=== PATIENT | female | born 1975 | race Caucasian/White ===

== ENCOUNTER 2016-12-02 21:01 | Emergency (ER) | payer OTHER ==
[~2016-12-02] VITALS: Ht 162.6 cm; Wt 110.7 kg
[~2016-12-02 21:01] MED LIST: AMOX1TAB61 PO; HYDR-971 PO
[2016-12-02 21:45] VITALS: BP 141/84
[2016-12-02] MEDS ORDERED: IBUPROFEN 800 MG TABLET. PO ONE (22:30)
[2016-12-02] MEDS ORDERED: LIDOCAINE 1% / SOD BICARB 8.4% 20 ML VIAL. IJ ONE (22:30)
[2016-12-02] MEDS ORDERED: SULF1TAB24 PO (22:43)
--- NOTE | 2016-12-02 22:43 | PHYS DOC ---
Past Medical History Past Medical History: Diabetes-Type II, High Cholesterol, Hypertension Additional Past Medical Histor: tachycardia, cellulitis Past Surgical History: Additional Past Surgical Histo: cervical cancer, R hand Alcohol Use: None Drug Use: None Adult General Chief Complaint Chief Complaint: SKIN PROBLEM HPI HPI Patient is a 41 year old female who presents with abscess. Patient reports she noticed a red spot appear on her L lateral thigh on Wednesday. It has not changed significantly since then, however she says that she has had abscesses get much worse in the past and require hospitalization; as she was unable to get into see her PCP soon, she presents to the ED for evaluation. She has not taken anything for symptoms prior to arrival. No fever. No other acute complaints. Review of Systems Review of Systems Constitutional: Denies fever or chills Respiratory: Denies cough or shortness of breath Cardiovascular: Denies chest pain GI: Denies abdominal pain, nausea, vomiting, or diarrhea Musculoskeletal: Abscess L lateral thigh Neurologic: Denies headache, focal weakness or sensory changes Current Medications Current Medications Current Medications Medications (Trade) Dose Ordered Sig/Xiao Start Time Stop Time Status Last Admin Dose Admin Ibuprofen (Motrin) 800 mg 1X ONCE 12/02/16 22:30 12/02/16 22:31 DC 12/02/16 22:20 800 MG Lidocaine/Sodium Bicarbonate (Buffered Lidocaine 1%) 20 ml 1X ONCE 12/02/16 22:30 12/02/16 22:31 DC 12/02/16 22:30 20 ML Trimethoprim/ Sulfamethoxazole (Bactrim Ds) 1 tab 1X ONCE 12/02/16 22:45 12/02/16 22:46 DC 12/02/16 22:45 1 TAB Allergies Allergies Allergies Coded Allergies Type Severity Reaction Last Updated Verified No Known Drug Allergies 07/29/14 No Physical Exam Physical Exam Constitutional: Well developed, well nourished, no acute distress, non-toxic appearance HENT: Normocephalic, atraumatic Eyes: EOMI, conjunctiva normal, no discharge Neck: No stridor Pulmonary: No respiratory distress Skin: Warm, dry; abscess to L lateral thigh, area of erythema ~2.5cm across with induration and central fluctuance Neurologic: Alert and oriented X 3 Current Patient Data Vital Signs Vital Signs Date Time Temp Pulse Resp B/P Pulse Ox O2 Delivery O2 Flow Rate FiO2 12/02/16 21:45 98.7 90 18 96 Room Air 98.7 EKG EKG [] Radiology/Procedures Radiology/Procedures [] Course & Med Decision Making Course & Med Decision Making Pertinent Labs and Imaging studies reviewed. (See chart for details) Patient is 41 year old female who presents with abscess to L lateral thigh. No systemic symptoms. Ibuprofen and dose of bactrim given in ED. I&D performed without complication. Discussed need to follow up in 2 days for wound check. Discharged with rx for course of bactrim, instructions for follow up, return precautions. Dragon Disclaimer Dragon Disclaimer This electronic medical record was generated, in whole or in part, using a voice recognition dictation system. PROCEDURE Procedure Indication: abscess Procedure: The patient was positioned appropriately. Local anesthesia was achieved with 6cc buffered lidocaine 1%. An incision was then made over the apex of the lesion with a #11 blade and 4cc purulent material was expressed. The drainage cavity was irrigated and packed with sterile gauze. The patient tolerated the procedure well. Complications: none. Departure Departure Impression: Primary Impression: Abscess Disposition: 01 HOME, SELF-CARE Condition: IMPROVED Referrals: Lala OLIVEROS MD (PCP) Patient Instructions: Abscess Additional Instructions: Thank you for allowing us to provide care today in the Emergency Department. Take the provided medication as directed. You will need to be seen again in two days to have the wound checked. You can see your primary care doctor for this, go to an urgent care, or return to the Emergency Department. Return promptly to the Emergency Department if you develop any new or concerning symptoms. Scripts Sulfamethoxazole/Trimethoprim (Bactrim Ds Tablet)1 Each Tablet1 Tab PO BID #14 TAB Prov:CAMDEN ROLAND MD 12/02/16 CAMDEN ROLAND MD Dec 02, 2016 22:43
[2016-12-02] MEDS ORDERED: SMZ/TMP 800/160MG TABLET. PO ONE (22:45)
== END 2016-12-02 22:51 | disposition home or self-care (01) ==
LOC: ER 21:01
DX: L02.416 Cutaneous abscess of left lower limb (principal); E11.9 Type 2 diabetes mellitus without complications; E78.00 Pure hypercholesterolemia, unspecified; I10 Essential (primary) hypertension
CPT/HCPCS: 10060; 99283-25

== ENCOUNTER → 2017-11-01 | Outpatient (CLI) | payer OTHER | END | disposition home or self-care (01) | LOC: MAMMO 14:33 | DX: Z12.31 Encounter for screening mammogram for malignant neoplasm of breast (principal); N60.42 Mammary duct ectasia of left breast | CPT/HCPCS: 77063; 77067 ==

== ENCOUNTER → 2017-11-05 | Outpatient (CLI) | payer OTHER | END | disposition home or self-care (01) | LOC: US 07:44 | DX: N60.42 Mammary duct ectasia of left breast (principal) | CPT/HCPCS: 76641 ==

== ENCOUNTER → 2018-02-02 | Outpatient (CLI) | payer OTHER | END | disposition home or self-care (01) | LOC: US 10:00 | DX: N92.0 Excessive and frequent menstruation with regular cycle (principal); N93.9 Abnormal uterine and vaginal bleeding, unspecified; N94.6 Dysmenorrhea, unspecified; I10 Essential (primary) hypertension; E11.8 Type 2 diabetes mellitus with unspecified complications; E78.00 Pure hypercholesterolemia, unspecified | CPT/HCPCS: 76830; 76856 ==

== ENCOUNTER 2018-03-10 05:55 | Day surgery (SDC) | payer OTHER ==
[2018-03-10] MEDS: IV RINGERS,LACTATED 1000ML 1,000 ML IV (06:37)
[2018-03-10 06:39] LABS: POC GLUCOSE 91 mg/dL (70-99)
[2018-03-10] MEDS ORDERED: LIDOCAINE 1% PF 2 ML VIAL. ID (07:00)
[2018-03-10] MEDS ORDERED: MORPHINE SULFATE 2 MG/ML DISP.SYRIN. IV (07:00)
[2018-03-10] MEDS ORDERED: ONDANSETRON PF 4 MG/2 ML VIAL. IV (07:00)
[2018-03-10] MEDS ORDERED: PROCHLORPERAZINE 10 MG/2 ML VIAL. IV (07:00)
[2018-03-10] MEDS ORDERED: fentaNYL PF VIAL 100 MCG/2 ML VIAL IV ×2 (07:00)
[2018-03-10 07:16] LABS: NEG OBC UR NEG; POS OBC UR POS
[2018-03-10] MEDS ORDERED: DEXAMETHASONE SOD PHOS 20 MG/5 ML VIAL. (07:16)
[2018-03-10] MEDS ORDERED: PROPOFOL 20 ML IV ×2 (07:16→08:31)
[2018-03-10] MEDS ORDERED: fentaNYL PF VIAL 100 MCG/2 ML VIAL (07:16)
[2018-03-10] MEDS ORDERED: LIDOCAINE 2% PF Vial for OR 5 ML VIAL. (07:16)
[2018-03-10] MEDS ORDERED: MIDAZOLAM HCL/PF 2 MG/2 ML VIAL. (07:16)
[2018-03-10] MEDS ORDERED: ONDANSETRON PF 4 MG/2 ML VIAL. (07:16)
[2018-03-10 07:17] LABS: U PREG PATIENT NEGATIVE (NEG)
[2018-03-10] MEDS ORDERED: ceFAZolin SODIUM 1 GM VIAL (09:08)
[2018-03-10] MEDS ORDERED: KETOROLAC 30 MG/ML INJ. (09:19)
[2018-03-10 10:00] LABS: POC GLUCOSE 94 mg/dL (70-99)
[2018-03-10] MEDS: oxyCODONE/APAP 5/325 1 TAB TABLET PO (10:06)
== END 2018-03-10 11:03 | disposition home or self-care (01) ==
LOC: SURG 05:55
DX: D25.9 Leiomyoma of uterus, unspecified (principal); N93.9 Abnormal uterine and vaginal bleeding, unspecified; N92.0 Excessive and frequent menstruation with regular cycle; N94.6 Dysmenorrhea, unspecified; I10 Essential (primary) hypertension; J44.9 Chronic obstructive pulmonary disease, unspecified; G47.30 Sleep apnea, unspecified; E66.9 Obesity, unspecified; K21.9 Gastro-esophageal reflux disease without esophagitis; E11.42 Type 2 diabetes mellitus with diabetic polyneuropathy; E78.00 Pure hypercholesterolemia, unspecified; Z85.41 Personal history of malignant neoplasm of cervix uteri; Z98.890 Other specified postprocedural states; Z87.440 Personal history of urinary (tract) infections; Z87.39 Personal history of other diseases of the musculoskeletal system and connective tissue; Z72.89 Other problems related to lifestyle; Z87.891 Personal history of nicotine dependence
CPT/HCPCS: 58558; 81025; 82962; A7015; J0690; J1100; J1885; J2001; J2250; J2405; J2704; J3010; J7120

== ENCOUNTER 2018-03-31 05:41 | Observation (INO) | payer OTHER ==
[2018-03-31] MEDS ORDERED: ceFAZolin SODIUM 3 GM in IV DEXTROSE 5% 100ML 100 ML IV (06:00)
[2018-03-31] MEDS ORDERED: ESTROGENS, CONJ VAGINAL CREAM 30GM TUBE. (06:25)
[2018-03-31] MEDS ORDERED: SURGICEL HEMOSTAT 4X8 EACH. (06:25)
[2018-03-31 06:42] LABS: POC GLUCOSE 76 mg/dL (70-99)
[2018-03-31 06:49] LABS: NEG OBC UR NEG; POS OBC UR POS
[2018-03-31 06:50] LABS: U PREG PATIENT NEGATIVE (NEG)
[2018-03-31] MEDS: IV RINGERS,LACTATED 1000ML 1,000 ML IV (06:56)
[2018-03-31] MEDS ORDERED: PROCHLORPERAZINE 10 MG/2 ML VIAL. IV ×2 (07:00→12:30)
[2018-03-31] MEDS ORDERED: LIDOCAINE 1% PF 2 ML VIAL. ID (07:00)
[2018-03-31] MEDS ORDERED: fentaNYL PF VIAL 100 MCG/2 ML VIAL IV (07:00)
[2018-03-31] MEDS ORDERED: ONDANSETRON PF 4 MG/2 ML VIAL. IV ×2 (07:00→12:30)
[2018-03-31 07:15] LABS: ADD MAN DIFF? NO
[2018-03-31 07:19] LABS: BASO % 0 % (0-3); EOS # 0.2 x10^3/uL (0.0-0.7); EOS % 2 % (0-3); HEMATOCRIT 41.9 % (36.0-47.0); HEMOGLOBIN 14.6 g/dL (12.0-15.5); LYMPH # 1.7 x10^3/uL (1.0-4.8); LYMPH % 19 % (24-48); MEAN CORPUSCULAR HEMOGLOBIN 31 pg (25-35); MEAN CORPUSCULAR HGB CONC 35 g/dL (31-37); MEAN CORPUSCULAR VOLUME 88 fL (79-100); MONO # 0.6 x10^3/uL (0.0-1.1); MONO % 8 % (0-9); NEUT % 71 % (31-73); PLATELET COUNT 368 x10^3/uL (140-400); RED BLOOD COUNT 4.75 x10^6/uL (3.50-5.40); RED CELL DISTRIBUTION WIDTH 12.7 % (11.5-14.5); WHITE BLOOD COUNT 8.5 x10^3/uL (4.0-11.0)
[2018-03-31] MEDS ORDERED: ROCURONIUM 50 MG/5 ML VIAL. ×2 (07:28→09:25)
[2018-03-31] MEDS ORDERED: fentaNYL PF VIAL 250 MCG/5 ML VIAL (07:28)
[2018-03-31] MEDS ORDERED: MIDAZOLAM HCL/PF 2 MG/2 ML VIAL. (07:28)
[2018-03-31] MEDS ORDERED: KETOROLAC 30 MG/ML INJ FOR OR. INJ (07:29)
[2018-03-31] MEDS ORDERED: ONDANSETRON PF 4 MG/2 ML VIAL. (07:29)
[2018-03-31] MEDS ORDERED: LIDOCAINE 2% PF Vial for OR 5 ML VIAL. (07:29)
[2018-03-31] MEDS ORDERED: DEXAMETHASONE SOD PHOS 20 MG/5 ML VIAL. (07:30)
[2018-03-31] MEDS ORDERED: NEOSTIGMINE METHYLSULFATE 5 MG/5 ML SYRINGE. (09:25)
[2018-03-31] MEDS ORDERED: GLYCOPYRROLATE 1 MG/5 ML VIAL. (09:25)
[2018-03-31] MEDS ORDERED: ROCURONIUM 100 MG/10 ML VIAL. (09:56)
[2018-03-31] MEDS: BUPIVACAINE-EPI 0.25%-1:200000 50 ML VIAL. (12:05)
[2018-03-31] MEDS: fentaNYL PF VIAL 100 MCG/2 ML VIAL IV ×4 (12:22→12:58)
[2018-03-31] MEDS ORDERED: diphenhydrAMINE 50 MG/ML VIAL IV (12:30)
[2018-03-31] MEDS ORDERED: 0.9 % SODIUM CHLORIDE 10 ML DISP.SYRIN. IV (12:30)
[2018-03-31] MEDS ORDERED: diphenhydrAMINE HCL 25 MG CAPSULE PO (12:30)
[2018-03-31] MEDS ORDERED: CALCIUM CARBONATE 500 MG TAB.CHEW PO (12:30)
[2018-03-31] MEDS ORDERED: DEXTROSE 50% 25 GM / 50ML DISP.SYRIN. IV ×2 (12:30→16:00)
[2018-03-31 12:35] LABS: POC GLUCOSE 134 mg/dL (70-99)
[2018-03-31] MEDS: MORPHINE SULFATE 2 MG/ML DISP.SYRIN. IV ×3 (12:37→13:17)
[2018-03-31] MEDS: KETOROLAC 30 MG/ML INJ. IV ×2 (14:50→21:06)
[2018-03-31 16:51] LABS: POC GLUCOSE 119 mg/dL (70-99)
[2018-03-31] MEDS: INSULIN LISPRO 300 UNITS/3 ML INSULN.PEN. SQ ×2 (17:00→21:20)
[2018-03-31] MEDS: oxyCODONE/APAP 5/325 1 TAB TABLET PO ×2 (18:06→22:04)
[2018-03-31] MEDS: GABAPENTIN 300 MG CAPSULE. PO (21:06)
[2018-03-31 21:26] LABS: POC GLUCOSE 211 mg/dL (70-99)
[2018-03-31] MEDS: ZOLPIDEM 5 MG TABLET. PO (22:04)
[2018-03-31] MEDS: SIMETHICONE 80 MG TAB.CHEW PO (22:04)
[2018-04-01] MEDS: oxyCODONE/APAP 5/325 1 TAB TABLET PO ×2 (02:11→06:03)
[2018-04-01] MEDS: GABAPENTIN 300 MG CAPSULE. PO (06:02)
[2018-04-01] MEDS: KETOROLAC 30 MG/ML INJ. IV (06:02)
[2018-04-01 07:58] LABS: POC GLUCOSE 161 mg/dL (70-99)
[2018-04-01 08:18] LABS: ADD MAN DIFF? NO
[2018-04-01 08:28] LABS: BASO % 0 % (0-3); EOS # 0.1 x10^3/uL (0.0-0.7); EOS % 1 % (0-3); HEMATOCRIT 35.9 % (36.0-47.0); HEMOGLOBIN 12.4 g/dL (12.0-15.5); LYMPH # 2.1 x10^3/uL (1.0-4.8); LYMPH % 26 % (24-48); MEAN CORPUSCULAR HEMOGLOBIN 31 pg (25-35); MEAN CORPUSCULAR HGB CONC 35 g/dL (31-37); MEAN CORPUSCULAR VOLUME 88 fL (79-100); MONO # 0.6 x10^3/uL (0.0-1.1); MONO % 7 % (0-9); NEUT # 5.2 x10^3uL (1.8-7.7); NEUT % 65 % (31-73); PLATELET COUNT 331 x10^3/uL (140-400); RED BLOOD COUNT 4.06 x10^6/uL (3.50-5.40); RED CELL DISTRIBUTION WIDTH 12.8 % (11.5-14.5)
[2018-04-01] MEDS: SIMETHICONE 80 MG TAB.CHEW PO (08:31)
== END 2018-04-01 10:05 | disposition home or self-care (01) ==
LOC: SURG 05:41 → 3 NORTH 12:20
DX: D25.9 Leiomyoma of uterus, unspecified (principal); N92.0 Excessive and frequent menstruation with regular cycle; N93.9 Abnormal uterine and vaginal bleeding, unspecified; N94.6 Dysmenorrhea, unspecified; K66.0 Peritoneal adhesions (postprocedural) (postinfection); Z79.899 Other long term (current) drug therapy; G89.29 Other chronic pain; Z90.721 Acquired absence of ovaries, unilateral
CPT/HCPCS: 36415; 81025; 82962; 85025; 86850; 86900; 86901; 96372; 96374; 96376; A7015; G0378; G0379; J0780; J1100; J1815; J1885; J2001; J2250; J2270; J2405; J2710; J3010; J3490; J7030; J7120

== ENCOUNTER 2018-06-15 18:41 | Emergency (ER) | payer OTHER ==
[~2018-06-15] VITALS: Ht 162.6 cm; Wt 127.0 kg
[~2018-06-15 18:41] MED LIST changes: +ACET500T68 PO; +ATOR40TA PO; +DOCU-109 PO; +ETOD500T PO; +IBUP-1007 PO; +IBUP-1060 PO; +INSU100C4 SQ; +INSU100I13 SQ; +INSU100V13 SQ; +LISI-130 PO; +METF10007 PO; +ONDA8TAB12 PO; +OXYC-323 PO; +PREG75CA PO; +SULF1TAB24 PO
[2018-06-15 18:58] VITALS: BP 186/86
[2018-06-15 19:03] LABS: BILIRUBIN,URINE LARGE (NEG); CLARITY,URINE CLEAR; COLOR,URINE YELLOW; NITRITE,URINE NEGATIVE (NEG); PH,URINE 6.5; PROTEIN,URINE NEGATIVE (NEG-TRACE); UROBILINOGEN,URINE 0.2 mg/dL (0.2 mg/dL)
[2018-06-15 19:17] LABS: BACTERIA,URINE MODERATE /HPF (0-FEW); RBC,URINE 0 /HPF (0-2); SQUAMOUS EPITHELIAL CELL,UR MANY /LPF
[2018-06-15] MEDS ORDERED: SULF1TAB24 PO (19:28)
[2018-06-15] MEDS ORDERED: TRAM50TA PO (19:29)
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
== END 2018-06-15 19:34 | disposition home or self-care (01) ==
LOC: ER 18:41
DX: N30.00 Acute cystitis without hematuria (principal); E78.00 Pure hypercholesterolemia, unspecified; I10 Essential (primary) hypertension; Z98.890 Other specified postprocedural states; Z90.710 Acquired absence of both cervix and uterus
CPT/HCPCS: 81001; 87086; 99284

== ENCOUNTER 2018-11-08 14:23 | Emergency (ER) | payer OTHER, BC ==
[~2018-11-08] VITALS: Ht 162.6 cm; Wt 122.5 kg
[~2018-11-08 14:23] MED LIST changes: +HYDR-3164 PO; -HYDR-971 PO; -OXYC-323 PO; +OXYC1TAB15 PO; +TRAM50TA PO
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
[2018-11-08 14:53] LABS: BASO % 0 % (0-3); EOS # 0.2 x10^3/uL (0.0-0.7); EOS % 2 % (0-3); HEMATOCRIT 45.9 % (36.0-47.0); HEMOGLOBIN 15.3 g/dL (12.0-15.5); LYMPH # 1.7 x10^3/uL (1.0-4.8); LYMPH % 17 % (24-48); MEAN CORPUSCULAR HEMOGLOBIN 30 pg (25-35); MEAN CORPUSCULAR HGB CONC 33 g/dL (31-37); MEAN CORPUSCULAR VOLUME 89 fL (79-100); MONO # 0.8 x10^3/uL (0.0-1.1); MONO % 8 % (0-9); NEUT # 7.4 x10^3uL (1.8-7.7); NEUT % 73 % (31-73); PLATELET COUNT 365 x10^3/uL (140-400); RED BLOOD COUNT 5.14 x10^6/uL (3.50-5.40); WHITE BLOOD COUNT 10.1 x10^3/uL (4.0-11.0)
[2018-11-08] MEDS ORDERED: CONTRAST GIVEN. MC PRN (15:00)
[2018-11-08] MEDS ORDERED: IOHEXOL 300 MG/ML 100ML VIAL. IV ONE (15:00)
[2018-11-08] MEDS ORDERED: MORPHINE SULFATE 4 MG/ML VIAL. IV ONE (15:15)
[2018-11-08 16:08] LABS: CALCIUM 9.6 mg/dL (8.5-10.1); CREATININE 1.4 mg/dL (0.6-1.0); POTASSIUM 4.1 mmol/L (3.5-5.1)
[2018-11-08 16:13] LABS: ALBUMIN 4.3 g/dL (3.4-5.0); ALBUMIN/GLOBULIN RATIO 1.2 (1.0-1.7); TOTAL BILIRUBIN 0.7 mg/dL (0.2-1.0); TOTAL PROTEIN 7.9 g/dL (6.4-8.2)
[2018-11-08] MEDS ORDERED: IV NORMAL SALINE 1000ML BAG 1,000 ML IV ONE (16:45)
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
[2018-11-08 17:00] VITALS: BP 137/73
[2018-11-08] MEDS ORDERED: HYDROcodone/APAP 5/325MG 1 TAB TABLET PO ONE (17:00)
[2018-11-08] MEDS ORDERED: CYCL10TA2 PO (17:18)
[2018-11-08] MEDS ORDERED: HYDR-3164 PO (17:18)
== END 2018-11-08 17:40 | disposition home or self-care (01) ==
LOC: ER 14:23
DX: S20.212A Contusion of left front wall of thorax, initial encounter (principal); S30.1XXA Contusion of abdominal wall, initial encounter; R51 Headache; M54.2 Cervicalgia; E11.9 Type 2 diabetes mellitus without complications; E78.00 Pure hypercholesterolemia, unspecified; I10 Essential (primary) hypertension; Z98.890 Other specified postprocedural states; Z90.710 Acquired absence of both cervix and uterus; V43.53XA Car driver injured in collision with pick-up truck in traffic accident, initial encounter; Y93.89 Activity, other specified; Y92.410 Unspecified street and highway as the place of occurrence of the external cause; Y99.8 Other external cause status
CPT/HCPCS: 36415; 70450; 71260; 72125; 74177; 80053; 83690; 85025; 85610; 85730; 86850; 86900; 86901; 96374; 99284; G0480; J2270; J7030; Q9967

== ENCOUNTER 2018-11-14 17:26 | Emergency (ER) | payer OTHER ==
[~2018-11-14 17:26] MED LIST changes: +CYCL10TA2 PO
== END 2018-11-14 17:53 | disposition left against medical advice (07) ==
LOC: ER 17:26
DX: M54.2 Cervicalgia (principal); Z53.21 Procedure and treatment not carried out due to patient leaving prior to being seen by health care provider

== ENCOUNTER 2018-12-12 05:22 | Observation (INO) | payer BC, OTHER ==
[~2018-12-12] VITALS: Ht 162.6 cm; Wt 117.9 kg
[2018-12-12 06:07] LABS: BASO % 0 % (0-3); EOS % 0 % (0-3); HEMATOCRIT 42.3 % (36.0-47.0); HEMOGLOBIN 14.2 g/dL (12.0-15.5); LYMPH # 0.7 x10^3/uL (1.0-4.8); LYMPH % 9 % (24-48); MEAN CORPUSCULAR HEMOGLOBIN 30 pg (25-35); MEAN CORPUSCULAR HGB CONC 34 g/dL (31-37); MEAN CORPUSCULAR VOLUME 90 fL (79-100); MONO # 0.2 x10^3/uL (0.0-1.1); MONO % 3 % (0-9); NEUT # 7.2 x10^3uL (1.8-7.7); NEUT % 88 % (31-73); PLATELET COUNT 360 x10^3/uL (140-400); RED CELL DISTRIBUTION WIDTH 13.2 % (11.5-14.5); WHITE BLOOD COUNT 8.2 x10^3/uL (4.0-11.0)
[2018-12-12 06:24] LABS: CALCIUM 8.5 mg/dL (8.5-10.1); CREATININE 0.5 mg/dL (0.6-1.0); GFR 134.7; POTASSIUM 3.9 mmol/L (3.5-5.1)
[2018-12-12 06:31] LABS: ALBUMIN 3.1 g/dL (3.4-5.0); ALBUMIN/GLOBULIN RATIO 0.8 (1.0-1.7); TOTAL BILIRUBIN 0.2 mg/dL (0.2-1.0); TOTAL PROTEIN 6.8 g/dL (6.4-8.2)
--- NOTE | 2018-12-12 06:58 | PHYS DOC ---
Past Medical History Past Medical History: COPD, Diabetes-Type I, Diabetes-Type II, Hypertension Additional Past Medical Histor: tachycardia, cellulitis Past Surgical History: , Hysterectomy Additional Past Surgical Histo: cervical cancer, R hand Smokin Pack Per Day Alcohol Use: None Drug Use: None Adult General Chief Complaint Chief Complaint: HYPOGLYCEMIA HPI HPI Patient is a 43 year old female brought in by EMS services. She reports that she ate candy last night and took 80 units of her insulin instead of the normal 20 units. She reports that she went to sleep and then woke up in the ambulance. She does not know why she was in the ambulance but believes her called to have her brought to the hospital. She is currently cold and reports that her hands are numb. She denies chest pain, SOB, head ache, f/c/n/v/d. She is unsure if she lost consciousness and denies any falls. She is not currently in any pain and denies change in bowel habits or urinary symptoms. She has a history of COPD and T2DM. She smokes 1 ppd, denies etoh and recreational drug use. Review of Systems Review of Systems Constitutional: Denies fever or chills, NAD Eyes: Denies change in visual acuity, redness, or eye pain HENT: Denies nasal congestion or sore throat Respiratory: Reports unproductive cough. Denies shortness of breath. Cardiovascular: No additional information not addressed in HPI GI: Denies abdominal pain, nausea, vomiting, bloody stools or diarrhea : Denies dysuria or hematuria Musculoskeletal: Denies back pain or joint pain Integument: Denies rash or skin lesions Neurologic: Denies headache, focal weakness or sensory changes Endocrine: Denies polyuria or polydipsia All other systems were reviewed and found to be within normal limits, except as documented in this note. Family History Family History non contributory Current Medications Current Medications Current Medications Medications (Trade) Dose Ordered Sig/Xiao Start Time Stop Time Status Last Admin Dose Admin Dextrose/Sodium Chloride 1,000 ml @ 75 mls/hr 1X ONCE 12/12/18 08:30 12/12/18 21:49 12/12/18 08:30 75 MLS/HR see med list Allergies Allergies Allergies Coded Allergies Type Severity Reaction Last Updated Verified No Known Drug Allergies 03/31/18 No Physical Exam Physical Exam Constitutional: Well developed, well nourished, no acute distress, non-toxic appearance. [] HENT: Normocephalic, atraumatic, bilateral external ears normal, oropharynx moist, no oral exudates, nose normal. [] Eyes: PERRLA, EOMI, conjunctiva normal, no discharge. [] Neck: Normal range of motion, no tenderness, supple, no stridor. [] Cardiovascular:Heart rate regular rhythm, no murmur [] Lungs & Thorax: Mildly coarse breath sounds bilateral lower lobes Abdomen: Bowel sounds normal, soft, no tenderness, no masses, no pulsatile masses. [] Skin: Warm, dry, no erythema, no rash. [] Back: No tenderness, no CVA tenderness. [] Extremities: No tenderness, no cyanosis, no clubbing, ROM intact, no edema. [] Neurologic: Alert and oriented X 3, CN2-11 intake, negative cerebellar exam, normal motor function, normal sensory function, no focal deficits noted. [] Psychologic: Affect normal, judgement normal, mood normal. [] Current Patient Data Vital Signs Vital Signs Date Time Temp Pulse Resp B/P (MAP) Pulse Ox O2 Delivery O2 Flow Rate FiO2 12/12/18 08:30 110 139/100 (113) 97 12/12/18 08:00 Room Air 12/12/18 07:35 97.8 97.8 12/12/18 06:52 20 Lab Values Laboratory Tests Test 12/12/18 05:30 12/12/18 05:55 12/12/18 07:12 12/12/18 07:18 Glucose (Fingerstick) 67 mg/dL (70-99) L White Blood Count 8.2 x10^3/uL (4.0-11.0) Red Blood Count 4.70 x10^6/uL (3.50-5.40) Hemoglobin 14.2 g/dL (12.0-15.5) Hematocrit 42.3 % (36.0-47.0) Mean Corpuscular Volume 90 fL (79-100) Mean Corpuscular Hemoglobin 30 pg (25-35) Mean Corpuscular Hemoglobin Concent 34 g/dL (31-37) Red Cell Distribution Width 13.2 % (11.5-14.5) Platelet Count 360 x10^3/uL (140-400) Neutrophils (%) (Auto) 88 % (31-73) H Lymphocytes (%) (Auto) 9 % (24-48) L Monocytes (%) (Auto) 3 % (0-9) Eosinophils (%) (Auto) 0 % (0-3) Basophils (%) (Auto) 0 % (0-3) Neutrophils # (Auto) 7.2 x10^3uL (1.8-7.7) Lymphocytes # (Auto) 0.7 x10^3/uL (1.0-4.8) L Monocytes # (Auto) 0.2 x10^3/uL (0.0-1.1) Eosinophils # (Auto) 0.0 x10^3/uL (0.0-0.7) Basophils # (Auto) 0.0 x10^3/uL (0.0-0.2) Platelet Estimate Pending Sodium Level 138 mmol/L (136-145) Potassium Level 3.9 mmol/L (3.5-5.1) Chloride Level 100 mmol/L (98-107) Carbon Dioxide Level 33 mmol/L (21-32) H Anion Gap 5 (6-14) L Blood Urea Nitrogen 14 mg/dL (7-20) Creatinine 0.5 mg/dL (0.6-1.0) L Estimated GFR (Cockcroft-Gault) 134.7 BUN/Creatinine Ratio 28 (6-20) H Glucose Level 116 mg/dL (70-99) H Calcium Level 8.5 mg/dL (8.5-10.1) Total Bilirubin 0.2 mg/dL (0.2-1.0) Aspartate Amino Transferase (AST) 18 U/L (15-37) Alanine Aminotransferase (ALT) 30 U/L (14-59) Alkaline Phosphatase 88 U/L (46-116) Creatine Kinase 137 U/L (26-192) Creatine Kinase MB (Mass) 4.7 ng/mL (0.0-3.6) H Creatine Kinase MB Relative Index 3.4 % (0-4) Troponin I Quantitative < 0.017 ng/mL (0.000-0.055) XY-Ycy-N-Type Natriuretic Peptide 76 pg/mL (0-124) Total Protein 6.8 g/dL (6.4-8.2) Albumin 3.1 g/dL (3.4-5.0) L Albumin/Globulin Ratio 0.8 (1.0-1.7) L Prothrombin Time 12.2 SEC (11.7-14.0) Prothrombin Time INR 0.9 (0.8-1.1) PTT 25 SEC (24-38) Urine Collection Type Unknown Urine Color Yellow Urine Clarity Clear Urine pH 6.0 Urine Specific [place] 1.020 Urine Protein Negative mg/dL (NEG-TRACE) Urine Glucose (UA) Negative mg/dL (NEG) Urine Ketones (Stick) Negative mg/dL (NEG) Urine Blood Negative (NEG) Urine Nitrite Negative (NEG) Urine Bilirubin Negative (NEG) Urine Urobilinogen Dipstick 0.2 mg/dL (0.2 mg/dL) Urine Leukocyte Esterase Negative (NEG) Urine RBC Occ /HPF (0-2) Urine WBC Occ /HPF (0-4) Urine Squamous Epithelial Cells Mod /LPF Urine Bacteria Few /HPF (0-FEW) Test 12/12/18 08:27 12/12/18 08:40 Glucose (Fingerstick) 35 mg/dL (70-99) *L 42 mg/dL (70-99) *L Laboratory Tests 12/12/18 05:55 Laboratory Tests 12/12/18 05:55 EKG EKG [] Radiology/Procedures Radiology/Procedures [] Impressions: he heart size is normal. A small left basilar pulmonary nodule has been shown to be a calcified granuloma on a previous CT study. No acute infiltrate is seen. There is no evidence of pleural fluid. IMPRESSION: No acute cardiopulmonary abnormality is detected. Electronically signed by: Luis Awan MD (12/12/2018 7:35 AM) [facility] DICTATED and SIGNED BY: LUIS AWAN MD DATE: 12/12/18 0735 Course & Med Decision Making Course & Med Decision Making Pertinent Labs and Imaging studies reviewed. (See chart for details) []43-year-old type II diabetic who took 80 units instead of 20 units of her long -acting insulin last night unfortunately she remains persistently hypoglycemic in the emergency room despite eating a protein breakfast with eggs etc. I spoke with Dr. CARTER plan to admit for D5 DRIP AND MONITORING Dragon Disclaimer Dragon Disclaimer This electronic medical record was generated, in whole or in part, using a voice recognition dictation system. Departure Departure Impression: Primary Impression: Hypoglycemia Disposition: ADMITTED INPATIENT Admitting Physician: Stephanie Carter Condition: STABLE Referrals: EDELMIRA SÁNCHEZ (PCP) GOPAL CAGLE MD Dec 12, 2018 06:58
[2018-12-12 07:31] LABS: BILIRUBIN,URINE NEGATIVE (NEG); CLARITY,URINE CLEAR; COLOR,URINE YELLOW; NITRITE,URINE NEGATIVE (NEG); PROTEIN,URINE NEGATIVE (NEG-TRACE); UROBILINOGEN,URINE 0.2 mg/dL (0.2 mg/dL)
--- NOTE | 2018-12-12 07:38 | RAD ---
Portable chest, 12/12/2018: HISTORY: Hypoglycemia, aspiration The heart size is normal. A small left basilar pulmonary nodule has been shown to be a calcified granuloma on a previous CT study. No acute infiltrate is seen. There is no evidence of pleural fluid. IMPRESSION: No acute cardiopulmonary abnormality is detected. Electronically signed by: Maikel Awan MD (12/12/2018 7:35 AM) [facility]
[2018-12-12 07:41] LABS: PROTHROMBIN TIME PATIENT 12.2 SEC (11.7-14.0)
--- NOTE | 2018-12-12 07:47 | EKG ---
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
[2018-12-12 07:53] LABS: BACTERIA,URINE FEW /HPF (0-FEW); RBC,URINE OCC /HPF (0-2); WBC,URINE OCC /HPF (0-4)
[2018-12-12 07:54] LABS: SQUAMOUS EPITHELIAL CELL,UR MOD /LPF
[2018-12-12] MEDS ORDERED: IV DEXTROSE 5% - 0.9 % NACL 1,000 ML IV ONE (08:30)
[2018-12-12] MEDS ORDERED: CYCLOBENZAPRINE 10 MG TABLET. PO PRN (10:15)
--- NOTE | 2018-12-12 10:19 | PDOC ---
Provider Note Provider Note pt seen.H&P to be dictated.#[id number]. TAN CARTER MD Dec 12, 2018 10:19
[2018-12-12 10:39] LABS: % BASOS 1 % (0-3); % LYMPHS 7 % (24-48); % MONOS 2 % (0-10); % SEGS 90 % (35-66); PLT ESTIMATE ADEQUATE (ADEQUATE)
[2018-12-12] MEDS: DEXTROSE 50% 25 GM / 50ML DISP.SYRIN. IV PRN ×5 (10:46→21:18)
[2018-12-12 11:00] VITALS: BP 148/82
[2018-12-12] MEDS: DOCUSATE SODIUM 100 MG CAPSULE. PO SCH ×2 (11:14→20:05)
[2018-12-12] MEDS: PREGABALIN 75 MG CAPSULE PO SCH ×2 (11:14→20:05)
[2018-12-12] MEDS: HYDROcodone/APAP 5/325MG 1 TAB TABLET PO PRN ×3 (11:14→22:26)
[2018-12-12] MEDS: LISINOPRIL 20 MG TABLET PO SCH (11:15)
[2018-12-12 15:00] VITALS: BP 137/78
[2018-12-12 19:00] VITALS: BP 138/68
[2018-12-12] MEDS ORDERED: ATORVASTATIN CALCIUM 40 MG TABLET. PO SCH (21:00)
--- NOTE | 2018-12-12 21:08 | HP ---
ADMIT DATE: 12/12/2018 PATIENT'S LOCATION: [facility]. REASON FOR ADMISSION TO THE HOSPITAL: Hypoglycemia, the patient has insulin-dependent diabetes and took extra insulin last night. HISTORY OF PRESENT ILLNESS: The patient is a 43-year-old female with a history of type 2 diabetes, she has been a diabetic for almost more than 20 years. She is on Tresiba, usually takes 20 units and then NovoLog 10 units with each meal. She does not have a glucometer. She is not checking her sugars lately and she has been eating a lot of candy. She decided to take instead of 20/80 of Tresiba, she took 80 and this morning, she was hypoglycemic, confused, brought to the hospital, blood sugar was 40, and even in spite of a good breakfast, the sugars were kind of running low, was given D5, and was admitted overnight for observation. PAST MEDICAL HISTORY: Diabetes, hypertension, hyperlipidemia, obesity. PAST SURGICAL HISTORY: , hysterectomy, cervical cancer. PERSONAL HISTORY: Smokes 1 pack per day. Denies alcohol or drug abuse. FAMILY HISTORY: Positive for diabetes and hypertension. ALLERGIES: No known drug allergies. MEDICATIONS AT HOME: The patient is on oxycodone q.6, Bactrim for UTI, tramadol for pain, Tylenol, etodolac 500 mg, ibuprofen p.r.n., insulin 10 units 3 times daily, NovoLog and then Tresiba 20 units, metformin 1000 mg twice a day, Zofran for nausea, atorvastatin 40 mg daily, cyclobenzaprine 10 mg 3 times daily, Colace 100 mg daily, hydrocodone for pain, lisinopril 40 mg daily, Lyrica 75 mg daily. REVIEW OF SYSTEMS: Negative for chest pain, shortness of breath, or abdominal pain. PHYSICAL EXAMINATION: GENERAL: The patient is not in any distress. VITAL SIGNS: At the time of admission, temperature 98, pulse 99, respirations 18, blood pressure 140/90, 94% on room air. HEENT: Head is atraumatic. Pupils equal. Oral cavity: No congestion. NECK: Supple. Thyroid not enlarged. JVD not elevated. CHEST: Symmetrical. CARDIOVASCULAR: S1, S2. LUNGS: Clear to auscultation. ABDOMEN: Soft, bowel sounds present, no masses palpable. EXTERNAL GENITALIA: No Le. RECTAL: Deferred. EXTREMITIES: No calf tenderness. There is no edema. Pulses 1+. NEUROLOGIC: Moving all extremities. No focal deficits noted. LABORATORY DATA: Shows a white count of 8, hemoglobin 14, platelets 360. INR 0.9. Electrolytes show sodium 138, potassium 3.9, chloride 100, bicarbonate 33, anion gap 5, BUN 14, creatinine 0.5, glucose 67, went down to 35. Chest x-ray was negative. EKG, sinus tachycardia. FINAL IMPRESSION: 1. Hypoglycemia. 2. The patient took more than her usual dose of insulin, Tresiba long-acting insulin normally takes 20, she took 80, and she developed hypoglycemia. 3. Type 2 diabetes, noncompliant. 4. Hypertension. 5. Hyperlipidemia. PLAN: At this time, the patient was given D50, given a good breakfast without improvement, her sugars are going down, and was admitted overnight for observation. Hold any insulin. Check fingersticks q.4h. Give D5W and monitor. TAN CARTER MD DR: SANTHOSH/arash JOB#: [id number] / [id number] EDELMIRA Stauffer
[2018-12-12] MEDS ORDERED: ZOLPIDEM 5 MG TABLET. PO ONE (22:30)
[2018-12-12 23:00] VITALS: BP 118/70
[2018-12-13] MEDS: DEXTROSE 50% 25 GM / 50ML DISP.SYRIN. IV PRN ×2 (02:20→06:16)
[2018-12-13 03:00] VITALS: BP 146/77
[2018-12-13 05:56] LABS: CALCIUM 8.1 mg/dL (8.5-10.1); CREATININE 0.5 mg/dL (0.6-1.0); GFR 134.7; POTASSIUM 3.7 mmol/L (3.5-5.1)
[2018-12-13 05:57] LABS: CHOLESTEROL/HDL RATIO 2.8
[2018-12-13 07:05] VITALS: BP 136/87
[2018-12-13] MEDS: LISINOPRIL 20 MG TABLET PO SCH (08:42)
[2018-12-13] MEDS: DOCUSATE SODIUM 100 MG CAPSULE. PO SCH (08:43)
[2018-12-13] MEDS: PREGABALIN 75 MG CAPSULE PO SCH (08:43)
--- NOTE | 2018-12-13 09:24 | DISCH ---
DISCHARGE INSTRUCTIONS Condition on Discharge Condition on Discharge: Stable Activity After Discharge Activity Instructions for Disc: Activity as tolerated Diet after Discharge Diet after Discharge: Diabetic No Calorie Level Diet Texture: Regular Liquid Texture: Thin Liquid Checks after Discharge Checks after discharge: Check blood sugar, ac/hs DC Comment: hold insulin if blood sugar less than 100 Contacting the DRAlbaro after DC Call your doctor for: Concerns you may have Follow-Up Follow up with: see Dr. Rausch in 3 days. Treatment/Equipment after DC Adaptive Equipment Issued: None JASS MARTINI MD Dec 13, 2018 09:24
[2018-12-13] MEDS ORDERED: INSU100I30 SQ (10:43)
--- NOTE | 2018-12-13 10:48 | PDOC ---
IM PROGRESS NOTES- Subjective Subjective No compressive pain, dyspnea or dizziness. Patient recently started taking Ozempic 0.5 mg subcutaneous once a week. Taking Humalog 10 units subcutaneous 3 times a day as well as a proceed back 20 units subcutaneous daily but yesterday but she took to see by 80 units twice a day because she was eating candy. She stated that she will never do that again. She is feeling much better. Objective Vitals Vital Signs Date Time Temp Pulse Resp B/P (MAP) Pulse Ox O2 Delivery O2 Flow Rate FiO2 12/13/18 08:42 98 136/87 12/13/18 08:00 Room Air 12/13/18 07:05 98.1 18 95 98.1 Input & Output Intake and Output 12/13/18 07:00 Intake Total 940 ml Balance 940 ml Intake Oral 940 ml # Voids 3 Physical Exam Physical Exam General appearance - alert,well appearing, and in no distress and oriented to person, place, and time Mental Status - alert, oriented to person, place, and time, affect appropriate to mood Head - normal Chest - clear to auscultation, no wheezes, rales or rhonchi, symmetric air entry Heart - S1 and S2 normal Abdomen - soft, nontender, nondistended, no masses or organomegaly Neurological - alert and oriented Musculoskeletal - no muscular tenderness noted Extremities - no pedal edema Skin - warm and dry Labs Laboratory Tests Test 12/12/18 05:30 12/12/18 05:55 12/12/18 07:12 12/12/18 07:18 Glucose (Fingerstick) 67 mg/dL (70-99) White Blood Count 8.2 x10^3/uL (4.0-11.0) Red Blood Count 4.70 x10^6/uL (3.50-5.40) Hemoglobin 14.2 g/dL (12.0-15.5) Hematocrit 42.3 % (36.0-47.0) Mean Corpuscular Volume 90 fL (79-100) Mean Corpuscular Hemoglobin 30 pg (25-35) Mean Corpuscular Hemoglobin Concent 34 g/dL (31-37) Red Cell Distribution Width 13.2 % (11.5-14.5) Platelet Count 360 x10^3/uL (140-400) Neutrophils (%) (Auto) 88 % (31-73) Lymphocytes (%) (Auto) 9 % (24-48) Monocytes (%) (Auto) 3 % (0-9) Eosinophils (%) (Auto) 0 % (0-3) Basophils (%) (Auto) 0 % (0-3) Neutrophils # (Auto) 7.2 x10^3uL (1.8-7.7) Lymphocytes # (Auto) 0.7 x10^3/uL (1.0-4.8) Monocytes # (Auto) 0.2 x10^3/uL (0.0-1.1) Eosinophils # (Auto) 0.0 x10^3/uL (0.0-0.7) Basophils # (Auto) 0.0 x10^3/uL (0.0-0.2) Segmented Neutrophils % 90 % (35-66) Lymphocytes % 7 % (24-48) Monocytes % 2 % (0-10) Basophils % 1 % (0-3) Platelet Estimate Adequate (ADEQUATE) Sodium Level 138 mmol/L (136-145) Potassium Level 3.9 mmol/L (3.5-5.1) Chloride Level 100 mmol/L (98-107) Carbon Dioxide Level 33 mmol/L (21-32) Anion Gap 5 (6-14) Blood Urea Nitrogen 14 mg/dL (7-20) Creatinine 0.5 mg/dL (0.6-1.0) Estimated GFR (Cockcroft-Gault) 134.7 BUN/Creatinine Ratio 28 (6-20) Glucose Level 116 mg/dL (70-99) Calcium Level 8.5 mg/dL (8.5-10.1) Total Bilirubin 0.2 mg/dL (0.2-1.0) Aspartate Amino Transf (AST/SGOT) 18 U/L (15-37) Alanine Aminotransferase (ALT/SGPT) 30 U/L (14-59) Alkaline Phosphatase 88 U/L (46-116) Creatine Kinase 137 U/L (26-192) Creatine Kinase MB (Mass) 4.7 ng/mL (0.0-3.6) Creatine Kinase MB Relative Index 3.4 % (0-4) Troponin I Quantitative < 0.017 ng/mL (0.000-0.055) YW-Xlb-S-Type Natriuretic Peptide 76 pg/mL (0-124) Total Protein 6.8 g/dL (6.4-8.2) Albumin 3.1 g/dL (3.4-5.0) Albumin/Globulin Ratio 0.8 (1.0-1.7) Prothrombin Time 12.2 SEC (11.7-14.0) Prothromb Time International Ratio 0.9 (0.8-1.1) Activated Partial Thromboplast Time 25 SEC (24-38) Urine Collection Type Unknown Urine Color Yellow Urine Clarity Clear Urine pH 6.0 Urine Specific [place] 1.020 Urine Protein Negative mg/dL (NEG-TRACE) Urine Glucose (UA) Negative mg/dL (NEG) Urine Ketones (Stick) Negative mg/dL (NEG) Urine Blood Negative (NEG) Urine Nitrite Negative (NEG) Urine Bilirubin Negative (NEG) Urine Urobilinogen Dipstick 0.2 mg/dL (0.2 mg/dL) Urine Leukocyte Esterase Negative (NEG) Urine RBC Occ /HPF (0-2) Urine WBC Occ /HPF (0-4) Urine Squamous Epithelial Cells Mod /LPF Urine Bacteria Few /HPF (0-FEW) Test 12/12/18 08:27 12/12/18 08:40 12/12/18 09:34 12/12/18 10:30 Glucose (Fingerstick) 35 mg/dL (70-99) 42 mg/dL (70-99) 57 mg/dL (70-99) 43 mg/dL (70-99) Test 12/12/18 11:19 12/12/18 11:44 12/12/18 15:19 12/12/18 15:49 Glucose (Fingerstick) 64 mg/dL (70-99) 102 mg/dL (70-99) 46 mg/dL (70-99) 125 mg/dL (70-99) Test 12/12/18 16:48 12/12/18 17:27 12/12/18 20:52 12/12/18 21:15 Glucose (Fingerstick) 53 mg/dL (70-99) 118 mg/dL (70-99) 53 mg/dL (70-99) 68 mg/dL (70-99) Test 12/12/18 22:27 12/13/18 01:04 12/13/18 01:26 12/13/18 02:40 Glucose (Fingerstick) 93 mg/dL (70-99) 63 mg/dL (70-99) 68 mg/dL (70-99) 125 mg/dL (70-99) Test 12/13/18 05:00 12/13/18 06:07 12/13/18 06:31 12/13/18 07:50 Sodium Level 139 mmol/L (136-145) Potassium Level 3.7 mmol/L (3.5-5.1) Chloride Level 102 mmol/L (98-107) Carbon Dioxide Level 29 mmol/L (21-32) Anion Gap 8 (6-14) Blood Urea Nitrogen 13 mg/dL (7-20) Creatinine 0.5 mg/dL (0.6-1.0) Estimated GFR (Cockcroft-Gault) 134.7 Glucose Level 61 mg/dL (70-99) Calcium Level 8.1 mg/dL (8.5-10.1) Triglycerides Level 99 mg/dL (0-150) Cholesterol Level 155 mg/dL (0-200) LDL Cholesterol, Calculated 79 mg/dL (0-100) VLDL Cholesterol, Calculated 20 mg/dL (0-40) Non-HDL Cholesterol Calculated 99 mg/dL (0-129) HDL Cholesterol 56 mg/dL (40-60) Cholesterol/HDL Ratio 2.8 Thyroid Stimulating Hormone (TSH) 0.767 uIU/mL (0.358-3.74) Glucose (Fingerstick) 36 mg/dL (70-99) 119 mg/dL (70-99) 82 mg/dL (70-99) Laboratory Tests Test 12/12/18 11:19 12/12/18 11:44 12/12/18 15:19 12/12/18 15:49 Glucose (Fingerstick) 64 mg/dL (70-99) 102 mg/dL (70-99) 46 mg/dL (70-99) 125 mg/dL (70-99) Test 12/12/18 16:48 12/12/18 17:27 12/12/18 20:52 12/12/18 21:15 Glucose (Fingerstick) 53 mg/dL (70-99) 118 mg/dL (70-99) 53 mg/dL (70-99) 68 mg/dL (70-99) Test 12/12/18 22:27 12/13/18 01:04 12/13/18 01:26 12/13/18 02:40 Glucose (Fingerstick) 93 mg/dL (70-99) 63 mg/dL (70-99) 68 mg/dL (70-99) 125 mg/dL (70-99) Test 12/13/18 05:00 12/13/18 06:07 12/13/18 06:31 12/13/18 07:50 Sodium Level 139 mmol/L (136-145) Potassium Level 3.7 mmol/L (3.5-5.1) Chloride Level 102 mmol/L (98-107) Carbon Dioxide Level 29 mmol/L (21-32) Anion Gap 8 (6-14) Blood Urea Nitrogen 13 mg/dL (7-20) Creatinine 0.5 mg/dL (0.6-1.0) Estimated GFR (Cockcroft-Gault) 134.7 Glucose Level 61 mg/dL (70-99) Calcium Level 8.1 mg/dL (8.5-10.1) Triglycerides Level 99 mg/dL (0-150) Cholesterol Level 155 mg/dL (0-200) LDL Cholesterol, Calculated 79 mg/dL (0-100) VLDL Cholesterol, Calculated 20 mg/dL (0-40) Non-HDL Cholesterol Calculated 99 mg/dL (0-129) HDL Cholesterol 56 mg/dL (40-60) Cholesterol/HDL Ratio 2.8 Thyroid Stimulating Hormone (TSH) 0.767 uIU/mL (0.358-3.74) Glucose (Fingerstick) 36 mg/dL (70-99) 119 mg/dL (70-99) 82 mg/dL (70-99) Meds Current Medications Atorvastatin Calcium (Lipitor) 40 mg QHS PO Last administered on 12/12/18at 20:05 ; Start 12/12/18 at 21:00 Docusate Sodium (Colace) 100 mg BID PO Last administered on 12/13/18at 08:43; Start 12/12/18 at 11:00 Lisinopril (Prinivil) 40 mg DAILY PO Last administered on 12/13/18at 08:42; Start 12/12/18 at 11:00 Pregabalin (Lyrica) 75 mg BID PO Last administered on 12/13/18at 08:43; Start 12/12/18 at 11:00 Zolpidem Tartrate (Ambien) 5 mg 1X ONCE PO Last administered on 12/12/18at 22:26 ; Start 12/12/18 at 22:30; Stop 12/12/18 at 22:31; Status DC Zolpidem Tartrate (Ambien) 5 mg HS PO ; Start 12/13/18 at 21:00 Assessment Assessment 1. Hypoglycemia. 2. The patient took more than her usual dose of insulin, Tresiba long-acting insulin normally takes 20, she took 80, and she developed hypoglycemia. 3. Type 2 diabetes, noncompliant. 4. Hypertension. 5. Hyperlipidemia. PLAN: At this time, the patient was given D50, given a good breakfast without improvement, her sugars are going down, and was admitted overnight for observation. Hold any insulin. Check fingersticks q.4h. patient was given IV D5W. Blood sugars are stable. Okay to discharge today. She will not take any extra doses of insulin. I advised her to keep a blood sugar diary and see Dr. Rausch in 3 days. Continue to see by 20 units subcutaneous daily, Ozempic 0.5 mg subcutaneous weekly and Humalog 10 units subcutaneous 3 times a day. Hold insulin if blood sugar less than 100. Plan Plan For more details regarding further plans, please refer to the orders. JASS MRATINI MD Dec 13, 2018 10:48
[2018-12-13 11:00] VITALS: BP 136/66
--- NOTE | 2018-12-13 11:33 | NUR ---
Reviewed discharge information with patient. IV d/c with no complications, all belongings present. Prescriptions provided, patient waiting on ride to arrive. No further questions for me at this time.
[2018-12-13] MEDS ORDERED: ZOLPIDEM 5 MG TABLET. PO SCH (21:00)
[2018-12-13 23:09] LABS: HEMOGLOBIN A1C 8.2 % (4.8-5.6)
--- NOTE | 2018-12-15 16:26 | PDOC ---
Provider Note Provider Note Discharge summary dictated.#[id number] TAN CARTER MD Dec 15, 2018 16:26
--- NOTE | 2018-12-15 23:00 | DS ---
DATE OF DISCHARGE: 12/13/2018 REASON FOR ADMISSION TO THE HOSPITAL: Hypoglycemia. The patient is a type 2 diabetic, takes insulin. CONSULTATIONS: None. PROCEDURES: None. HOSPITAL COURSE: The patient is a 43-year-old female. The patient is a type 2 diabetic, takes insulin, noncompliant and she has been eating more candy lately. She takes Tresiba 20 units in a day. Instead of taking 20 since she is eating more candy took 80 units of Tresiba and in the morning, she was hypoglycemic, blood sugar of 40, came to the Emergency Room and in spite of D50 and D5 did not improve, was admitted to the hospital overnight. The patient's blood sugar was fluctuating up and down and after 24 hours has stabilized and sugars were running good and she was discharged. Her hemoglobin A1c was 8.2. FINAL DIAGNOSES: 1. The patient took more than expected dose of insulin the long-acting Tresiba. Instead of taking 20, took 80. 2. Hypoglycemia. 3. Type 2 diabetes. 4. Noncompliance. 5. Hypertension. 6. Obesity. 7. Hyperlipidemia. DISPOSITION: Home. See [facility] for discharge medication. The patient was recommended not to take more than she is prescribed and given a new glucometer and follow with the PCP. TAN CARTER MD DR: SANTHOSH/arash JOB#: [id number] / [id number]
== END 2018-12-13 11:50 | disposition home or self-care (01) ==
LOC: ER 05:22 → 6 SOUTH 08:45
PROVIDERS: ADMIT Internal Medicine; ATTEND Internal Medicine
DX: E10.649 Type 1 diabetes mellitus with hypoglycemia without coma (principal); I10 Essential (primary) hypertension; E78.5 Hyperlipidemia, unspecified; E66.9 Obesity, unspecified; Z85.41 Personal history of malignant neoplasm of cervix uteri; Z90.710 Acquired absence of both cervix and uterus; Z82.49 Family history of ischemic heart disease and other diseases of the circulatory system; Z83.3 Family history of diabetes mellitus; J44.9 Chronic obstructive pulmonary disease, unspecified; Z98.891 History of uterine scar from previous surgery; F17.210 Nicotine dependence, cigarettes, uncomplicated; Z79.4 Long term (current) use of insulin
CPT/HCPCS: 36415; 71045; 80048; 80053; 80061; 81001; 82553; 82962; 83036; 83880; 84443; 84484; 85007; 85025; 85610; 85730; 93005; 96361; 96374; 96376; 99284; G0378; G0379; J7042

== ENCOUNTER 2019-01-11 02:56 | Emergency (ER) | payer BC ==
[~2019-01-11] VITALS: Ht 162.6 cm; Wt 117.9 kg
[~2019-01-11 02:56] MED LIST changes: +INSU100I30 SQ
[2019-01-11 03:02] VITALS: BP 150/65
[2019-01-11] MEDS ORDERED: HYDR-3164 PO (03:18)
[2019-01-11] MEDS ORDERED: CEPH500T PO (03:18)
[2019-01-11] MEDS ORDERED: LIDOCAINE 1% Multi-Dose 20 ML VIAL. ONE (03:18)
[2019-01-11] MEDS ORDERED: SULF1TAB24 PO (03:18)
[2019-01-11] MEDS ORDERED: LIDOCAINE 1%/EPI 1:100,000 20 ML VIAL. INJ ONE (03:30)
[2019-01-11] MEDS ORDERED: MORPHINE SULFATE 4 MG/ML VIAL. IM ONE (03:30)
--- NOTE | 2019-01-11 04:26 | PHYS DOC ---
Past Medical History Past Medical History: COPD, Diabetes-Type I, Hypertension Additional Past Medical Histor: tachycardia, cellulitis Past Surgical History: , Hysterectomy Additional Past Surgical Histo: cervical cancer, R hand Alcohol Use: None Drug Use: None Adult General Chief Complaint Chief Complaint: ABSCESS HPI HPI Patient is a 43 year old f with cc of abscess. has buttock pain. right side. felt warm but no definite fever. bg running around 200 or so no problems with bowel movements. Current Medications Current Medications Current Medications Medications (Trade) Dose Ordered Sig/Xiao Start Time Stop Time Status Last Admin Dose Admin Lidocaine HCl (Lidocaine 1% 20ml Vial) 20 ml STK-MED ONCE 01/11/19 03:18 01/11/19 03:19 DC Lidocaine/ Epinephrine (LIDOCAINE 1%-EPI 1:100,000 Multi-Dose) 20 ml 1X ONCE 01/11/19 03:30 01/11/19 03:31 DC 01/11/19 03:27 20 ML Morphine Sulfate (Morphine Sulfate) 6 mg 1X ONCE 01/11/19 03:30 01/11/19 03:31 DC 01/11/19 03:28 6 MG Allergies Allergies Allergies Coded Allergies Type Severity Reaction Last Updated Verified No Known Drug Allergies 03/31/18 No Physical Exam Physical Exam Constitutional: Well developed, well nourished, no acute distress, non-toxic appearance. [] HENT: Normocephalic, atraumatic, bilateral external ears normal, oropharynx moist, no oral exudates, nose normal. [] Eyes: PERRLA, EOMI, conjunctiva normal, no discharge. [] Neck: Normal range of motion, no tenderness, supple, no stridor. [] Abdomen: Bowel sounds normal, soft, no tenderness, no masses, no pulsatile masses. [] Skin: 4 by 6 cm area of erythema induration and fluctuance right buttock surr ounding cellulitis, it is several centimeters away from the anus. Extremities: No tenderness, no cyanosis, no clubbing, ROM intact, no edema. [] Neurologic: Alert and oriented X 3, normal motor function, normal sensory function, no focal deficits noted. [] Psychologic: Affect normal, judgement normal, mood normal. [] Current Patient Data Vital Signs Vital Signs Date Time Temp Pulse Resp B/P (MAP) Pulse Ox O2 Delivery O2 Flow Rate FiO2 01/11/19 03:28 16 98 01/11/19 03:02 98.6 128 150/65 (93) Room Air 98.6 Lab Values Laboratory Tests Test 01/11/19 03:17 Glucose (Fingerstick) 175 mg/dL (70-99) H EKG EKG [] Radiology/Procedures Radiology/Procedures [] Course & Med Decision Making Course & Med Decision Making Pertinent Labs and Imaging studies reviewed. (See chart for details) []heart rate slowly came down in the er, has hx of baseline hr around 100-110 based on previous chart review. pt is in pain. no fever in ed. clinically it appears subcutaneous not perianal or perirectal i and d: verbal consent, prepped and draped usual fashion, lido with epi for anesthesia 4 ml, 11 blade, 2 cm incision, large amount of pus expressed pt tolerated well. loculations explored, wound packed covered with gauze and advised wound check in two days. hr 115 on recheck Dragon Disclaimer Dragon Disclaimer This electronic medical record was generated, in whole or in part, using a voice recognition dictation system. Departure Departure Impression: Primary Impression: Abscess Disposition: HOME, SELF-CARE Condition: STABLE Referrals: EDELMIRA SÁNCHEZ (PCP) Patient Instructions: Abscess, [id number] Scripts Cephalexin (CEPHALEXIN) 500 Mg Tablet 1 TAB PO QID, #40 TAB Prov: GOPAL CAGLE MD 01/11/19 Sulfamethoxazole/Trimethoprim (BACTRIM DS TABLET) 1 Each Tablet 1 TAB PO BID, #20 TAB Prov: GOPAL CAGLE MD 01/11/19 Hydrocodone/Apap 5-325 (NORCO 5-325 TABLET) 1 Each Tablet 1-2 EACH PO PRN Q6HRS PRN for PAIN, #15 as needed for pain Prov: GOPAL CAGLE MD 01/11/19 GOPAL CAGLE MD January 11, 2019 04:26
== END 2019-01-11 04:19 | disposition home or self-care (01) ==
LOC: ER 02:56
DX: L02.31 Cutaneous abscess of buttock (principal); J44.9 Chronic obstructive pulmonary disease, unspecified; E10.9 Type 1 diabetes mellitus without complications; I10 Essential (primary) hypertension; Z98.890 Other specified postprocedural states; Z90.710 Acquired absence of both cervix and uterus
CPT/HCPCS: 10060; 82962; 96372; 99283; J2270; J3490

== ENCOUNTER 2019-04-03 17:06 | Emergency (ER) | payer BC ==
[~2019-04-03] VITALS: Ht 162.6 cm; Wt 117.9 kg
[~2019-04-03 17:06] MED LIST changes: +CEPH500T PO
[2019-04-03 17:53] VITALS: BP 161/84
[2019-04-03] MEDS ORDERED: ACETAMINOPHEN 325 MG TABLET. PO ONE (18:45)
[2019-04-03] MEDS ORDERED: LIDOCAINE (700MG/PATCH) PATCH. TD ONE (18:45)
[2019-04-03] MEDS ORDERED: ORPH100T PO (19:27)
--- NOTE | 2019-04-03 19:27 | PHYS DOC ---
Past Medical History Past Medical History: COPD, Diabetes-Type I, Hypertension Additional Past Medical Histor: tachycardia, cellulitis (RONNY RIGGINS APRN) Past Surgical History: , Hysterectomy Additional Past Surgical Histo: cervical cancer, R hand (RONNY RIGGINS APRN) Alcohol Use: None Drug Use: None (RONNY RIGGINS APRN) Adult General Chief Complaint Chief Complaint: BACK PAIN OR INJURY HPI HPI 44 y/o female presents to with c/o rt side low back pain radiating down her posterior leg intermittent for past couple of months with increased pain in past 3 days. She denies any falls or injury. Patient states she has had this type of pain in her left lower back as well intermittently as well. She reports with walking/lifting of rt leg her pain increases. She denies numbness/tingling. She denies any leg swelling, shortness of air, Pain or cramps, or skin discoloratio n. She reports she took ibuprofen 800 mg tablets 3 today with minimal improvement in pain. She denies she has had inability to ambulate. She reports she has an appointment with her doctor on Wednesday as she has arthritis and bilateral knee pain. She reports as pain has increased she couldn't wait for that appointment so came to the ER for eval. (RONNY RIGGINS APRN) Review of Systems Review of Systems Constitutional: Denies fever or chills [] Respiratory: Denies cough or shortness of breath [] Cardiovascular: Denies CP/palpitations GI: Denies abdominal pain, nausea, vomiting, bloody stools or diarrhea [] : Denies urinary sxs Musculoskeletal: Reports rt lower back radiating down rt posterior/upper leg- denies swelling/skin discoloration Integument: Denies rash or skin lesions [] Neurologic: Denies focal weakness or sensory changes [] All other systems were reviewed and found to be within normal limits, except as documented in this note. (RONNY RIGGINS APRN) Current Medications Current Medications Current Medications Medications (Trade) Dose Ordered Sig/Xiao Start Time Stop Time Status Last Admin Dose Admin Acetaminophen (Tylenol) 650 mg 1X ONCE 04/03/19 18:45 04/03/19 18:46 DC 04/03/19 18:57 650 MG Lidocaine (Lidoderm) 1 patch 1X ONCE 04/03/19 18:45 04/03/19 18:46 DC 04/03/19 18:57 1 PATCH (OLY SANCHEZ DO) Allergies Allergies Allergies Coded Allergies Type Severity Reaction Last Updated Verified No Known Drug Allergies 03/31/18 No (OLY SANCHEZ DO) Physical Exam Physical Exam Constitutional: Well developed, well nourished, no acute distress, non-toxic appearance. [] HENT: Normocephalic, atraumatic, oropharynx moist, nose normal. [] Eyes: Pupils equal, conjunctiva normal, no discharge. [] Neck: Normal range of motion, no tenderness, supple, no stridor. [] Cardiovascular: Heart rate regular rhythm, no murmur [] Lungs & Thorax: Bilateral breath sounds clear to auscultation- resp. equal/nonlabored Abdomen: Bowel sounds normal, soft, no tenderness Skin: Warm, dry, no erythema, no rash. [] Back: No mid line spinal tenderness or palp. deformity. Tender rt lower back pain into mid buttock/rt posterior upper leg, no CVA tenderness. [] Extremities: No cyanosis, no clubbing, ROM intact, no edema. 2+ bilat. dorsalis pedis/posterior tibial Neurologic: Alert and oriented X 3, normal motor function, normal sensory function, no focal deficits noted. [] Psychologic: Affect normal, judgement normal, mood normal. [] (RONNY RIGGINS APRN) Current Patient Data Vital Signs Vital Signs Date Time Temp Pulse Resp B/P (MAP) Pulse Ox O2 Delivery O2 Flow Rate FiO2 04/03/19 17:53 98.2 108 20 161/84 (109) 97 Room Air 98.2 (OLY SANCHEZ DO) EKG EKG [] (RONNY RIGGINS APRN) Radiology/Procedures Radiology/Procedures [] (RONNY RIGGINS APRN) Course & Med Decision Making Course & Med Decision Making Pt was evaluated in the ER for complaints of right lower back pain radiating into her right upper posterior leg. She denied any type of injury or midline spinal tenderness. She denied saddle anesthesia or incontinence of urine/bowel. Patient drove herself to the ER so limitations on pain control. She was provided with Lidoderm patch and dose of Tylenol. Discussion had with patient as she is diabetic and so steroids will be avoided with treatment. Patient will be provided with prescription for Robaxin with education on the medication. She was advised on ice and heat compress as well as Epsom salt bath. Patient was PMS intact in bilateral lower extremities with steady unassisted gait. As an appointment on Wednesday so she was advised to keep that appointment for reevaluation and further care.Education provided on signs and symptoms to return to ER. Discharge instructions were discussed. Patient to follow-up with primary care physician if symptoms persist or with any concerns. (RONNY RIGGINS APRN) Dragon Disclaimer Dragon Disclaimer This electronic medical record was generated, in whole or in part, using a voice recognition dictation system. (RONNY RIGGINS APRN) Departure Departure Impression: Primary Impression: Back pain Additional Impression: Sciatica of right side Disposition: HOME, SELF-CARE Condition: STABLE Referrals: EDELMIRA SÁNCHEZ (PCP) Patient Instructions: Back Pain, Adult, Sciatica Additional Instructions: Warm shower or bath for additional pain relief. Tylenol and/or ibuprofen as needed for pain as directed on container. Avoid taking too much of either of these medications. You can use [id number] sports cream as directed on container as additional option for pain is not using prescribed Lidoderm patches. Ice and/or heat compress to affected area every 3-4 hours for 20-30 minutes at a time. If symptoms persist follow-up with your primary care physician for reevaluation and further care. Scripts Orphenadrine Citrate (ORPHENADRINE CITRATE) 100 Mg Tablet.er 1 TAB PO BID, #10 TAB 0 Refills No driving or drinking alcohol while taking this medication Prov: RONNY RIGGINS APRN 04/03/19 Attending Signature Attending Signature I have reviewed the PA/LAND LAW EXAMINER's note and plan of care. I was available for consultation as needed during the patient's visit in the emergency department. I agree with the clinical impression, plan, and disposition. (OLY SANCHEZ DO) Problem Qualifiers RONNY RIGGINS APRN Apr 03, 2019 19:27 OLY SANCHEZ DO Apr 06, 2019 18:06
== END 2019-04-03 19:32 | disposition home or self-care (01) ==
LOC: ER 17:06
DX: M54.41 Lumbago with sciatica, right side (principal); J44.9 Chronic obstructive pulmonary disease, unspecified; E10.9 Type 1 diabetes mellitus without complications; I10 Essential (primary) hypertension; Z98.890 Other specified postprocedural states; Z90.710 Acquired absence of both cervix and uterus
CPT/HCPCS: 99283

== ENCOUNTER 2019-04-15 11:30 | Emergency (ER) | payer BC ==
[~2019-04-15] VITALS: Ht 162.6 cm; Wt 122.5 kg
[~2019-04-15 11:30] MED LIST changes: +ORPH100T PO
[2019-04-15 11:59] VITALS: BP 159/85
--- NOTE | 2019-04-15 12:21 | PHYS DOC ---
Past Medical History Past Medical History: Diabetes-Type II, High Cholesterol, Hypertension Additional Past Medical Histor: tachycardia, cellulitis Past Surgical History: , Hysterectomy Additional Past Surgical Histo: cervical cancer, R hand Additional Information: 1/PPD Alcohol Use: Rarely Drug Use: None Adult General Chief Complaint Chief Complaint: LOWER BACK PAIN OR INJURY HPI HPI 44-year-old female presents to ER for complaints of ongoing pain associated with probable sciatica. Patient was evaluated in the ER 04/03/19 by this provider and presents today with same symptoms as she had during that ER visit. She denies any recent falls or injury. She denies swelling in extremities. She denies change in bowel pattern or urinary symptoms. She denies saddle anesthesia or incontinence. Patient reports she took ibuprofen earlier with minimal relief in symptoms. She denies inability to walk and states she did drive herself to the ER. Pain is in mid right lower back radiating into mid right buttock and right posterior upper leg. Review of Systems Review of Systems Constitutional: Denies fever or chills [] Respiratory: Denies cough or shortness of breath [] Cardiovascular: No additional information not addressed in HPI [] GI: Denies abdominal pain, nausea, vomiting, bloody stools or diarrhea. Denies saddle anesth. or incontinence of bowel/bladder : Denies dysuria or hematuria [] Musculoskeletal: Reports rt mid lower back pain into rt mid buttock/rt posterior upper leg Integument: Denies rash, swelling or skin lesions [] Neurologic: Denies headache, focal weakness or sensory changes [] All other systems were reviewed and found to be within normal limits, except as documented in this note. Current Medications Current Medications Current Medications Medications (Trade) Dose Ordered Sig/Xiao Start Time Stop Time Status Last Admin Dose Admin Lidocaine (Lidoderm) 1 patch 1X ONCE 04/15/19 12:30 04/15/19 12:31 DC Methylprednisolone Sodium Succinate (SOLU-Medrol 125MG VIAL) 62.5 mg 1X ONCE 04/15/19 13:00 04/15/19 13:00 DC Allergies Allergies Allergies Coded Allergies Type Severity Reaction Last Updated Verified No Known Drug Allergies 03/31/18 No Physical Exam Physical Exam Constitutional: Well developed, well nourished, no acute distress, non-toxic appearance. [] HENT: Normocephalic, atraumatic, oropharynx moist, nose normal. [] Eyes: Pupils equal, conjunctiva normal, no discharge. [] Neck: Normal range of motion, no tenderness, supple, no stridor. [] Cardiovascular: Heart rate regular Lungs & Thorax: Resp. equal/nonlabored Skin: Warm, dry, no erythema, no rash. [] Back: No tenderness mid line spine or palp. deformity. Tenderness rt lower back into rt buttock- no swelling/skin discoloration, no CVA tenderness. [] Extremities: No cyanosis, no clubbing, ROM intact, no edema. 2+ bilat. dorsalis pedis/posterior tibial. Tender on palp. mid upper posterior thigh. Calf size symmetric/nontender Neurologic: Alert and oriented X 3, normal motor function, normal sensory function, no focal deficits noted. [] Psychologic: Affect normal, judgement normal, mood normal. [] Current Patient Data Vital Signs Vital Signs Date Time Temp Pulse Resp B/P (MAP) Pulse Ox O2 Delivery O2 Flow Rate FiO2 04/15/19 11:59 98.1 114 19 159/85 (109) 96 Room Air 98.1 EKG EKG [] Radiology/Procedures Radiology/Procedures [] Course & Med Decision Making Course & Med Decision Making Patient was evaluated in the ER for complaints of ongoing pain associated with probable sciatica on right side. She denies any recent injury or falls. Patient was PMS intact in bilateral lower extremities denying any saddle anesthesia, urinary sxs or incontinence. Patient was provided with IM Solu-Medrol injection while in the ER and plan of care was discussed as patient was evaluated on 04/03/19 with same symptoms. Patient will be provided with Lidoderm patch prescription-she preferred not to have ordered Lidoderm patch applied while in the ER stating she had similar options at home she could use. Will provide prescription for Norflex with discharge instructions and patient is scheduled to see her primary care physician this week for reevaluation and further care. Patient had steady unassisted gait and had drove herself to the ER. Education provided on signs and symptoms to return to ER. Discharge instructions were discussed. Patient to follow-up with primary care physician if symptoms persist or with any concerns. Dragon Disclaimer Dragon Disclaimer This electronic medical record was generated, in whole or in part, using a voice recognition dictation system. Departure Departure Impression: Primary Impression: Sciatica of right side Additional Impression: Back pain Disposition: HOME, SELF-CARE Condition: STABLE Referrals: EDELMIRA SÁNCHEZ (PCP) Patient Instructions: Back Pain, Adult, Sciatica Additional Instructions: As discussed further pain medications will need to be obtained through your primary care physician. Keep your scheduled appointment for reevaluation and f urther care this week. Ice and/or heat compress to affected area every 3-4 hours for 20-30 minutes at a time. Epsom salt soaks. Sports creams such as icy hot to affected area if not wearing Lidoderm patches. Tylenol and/or ibuprofen as needed for pain as directed on container. Scripts Orphenadrine Citrate (ORPHENADRINE CITRATE) 100 Mg Tablet.er 1 TAB PO BID PRN for PAIN, #10 TAB 0 Refills No driving or drinking alcohol while taking this medication Prov: RONNY RIGGINS APRN 04/15/19 Problem Qualifiers RONNY RIGGINS APRN Apr 15, 2019 12:21
[2019-04-15] MEDS ORDERED: ORPH100T PO (12:29)
[2019-04-15] MEDS ORDERED: LIDOCAINE (700MG/PATCH) PATCH. TD ONE (12:30)
[2019-04-15] MEDS ORDERED: methylPREDNISolone SOD SUCC PF 125 MG/2 ML VIAL. IV ONE (13:00)
[2019-04-15] MEDS ORDERED: methylPREDNISolone SOD SUCC PF 125 MG/2 ML VIAL. IM ONE (13:00)
== END 2019-04-15 12:56 | disposition home or self-care (01) ==
LOC: ER 11:30
DX: M54.41 Lumbago with sciatica, right side (principal); E11.9 Type 2 diabetes mellitus without complications; E78.00 Pure hypercholesterolemia, unspecified; I10 Essential (primary) hypertension; F17.200 Nicotine dependence, unspecified, uncomplicated; Z90.710 Acquired absence of both cervix and uterus
CPT/HCPCS: 96374; 99284; J2930

== ENCOUNTER 2019-05-07 21:03 | Emergency (ER) | payer BC ==
[~2019-05-07] VITALS: Ht 162.6 cm; Wt 117.9 kg
[2019-05-07 21:15] VITALS: BP 131/76
--- NOTE | 2019-05-07 22:05 | PHYS DOC ---
Past Medical History Past Medical History: Diabetes-Type II, High Cholesterol, Hypertension Additional Past Medical Histor: tachycardia, cellulitis (CARY STAFFORD APRN) Past Surgical History: , Hysterectomy Additional Past Surgical Histo: cervical cancer, R hand (CARY STAFFORD APRN) Alcohol Use: Rarely Drug Use: None (CARY STAFFORD APRN) Adult General Chief Complaint Chief Complaint: LOWER EXT PAIN HPI HPI Patient is a 44 year old [female] who presents with [several week complaint of right hip sciatica pain. Patient reports she has seen her primary care for this, was given hydrocodone and some other medications, she thinks she may have been on steroids but she is not sure. States she has an appointment with pain management tomorrow morning for further care at this states she has tried to take ibuprofen and has not seemed to make much difference. Does state she has slipped in the mud today and think she may have aggravated her discomfort a little bit more, as she had tried to keep falling. States she is able to walk with normal, denies falling to the ground, states she just slid and thinks it aggravated her discomfort.] (CARY STAFFORD APRN) Review of Systems Review of Systems Constitutional: Denies fever or chills [] Eyes: Denies change in visual acuity, redness, or eye pain [] HENT: Denies nasal congestion or sore throat [] Respiratory: Denies cough or shortness of breath [] Cardiovascular: No additional information not addressed in HPI [] GI: Denies abdominal pain, nausea, vomiting, bloody stools or diarrhea [] : Denies dysuria or hematuria [] Musculoskeletal: Denies back pain or joint pain complains of right hip pain [] Integument: Denies rash or skin lesions [] Neurologic: Denies headache, focal weakness or sensory changes [] Endocrine: Denies polyuria or polydipsia [] All other systems were reviewed and found to be within normal limits, except as documented in this note. (CARY STAFFORD APRN) Current Medications Current Medications Current Medications Medications (Trade) Dose Ordered Sig/Xiao Start Time Stop Time Status Last Admin Dose Admin Methylprednisolone Acetate (DEPO-Medrol 80MG VIAL) 80 mg 1X ONCE 05/07/19 22:15 05/07/19 22:16 DC 05/07/19 22:22 80 MG (OLY SANCHEZ DO) Allergies Allergies Allergies Coded Allergies Type Severity Reaction Last Updated Verified No Known Drug Allergies 03/31/18 No (OLY SANCHEZ DO) Physical Exam Physical Exam Constitutional: Well developed, well nourished, no acute distress, non-toxic appearance. [] HENT: Normocephalic, atraumatic, bilateral external ears normal, oropharynx moist, no oral exudates, nose normal. [] Eyes: PERRLA, EOMI, conjunctiva normal, no discharge. [] Neck: Normal range of motion, no tenderness, supple, no stridor. [] Cardiovascular:Heart rate regular rhythm, no murmur [] Lungs & Thorax: Bilateral breath sounds clear to auscultation [] Abdomen: Bowel sounds normal, soft, no tenderness, no masses, no pulsatile masses. [] Skin: Warm, dry, no erythema, no rash. [] Back: No tenderness, no CVA tenderness. [] Extremities: No tenderness, no cyanosis, no clubbing, ROM intact, no edema. [] Neurologic: Alert and oriented X 3, normal motor function, normal sensory function, no focal deficits noted. [] Psychologic: Affect normal, judgement normal, mood normal. [] (CARY STAFFORD APRN) Current Patient Data Vital Signs Vital Signs Date Time Temp Pulse Resp B/P (MAP) Pulse Ox O2 Delivery O2 Flow Rate FiO2 05/07/19 21:15 97.8 118 17 131/76 (94) 96 Room Air 97.8 (OLY SANCHEZ DO) EKG EKG [] (CARY STAFFORD APRN) Radiology/Procedures Radiology/Procedures [] (CARY STAFFORD APRN) Course & Med Decision Making Course & Med Decision Making Pertinent Labs and Imaging studies reviewed. (See chart for details) [Discussed findings, discussed continued recommendation to follow-up with her automatic paint sprayer operator tomorrow. Discussed continued use of Tylenol ibuprofen as needed for pain, or her hydrocodone she has at home. We'll provide steroid injection here. Discussed steroids increased blood sugar, patient reports her blood sugars been very well-controlled since she is been on a new diabetes medication, states she does take her medications and check her blood sugar and has not had any problems with her blood sugar within the past couple weeks.] (CARY STAFFORD APRN) Dragon Disclaimer Dragon Disclaimer This electronic medical record was generated, in whole or in part, using a voice recognition dictation system. (CARY STAFFORD APRN) Departure Departure Impression: Primary Impression: Sciatica of right side Disposition: HOME, SELF-CARE Condition: GOOD Referrals: EDELMIRA SÁNCHEZ (PCP) Patient Instructions: Sciatica, [id number] Additional Instructions: Keep her appointment tomorrow morning with her automatic paint sprayer operator. Take Tylenol ibuprofen or your hydrocodone at home for your discomfort. Follow-up with her primary care provider as needed. You may want to put some ice on your hip if he continues to causing discomfort tonight. Attending Signature Attending Signature I have reviewed the PA/RESIDENCY PROGRAM COORDINATOR's note and plan of care. I was available for consultation as needed during the patient's visit in the emergency department. I agree with the clinical impression, plan, and disposition. (OLY SANCHEZ DO) CARY STAFFORD APRN May 07, 2019 22:05 OLY SANCHEZ DO May 08, 2019 21:34
[2019-05-07] MEDS ORDERED: methylPREDNISolone ACETATE 80 MG/ML VIAL. IM ONE (22:15)
== END 2019-05-07 22:23 | disposition home or self-care (01) ==
LOC: ER 21:03
DX: M54.31 Sciatica, right side (principal); M25.551 Pain in right hip; I10 Essential (primary) hypertension; E78.00 Pure hypercholesterolemia, unspecified; E11.9 Type 2 diabetes mellitus without complications; Z90.710 Acquired absence of both cervix and uterus
CPT/HCPCS: 96372; 99283; J1040

== ENCOUNTER 2019-07-22 20:31 | Emergency (ER) | payer BC ==
[~2019-07-22] VITALS: Ht 162.6 cm; Wt 117.9 kg
[2019-07-22] MEDS ORDERED: ALBUTEROL SULFATE 2.5 MG/3 ML NEBU. NEB ONE (22:00)
[2019-07-22 22:17] LABS: INFLUENZA A PATIENT NEGATIVE (NEGATIVE); INFLUENZA B PATIENT NEGATIVE (NEGATIVE)
[2019-07-22] MEDS ORDERED: BENZ100C PO (22:27)
[2019-07-22] MEDS ORDERED: AMOX1TAB61 PO (22:27)
--- NOTE | 2019-07-22 22:27 | PHYS DOC ---
Past Medical History Past Medical History: Diabetes-Type II, High Cholesterol, Hypertension, Other Additional Past Medical Histor: sleep apnea Past Surgical History: , Hysterectomy Additional Past Surgical Histo: cervical cancer, R hand Alcohol Use: Rarely Drug Use: None Adult General Chief Complaint Chief Complaint: FLU SYMPTOM HPI HPI Patient is a 44 year old female who presents to the emergency department with complaints of a cough, nasal congestion, body aches, and fatigue for the last 3 days. Today she states that she developed a fever. Patient denies any ear pain, sore throat, nausea, vomiting, diarrhea, abdominal pain, dysuria, hematuria, or increased urinary frequency. Patient states that she has a history of COPD and has been using her medications as prescribed. She is concerned that maybe she has influenza because of the fever that she developed today. Patient states that she took some ibuprofen at home for relief of her fever prior to arrival. Currently she rates her pain 8 out of 10 on pain scale, she denies any allevi ating or exacerbating factors. All other ROS is neg unless otherwise noted in HPI. Review of Systems Review of Systems See Above Current Medications Current Medications Current Medications Medications (Trade) Dose Ordered Sig/Xiao Start Time Stop Time Status Last Admin Dose Admin Acetaminophen (Tylenol) 1,000 mg 1X ONCE 07/22/19 23:00 07/22/19 23:01 DC 07/22/19 22:49 1,000 MG Albuterol Sulfate (Ventolin Neb Soln) 2.5 mg 1X ONCE 07/22/19 22:00 07/22/19 22:01 DC 07/22/19 22:31 2.5 MG Allergies Allergies Allergies Coded Allergies Type Severity Reaction Last Updated Verified No Known Drug Allergies 03/31/18 No Physical Exam Physical Exam See Above Constitutional: Well developed, well nourished, no acute distress, obese, ill appearance HENT: Normocephalic, atraumatic, bilateral external ears normal, oropharynx moist, no oral exudates, nose normal. [] Eyes: PERRLA, EOMI, conjunctiva normal, no discharge. [] Neck: Normal range of motion, no tenderness, supple, no stridor. [] Cardiovascular:Heart rate regular rhythm, no murmur [] Lungs & Thorax: Bilateral breath sounds clear to auscultation in upper lobes, coarse and diminished in bilateral posterior lobes [] Skin: Flushed, hot, dry, no rash. [] Back: No tenderness Extremities: No cyanosis, no clubbing, ROM intact, no edema. [] Neurologic: Alert and oriented X 3, no focal deficits noted. [] Psychologic: Affect normal, judgement normal, mood normal. [] Current Patient Data Vital Signs Vital Signs Date Time Temp Pulse Resp B/P (MAP) Pulse Ox O2 Delivery O2 Flow Rate FiO2 07/22/19 22:33 97 Room Air 07/22/19 22:30 100.3 120 18 143/83 (103) 100.3 Lab Values Laboratory Tests Test 07/22/19 21:45 Influenza Type A Antigen Negative (NEGATIVE) Influenza Type B Antigen Negative (NEGATIVE) EKG EKG [] Radiology/Procedures Radiology/Procedures CXR RLL infiltrate read by Dr. Mckeon[] PROCEDURE: CHEST PA & LATERAL EXAM: PA and Lateral Views of the Chest DATE: 07/22/2019 9:26 PM INDICATION: COMPARISON: No Prior FINDINGS: The heart is not enlarged. Mediastinal and hilar contours are normal. Mild patchy right medial lung base airspace opacities may represent atelectasis or developing consolidation. No pleural effusion or pneumothorax. IMPRESSION: 1. Mild patchy right medial lung base airspace opacities may represent atelectasis or developing consolidation. Course & Med Decision Making Course & Med Decision Making Pertinent Labs and Imaging studies reviewed. (See chart for details) [] Dragon Disclaimer Dragon Disclaimer This electronic medical record was generated, in whole or in part, using a voice recognition dictation system. Departure Departure Impression: Primary Impression: Pneumonia Disposition: HOME, SELF-CARE Condition: STABLE Referrals: EDELMIRA SÁNCHEZ (PCP) Patient Instructions: Pneumonia, Adult, [id number] Additional Instructions: Fill prescription(s) and use as directed. Recommend use of a Cool mist humidifier in room at bedtime. Alternate Tylenol or ibuprofen as needed for pain/fever. Increase clear fluids. Avoid airway triggers such as smoke, fragrance, dust, and pollen. Follow-up with your primary care doctor if symptoms persist, return to the ER if symptoms worsen. Scripts Benzonatate (TESSALON PERLE) 100 Mg Capsule 1 CAP PO TID PRN for COUGH for 7 Days, #21 CAP 0 Refills Prov: REYNA PRINGLE TARIFF COMPILER 07/22/19 Amoxicillin/Potassium Clav (AUGMENTIN 875-125 TABLET) 1 Each Tablet 1 TAB PO BID for 10 Days, #20 TAB 0 Refills Prov: REYNA PRINGLE APRN 07/22/19 Problem Qualifiers Primary Impression: Pneumonia Pneumonia type: due to unspecified organism Laterality: right Lung location: lower lobe of lung Qualified Codes: J18.9 - Pneumonia, unspecified organism REYNA PRINGLE APRN Jul 22, 2019 22:27
[2019-07-22 22:30] VITALS: BP 143/83
--- NOTE | 2019-07-22 22:33 | RAD ---
EXAM: PA and Lateral Views of the Chest DATE: 07/22/2019 9:26 PM INDICATION: COMPARISON: No Prior FINDINGS: The heart is not enlarged. Mediastinal and hilar contours are normal. Mild patchy right medial lung base airspace opacities may represent atelectasis or developing consolidation. No pleural effusion or pneumothorax. IMPRESSION: 1. Mild patchy right medial lung base airspace opacities may represent atelectasis or developing consolidation. Electronically signed by: Jay Petersen MD (07/22/2019 10:30 PM) [facility]
[2019-07-22] MEDS ORDERED: ACETAMINOPHEN 500 MG TABLET PO ONE (23:00)
== END 2019-07-22 22:53 | disposition home or self-care (01) ==
LOC: ER 20:31
DX: J18.9 Pneumonia, unspecified organism (principal); J44.9 Chronic obstructive pulmonary disease, unspecified; E11.9 Type 2 diabetes mellitus without complications; E78.00 Pure hypercholesterolemia, unspecified; I10 Essential (primary) hypertension
CPT/HCPCS: 71046; 87804; 94640; 99285; J7613

== ENCOUNTER 2019-08-12 17:55 | Inpatient (IN) | payer BC ==
[~2019-08-12] VITALS: Ht 162.6 cm; Wt 115.7 kg
[~2019-08-12 17:55] MED LIST changes: +BENZ100C PO
[2019-08-12] MEDS ORDERED: IV NORMAL SALINE 1000ML BAG 1,000 ML IV ONE ×2 (18:30→20:30)
--- NOTE | 2019-08-12 18:33 | PHYS DOC ---
Past Medical History Past Medical History: Diabetes-Type II, High Cholesterol, Hypertension, Other Additional Past Medical Histor: sleep apnea Past Surgical History: , Hysterectomy Additional Past Surgical Histo: cervical cancer, R hand Alcohol Use: Rarely Drug Use: None Adult General Chief Complaint Chief Complaint: ACCIDENTAL INGESTION HPI HPI 44-year-old female presents to the emergency department via EMS after ingesting to be messed relaxers accidentally. Patient was training a regular low back pain. She states she's taken the same lump for without complications. Apparently patient was walking to the kitchen at home could not control her legs and subsequently fell. Her called EMS. Patient is arousable in the emergency Department however is unable to form a full conversation. She is unable to provide full details of exactly what she took, her is at the bedside and states he does not know any more information than what EMS provided. Review of Systems Review of Systems Unable to obtain ROS 2/2 patient's altered status Current Medications Current Medications Current Medications Medications (Trade) Dose Ordered Sig/Xiao Start Time Stop Time Status Last Admin Dose Admin Labetalol HCl (Normodyne Iv Push) 10 mg 1X ONCE 08/12/19 19:30 08/12/19 19:31 DC 08/12/19 19:35 10 MG Sodium Chloride 1,000 ml @ 1,000 mls/hr 1X ONCE 08/12/19 18:30 08/12/19 19:29 DC 08/12/19 19:07 1,000 MLS/HR Allergies Allergies Allergies Coded Allergies Type Severity Reaction Last Updated Verified No Known Drug Allergies 03/31/18 No Physical Exam Physical Exam Constitutional: sleeping on exam, difficult to arouse HENT: Normocephalic, atraumatic, bilateral external ears normal, oropharynx m oist, no oral exudates, nose normal. [] Eyes: PERRLA, EOMI, conjunctiva normal, no discharge. [] Cardiovascular: tachycardia Lungs & Thorax: Bilateral breath sounds clear to auscultation [] Abdomen: Bowel sounds normal, soft, no tenderness, no masses, no pulsatile masses. [] Skin: Warm, dry, no erythema, no rash. [] Back: No tenderness, no CVA tenderness. [] Extremities: No tenderness, no edema. [] Neurologic: Alert and oriented X 1, difficult to arouse patient, unable to hold conversation. [] Psychologic: Affect normal, judgement normal, mood normal. [] Current Patient Data Vital Signs Vital Signs Date Time Temp Pulse Resp B/P (MAP) Pulse Ox O2 Delivery O2 Flow Rate FiO2 08/12/19 19:47 100 187/109 (135) 98 Room Air 08/12/19 18:00 97.6 16 97.6 Lab Values Laboratory Tests Test 08/12/19 19:00 08/12/19 19:26 08/12/19 19:29 08/12/19 19:30 Sodium Level 137 mmol/L (136-145) Potassium Level 3.4 mmol/L (3.5-5.1) L Chloride Level 98 mmol/L (98-107) Carbon Dioxide Level 27 mmol/L (21-32) Anion Gap 12 (6-14) Blood Urea Nitrogen 17 mg/dL (7-20) Creatinine 0.7 mg/dL (0.6-1.0) Estimated GFR (Cockcroft-Gault) 90.9 BUN/Creatinine Ratio 24 (6-20) H Glucose Level 265 mg/dL (70-99) H Calcium Level 9.1 mg/dL (8.5-10.1) Total Bilirubin 0.4 mg/dL (0.2-1.0) Aspartate Amino Transferase (AST) 19 U/L (15-37) Alanine Aminotransferase (ALT) 25 U/L (14-59) Alkaline Phosphatase 118 U/L (46-116) H Total Protein 7.7 g/dL (6.4-8.2) Albumin 3.4 g/dL (3.4-5.0) Albumin/Globulin Ratio 0.8 (1.0-1.7) L Salicylates Level 3.2 mg/dL (2.8-20.0) Salicylate Last Dose Date Unk Salicylate Last Dose Time Unk Acetaminophen Level < 2 mcg/ml (10-30) L Acetaminophen Last Dose Date Unk Acetaminophen Last Dose Time Unk Ethyl Alcohol Level < 10 mg/dL (0-10) Urine Collection Type U cath Urine Color Yellow Urine Clarity Clear Urine pH 6.0 Urine Specific Stow >=1.030 Urine Protein Negative mg/dL (NEG-TRACE) Urine Glucose (UA) 500 mg/dL (NEG) Urine Ketones (Stick) 40 mg/dL (NEG) Urine Blood Negative (NEG) Urine Nitrite Negative (NEG) Urine Bilirubin Negative (NEG) Urine Urobilinogen Dipstick 0.2 mg/dL (0.2 mg/dL) Urine Leukocyte Esterase Negative (NEG) Urine RBC 3-5 /HPF (0-2) Urine WBC 1-4 /HPF (0-4) Urine Squamous Epithelial Cells Occ /LPF Urine Bacteria Few /HPF (0-FEW) Urine Hyaline Casts Moderate /HPF Urine Mucus Marked /LPF Urine Opiates Screen Neg (NEG) Urine Methadone Screen Neg (NEG) Urine Barbiturates Neg (NEG) Urine Phencyclidine Screen Neg (NEG) Urine Amphetamine/Methamphetamine Neg (NEG) Urine Benzodiazepines Screen Neg (NEG) Urine Cocaine Screen Neg (NEG) Urine Cannabinoids Screen Neg (NEG) Urine Ethyl Alcohol Neg (NEG) POC Urine HCG, Qualitative Hcg negative (Negative) O2 Saturation 93 % (92-99) Arterial Blood pH 7.33 (7.35-7.45) L Arterial Blood pCO2 at Patient Temp 52 mmHg (35-46) H Arterial Blood pO2 at Patient Temp 74 mmHg (75-108) L Arterial Blood HCO3 27 mmol/L (21-28) Arterial Blood Base Excess 0 mmol/L (-3-3) Test 08/12/19 20:00 White Blood Count 7.5 x10^3/uL (4.0-11.0) Red Blood Count 4.01 x10^6/uL (3.50-5.40) Hemoglobin 12.3 g/dL (12.0-15.5) Hematocrit 35.7 % (36.0-47.0) L Mean Corpuscular Volume 89 fL (79-100) Mean Corpuscular Hemoglobin 31 pg (25-35) Mean Corpuscular Hemoglobin Concent 34 g/dL (31-37) Red Cell Distribution Width 12.8 % (11.5-14.5) Platelet Count 319 x10^3/uL (140-400) Neutrophils (%) (Auto) 75 % (31-73) H Lymphocytes (%) (Auto) 14 % (24-48) L Monocytes (%) (Auto) 11 % (0-9) H Eosinophils (%) (Auto) 1 % (0-3) Basophils (%) (Auto) 0 % (0-3) Neutrophils # (Auto) 5.6 x10^3/uL (1.8-7.7) Lymphocytes # (Auto) 1.0 x10^3/uL (1.0-4.8) Monocytes # (Auto) 0.8 x10^3/uL (0.0-1.1) Eosinophils # (Auto) 0.1 x10^3/uL (0.0-0.7) Basophils # (Auto) 0.0 x10^3/uL (0.0-0.2) Laboratory Tests 08/12/19 20:00 Laboratory Tests 08/12/19 19:00 EKG EKG [] Radiology/Procedures Radiology/Procedures [] Course & Med Decision Making Course & Med Decision Making Pertinent Labs and Imaging studies reviewed. (See chart for details) []44-year-old female presents to the emergency department via EMS after ingesting to be messed relaxers accidentally. Patient was training a regular low back pain. She states she's taken the same lump for without complications. Apparently patient was walking to the kitchen at home could not control her legs and subsequently fell. Her called EMS. Patient is arousable in the emergency Department however is unable to form a full conversation. She is unable to provide full details of exactly what she took, her is at the bedside and states he does not know any more information than what EMS provided. Further discussion reveals patient took muscle relaxers likely cyclobenzaprine 10 mg. After further discussion with poison control, half-life of psychologic pain 18 hours. Patient will need at least 10-12 hours of observation per poison control. UDS is unremarkable, laboratory values are unremarkable. EKG reveals sinus tachycardia no evidence of ST elevation appreciated. Discussed admit with Hospitalist PIERRE reviewed - pH 7.33, pCO2 50 Upon further exam, found fentanyl patch of which was removed UDS without opiates on board Dragon Disclaimer Dragon Disclaimer This electronic medical record was generated, in whole or in part, using a voice recognition dictation system. Departure Departure Impression: Primary Impression: Drug ingestion, accidental Additional Impressions: Altered mental status Hypokalemia Disposition: ADMITTED INPATIENT Admitting Physician: CLARENCE Condition: STABLE Referrals: EDELMIRA SÁNCHEZ (PCP) Critical Care Time Critical care time was 40 minutes exclusive of procedures. Problem Qualifiers Primary Impression: Drug ingestion, accidental Encounter type: initial encounter Qualified Codes: T50.901A - Poisoning by unspecified drugs, medicaments and biological substances, accidental (unintentional), initial encounter Additional Impressions: Altered mental status Altered mental status type: disorientation Qualified Codes: R41.0 - Disorientation, unspecified CAMDEN SANCHEZ MD Aug 12, 2019 18:33
[2019-08-12 19:19] LABS: CALCIUM 9.1 mg/dL (8.5-10.1); CREATININE 0.7 mg/dL (0.6-1.0); GFR 90.9; POTASSIUM 3.4 mmol/L (3.5-5.1)
[2019-08-12 19:23] LABS: ACETAMIN < 2 mcg/ml (10-30); ETHANOL < 10 mg/dL (0-10); SALIC 3.2 mg/dL (2.8-20.0)
[2019-08-12 19:25] LABS: ALBUMIN 3.4 g/dL (3.4-5.0); ALBUMIN/GLOBULIN RATIO 0.8 (1.0-1.7); TOTAL BILIRUBIN 0.4 mg/dL (0.2-1.0); TOTAL PROTEIN 7.7 g/dL (6.4-8.2)
[2019-08-12] MEDS ORDERED: LABETALOL 20 MG/4 ML DISP.SYRIN. IVP ONE (19:30)
[2019-08-12 19:34] LABS: BASE EXCESS ABG 0 mmol/L (-3-3); HCO3 ABG 27 mmol/L (21-28); PCO2 ABG 52 mmHg (35-46); PO2 ABG 74 mmHg (75-108); SAT O2 ABG 93 % (92-99)
[2019-08-12 19:38] LABS: BILIRUBIN,URINE NEGATIVE (NEG); CLARITY,URINE CLEAR; COLOR,URINE YELLOW; NITRITE,URINE NEGATIVE (NEG); PROTEIN,URINE NEGATIVE (NEG-TRACE); UROBILINOGEN,URINE 0.2 mg/dL (0.2 mg/dL)
[2019-08-12 19:47] LABS: BARBITURATES NEG (NEG); BENZODIAZEPINES NEG (NEG); CANNABINOIDS NEG (NEG); COCAINE NEG (NEG); METHADONE NEG (NEG); OPIATES NEG (NEG); PHENCYCLIDINE NEG (NEG)
[2019-08-12 19:48] LABS: AMPHETAMINE/METHAMPHETAMINE NEG (NEG)
[2019-08-12 19:58] LABS: BACTERIA,URINE FEW /HPF (0-FEW); HYALINE CASTS, URINE MODERATE /HPF; SQUAMOUS EPITHELIAL CELL,UR OCC /LPF
[2019-08-12 20:13] LABS: BASO % 0 % (0-3); EOS # 0.1 x10^3/uL (0.0-0.7); EOS % 1 % (0-3); HEMATOCRIT 35.7 % (36.0-47.0); HEMOGLOBIN 12.3 g/dL (12.0-15.5); LYMPH % 14 % (24-48); MEAN CORPUSCULAR HEMOGLOBIN 31 pg (25-35); MEAN CORPUSCULAR HGB CONC 34 g/dL (31-37); MEAN CORPUSCULAR VOLUME 89 fL (79-100); MONO # 0.8 x10^3/uL (0.0-1.1); MONO % 11 % (0-9); NEUT # 5.6 x10^3/uL (1.8-7.7); NEUT % 75 % (31-73); PLATELET COUNT 319 x10^3/uL (140-400); RED BLOOD COUNT 4.01 x10^6/uL (3.50-5.40); RED CELL DISTRIBUTION WIDTH 12.8 % (11.5-14.5); WHITE BLOOD COUNT 7.5 x10^3/uL (4.0-11.0)
[2019-08-12] MEDS ORDERED: ONDANSETRON PF 4 MG/2 ML VIAL. IV PRN (20:15)
[2019-08-12] MEDS ORDERED: NALOXONE 0.4 MG/ML VIAL. ONE (20:36)
--- NOTE | 2019-08-12 20:36 | RAD ---
CT HEAD WO CONTRAST Date: 08/12/2019 8:05 PM Clinical Indication: Altered mental status, medication ingestion Comparison: None. Technique: 5 mm axial tomographic images were obtained of the head without contrast. These were viewed on brain and bone windows. One or more of the following dose reduction techniques were utilized: Automated exposure control (AEC), Adjustment of mA and/or kV according to patient size, Use of iterative reconstruction technique such as ASiR, CT scan done according to ALARA and image gently/image wisely Findings: The brain parenchyma is normal in attenuation. No intra- or extra-axial mass or fluid collection. No acute hemorrhage. The ventricles are normal in size, shape, and morphology. The vasquez-white matter junction is normal. The subarachnoid cisterns are patent. Secretions in the left maxillary sinus. The visualized portions of the orbits and globes are normal. The mastoid air cells are clear. The payroll and benefits coordinator topogram shows no lytic lesion or fracture. Impression: No acute intracranial process. Electronically signed by: Gurwinder Corbett MD (08/12/2019 8:33 PM) [facility]
[2019-08-12] MEDS ORDERED: NALOXONE 0.4 MG/ML VIAL. IV ONE (20:45)
[2019-08-12 23:47] VITALS: BP 137/79
[2019-08-13 03:25] VITALS: BP 174/85
[2019-08-13 05:24] LABS: BASO % 0 % (0-3); EOS # 0.1 x10^3/uL (0.0-0.7); EOS % 1 % (0-3); HEMATOCRIT 37.1 % (36.0-47.0); HEMOGLOBIN 12.6 g/dL (12.0-15.5); LYMPH # 1.4 x10^3/uL (1.0-4.8); LYMPH % 24 % (24-48); MEAN CORPUSCULAR HEMOGLOBIN 30 pg (25-35); MEAN CORPUSCULAR HGB CONC 34 g/dL (31-37); MEAN CORPUSCULAR VOLUME 89 fL (79-100); MONO # 0.6 x10^3/uL (0.0-1.1); MONO % 10 % (0-9); NEUT # 3.8 x10^3/uL (1.8-7.7); NEUT % 65 % (31-73); PLATELET COUNT 316 x10^3/uL (140-400); RED BLOOD COUNT 4.15 x10^6/uL (3.50-5.40); RED CELL DISTRIBUTION WIDTH 13.4 % (11.5-14.5); WHITE BLOOD COUNT 5.9 x10^3/uL (4.0-11.0)
[2019-08-13 05:39] LABS: ALBUMIN 2.9 g/dL (3.4-5.0); ALBUMIN/GLOBULIN RATIO 0.7 (1.0-1.7); CALCIUM 8.7 mg/dL (8.5-10.1); CREATININE 0.6 mg/dL (0.6-1.0); GFR 108.6; TOTAL BILIRUBIN 0.4 mg/dL (0.2-1.0)
--- NOTE | 2019-08-13 06:07 | NUR ---
Patient awoke upon entering room for rounds this morning at 0600. Patient able to hold conversation, speech a bit slurred. Patient able to state name, , situation and time. Patient following commands. No complaints at this time. Will continue to monitor
[2019-08-13 07:00] VITALS: BP 152/71
--- NOTE | 2019-08-13 08:38 | PDOC1 ---
History and Physical Date of Admission Date of Admission DATE: 08/13/19 TIME: 08:38 Identification/Chief Complaint Chief Complaint SEEN IN ER , 44-year-old female presents to the emergency department via EMS after ingesting to be messed relaxers accidentally. Patient was training a regular low back pain. She states she's taken the same lump for without complications. Apparently patient was walking to the kitchen at home could not control her legs and subsequently fell. Her called EMS. Patient WAS arousable in the emergency Department however is unable to form a full conversation. She WAS unable to provide full details of exactly what she took, NOW VERY ALERT , WANTS TO GO HOME Past Medical History Past Medical History Past Medical History Past Medical History Past Medical History: Diabetes-Type II, High Cholesterol, Hypertension, Other Additional Past Medical Histor: sleep apnea Past Surgical History: , Hysterectomy Additional Past Surgical Histo: cervical cancer, R hand Alcohol Use: Rarely Drug Use: None FHX OBESITY Family History Family History: High Cholestrol Social History Smoke: No ALCOHOL: none Drugs: None Current Problem List Problem List Problems Medical Problems: (1) Altered mental status Status: Acute (2) Hypokalemia Status: Acute Current Medications Current Medications Current Medications Sodium Chloride 1,000 ml @ 1,000 mls/hr 1X ONCE IV Last administered on 08/12/19at 19:07; Start 08/12/19 at 18:30; Stop 08/12/19 at 19:29; Status DC Labetalol HCl (Normodyne Iv Push) 10 mg 1X ONCE IVP Last administered on 08/12/19at 19:35; Start 08/12/19 at 19:30; Stop 08/12/19 at 19:31; Status DC Ondansetron HCl (Zofran) 4 mg PRN Q8HRS PRN IV NAUSEA/VOMITING; Start 08/12/19 at 20:15; Stop 08/13/19 at 20:14 Sodium Chloride 1,000 ml @ 75 mls/hr 1X ONCE IV Last administered on 08/12/19at 22:07; Start 08/12/19 at 20:30; Stop 08/13/19 at 09:49 Naloxone HCl (Narcan) 0.4 mg STK-MED ONCE .ROUTE ; Start 08/12/19 at 20:36; S top 08/12/19 at 20:36; Status DC Naloxone HCl (Narcan) 0.2 mg 1X ONCE IV Last administered on 08/12/19at 20:45; Start 08/12/19 at 20:45; Stop 08/12/19 at 20:46; Status DC Active Scripts Active Tessalon Perle (Benzonatate) 100 Mg Capsule 1 Cap PO TID PRN 7 Days Augmentin 875-125 Tablet (Amoxicillin/Potassium Clav) 1 Each Tablet 1 Tab PO BID 10 Days Orphenadrine Citrate 100 Mg Tablet.er 1 Tab PO BID PRN No driving or drinking alcohol while taking this medication Orphenadrine Citrate 100 Mg Tablet.er 1 Tab PO BID No driving or drinking alcohol while taking this medication Cephalexin 500 Mg Tablet 1 Tab PO QID Bactrim Ds Tablet (Sulfamethoxazole/Trimethoprim) 1 Each Tablet 1 Tab PO BID Harriman 5-325 Tablet (Acetaminophen/Hydrocodone Bitart) 1 Each Tablet 1-2 Each PO PRN Q6HRS PRN as needed for pain Tresiba Flextouch U-100 (Insulin Degludec) 100 Unit/1 Ml Insuln.pen 20 Unit SQ DAILY 30 Days Cyclobenzaprine Hcl 10 Mg Tablet 1 Tab PO TID PRN Ibuprofen 800 Mg Tablet 800 Mg PO PRN Q6HRS PRN Colace (Docusate Sodium) 100 Mg Capsule 100 Mg PO BID Reported Acetaminophen 500 Mg Tablet 500 Mg PO Novolog (Insulin Aspart) 100 Unit/1 Ml Cartridge 10 Unit SQ TIDAC Lipitor (Atorvastatin Calcium) 40 Mg Tablet 1 Tab PO QHS Lisinopril 40 Mg Tablet 40 Mg PO DAILY Metformin Hcl 1,000 Mg Tablet 1,000 Mg PO BIDWMEALS Lyrica (Pregabalin) 75 Mg Capsule 1 Cap PO BID Allergies Allergies: Coded Allergies: No Known Drug Allergies (Unverified , 03/31/18) ROS General: No: Chills, Night Sweats, Fatigue, Malaise, Appetite, Other PSYCHOLOGICAL ROS: No: Anxiety, Behavioral Disorder, Concentration difficultie, Decreased libido, Depression, Disorientation, Hallucinations, Hostility, Irritablity, Memory difficulties, Mood Swings, Obsessive thoughts, Physical abuse, Sexual abuse, Sleep disturbances, Suicidal ideation, Other Eyes: No Blurry vision, No Decreased vision, No Double vision, No Dry eyes, No Excessive tearing, No Eye Pain, No Itchy Eyes, No Loss of vision, No Photophobia, No Scotomata, No Uses contacts, No Uses glasses, No Other HEENT: No: Heacaches, Visual Changes, Hearing change, Nasal congestion, Nasal discharge, Oral lesions, Sinus pain, Sore Throat, Epistaxis, Sneezing, Snoring, Tinnitus, Vertigo, Vocal changes, Other ALLERGY AND IMMUNOLOGY: No: Hives, Insect Bite Sensitivity, Itchy/Watery Eyes, Nasal Congestion, Post Nasal Drip, Seasonal Allergies, Other Hematological and Lymphatic: No: Bleeding Problems, Blood Clots, Blood Transfusions, Brusing, Night Sweats, Pallor, Swollen Lymph Nodes, Other Respiratory: No: Cough, Hemoptysis, Orthopnea, Pleuritic Pain, Shortness of breath, SOB with excertion, Sputum Changes, Stridor, Tachypnea, Wheezing, Other Cardiovascular: No Chest Pain, No Palpitations, No Orthopnea, No Paroxysmal Noc. Dyspnea, No Edema, No Lt Headedness, No Other Gastrointestinal: No Nausea, No Vomiting, No Abdominal Pain, No Diarrhea, No Constipation, No Melena, No Hematochezia, No Other Genitourinary: No Dysuria, No Frequency, No Incontinence, No Hematuria, No Retention, No Discharge, No Urgency, No Pain, No Flank Pain, No Other, No , No , No , No , No , No , No Musculoskeletal: Yes Joint Stiffness Neurological: Yes Gait Disturbance; No Behavorial Changes, No Bowel/Bladder ControlChng, No Confusion, No Dizziness, No Headaches, No Impaired Coord/balance, No Memory Loss, No Numbness/Tingling, No Seizures, No Speech Problems, No Tremors, No Visual Changes, No Weakness, No Other Skin: No Dry Skin, No Eczema, No Hair Changes, No Lumps, No Mole Changes, No Mottling, No Nail Changes, No Pruritus, No Rash, No Skin Lesion Changes, No Other, No Acne Physical Exam Physical Exam HENT: Normocephalic, atraumatic, bilateral external ears normal, oropharynx moist, no oral exudates, nose normal. [] Eyes: PERRLA, EOMI, conjunctiva normal, no discharge. [] Cardiovascular: RRR Lungs & Thorax: Bilateral breath sounds clear to auscultation [] Abdomen: Bowel sounds normal, soft, no tenderness, no masses, no pulsatile masses. [] Skin: Warm, dry, no erythema, no rash. [] Back: No tenderness, no CVA tenderness. [] Extremities: No tenderness, no edema. [] Neurologic: Alert and oriented X 1, [] Psychologic: Affect normal, judgment normal, mood normal. [] General: Alert, Oriented X3, Cooperative, No acute distress HEENT: Atraumatic, PERRLA, EOMI, Mucous membr. moist/pink Lungs: Clear to auscultation, Normal air movement Heart: RRR Breasts: Not examined Abdomen: Normal bowel sounds, Soft Rectal Exam: not examined PELVIC: Examination not indicated Extremities: No cyanosis Neuro: Normal speech, Normal tone, Sensation intact, Cranial nerves 3-12 NL Psych/Mental Status: Mental status NL, Mood NL Vitals Vitals Vital Signs Date Time Temp Pulse Resp B/P (MAP) Pulse Ox O2 Delivery O2 Flow Rate FiO2 08/13/19 03:25 98.1 117 20 174/85 (114) 94 Nasal Cannula 2.5 98.1 Labs Labs Laboratory Tests Test 08/12/19 19:00 08/12/19 19:26 08/12/19 19:29 08/12/19 19:30 Sodium Level 137 mmol/L (136-145) Potassium Level 3.4 mmol/L (3.5-5.1) Chloride Level 98 mmol/L (98-107) Carbon Dioxide Level 27 mmol/L (21-32) Anion Gap 12 (6-14) Blood Urea Nitrogen 17 mg/dL (7-20) Creatinine 0.7 mg/dL (0.6-1.0) Estimated GFR (Cockcroft-Gault) 90.9 BUN/Creatinine Ratio 24 (6-20) Glucose Level 265 mg/dL (70-99) Calcium Level 9.1 mg/dL (8.5-10.1) Total Bilirubin 0.4 mg/dL (0.2-1.0) Aspartate Amino Transf (AST/SGOT) 19 U/L (15-37) Alanine Aminotransferase (ALT/SGPT) 25 U/L (14-59) Alkaline Phosphatase 118 U/L (46-116) Total Protein 7.7 g/dL (6.4-8.2) Albumin 3.4 g/dL (3.4-5.0) Albumin/Globulin Ratio 0.8 (1.0-1.7) Salicylates Level 3.2 mg/dL (2.8-20.0) Salicylate Last Dose Date Unk Salicylate Last Dose Time Unk Acetaminophen Level < 2 mcg/ml (10-30) Acetaminophen Last Dose Date Unk Acetaminophen Last Dose Time Unk Ethyl Alcohol Level < 10 mg/dL (0-10) Urine Collection Type U cath Urine Color Yellow Urine Clarity Clear Urine pH 6.0 Urine Specific Locke >=1.030 Urine Protein Negative mg/dL (NEG-TRACE) Urine Glucose (UA) 500 mg/dL (NEG) Urine Ketones (Stick) 40 mg/dL (NEG) Urine Blood Negative (NEG) Urine Nitrite Negative (NEG) Urine Bilirubin Negative (NEG) Urine Urobilinogen Dipstick 0.2 mg/dL (0.2 mg/dL) Urine Leukocyte Esterase Negative (NEG) Urine RBC 3-5 /HPF (0-2) Urine WBC 1-4 /HPF (0-4) Urine Squamous Epithelial Cells Occ /LPF Urine Bacteria Few /HPF (0-FEW) Urine Hyaline Casts Moderate /HPF Urine Mucus Marked /LPF Urine Opiates Screen Neg (NEG) Urine Methadone Screen Neg (NEG) Urine Barbiturates Neg (NEG) Urine Phencyclidine Screen Neg (NEG) Urine Amphetamine/Methamphetamine Neg (NEG) Urine Benzodiazepines Screen Neg (NEG) Urine Cocaine Screen Neg (NEG) Urine Cannabinoids Screen Neg (NEG) Urine Ethyl Alcohol Neg (NEG) Bedside Urine HCG, Qualitative Hcg negative (Negative) O2 Saturation 93 % (92-99) Arterial Blood pH 7.33 (7.35-7.45) Arterial Blood pCO2 at Patient Temp 52 mmHg (35-46) Arterial Blood pO2 at Patient Temp 74 mmHg (75-108) Arterial Blood HCO3 27 mmol/L (21-28) Arterial Blood Base Excess 0 mmol/L (-3-3) Test 08/12/19 20:00 08/13/19 04:25 White Blood Count 7.5 x10^3/uL (4.0-11.0) 5.9 x10^3/uL (4.0-11.0) Red Blood Count 4.01 x10^6/uL (3.50-5.40) 4.15 x10^6/uL (3.50-5.40) Hemoglobin 12.3 g/dL (12.0-15.5) 12.6 g/dL (12.0-15.5) Hematocrit 35.7 % (36.0-47.0) 37.1 % (36.0-47.0) Mean Corpuscular Volume 89 fL (79-100) 89 fL (79-100) Mean Corpuscular Hemoglobin 31 pg (25-35) 30 pg (25-35) Mean Corpuscular Hemoglobin Concent 34 g/dL (31-37) 34 g/dL (31-37) Red Cell Distribution Width 12.8 % (11.5-14.5) 13.4 % (11.5-14.5) Platelet Count 319 x10^3/uL (140-400) 316 x10^3/uL (140-400) Neutrophils (%) (Auto) 75 % (31-73) 65 % (31-73) Lymphocytes (%) (Auto) 14 % (24-48) 24 % (24-48) Monocytes (%) (Auto) 11 % (0-9) 10 % (0-9) Eosinophils (%) (Auto) 1 % (0-3) 1 % (0-3) Basophils (%) (Auto) 0 % (0-3) 0 % (0-3) Neutrophils # (Auto) 5.6 x10^3/uL (1.8-7.7) 3.8 x10^3/uL (1.8-7.7) Lymphocytes # (Auto) 1.0 x10^3/uL (1.0-4.8) 1.4 x10^3/uL (1.0-4.8) Monocytes # (Auto) 0.8 x10^3/uL (0.0-1.1) 0.6 x10^3/uL (0.0-1.1) Eosinophils # (Auto) 0.1 x10^3/uL (0.0-0.7) 0.1 x10^3/uL (0.0-0.7) Basophils # (Auto) 0.0 x10^3/uL (0.0-0.2) 0.0 x10^3/uL (0.0-0.2) Sodium Level 139 mmol/L (136-145) Potassium Level 3.0 mmol/L (3.5-5.1) Chloride Level 101 mmol/L (98-107) Carbon Dioxide Level 26 mmol/L (21-32) Anion Gap 12 (6-14) Blood Urea Nitrogen 12 mg/dL (7-20) Creatinine 0.6 mg/dL (0.6-1.0) Estimated GFR (Cockcroft-Gault) 108.6 BUN/Creatinine Ratio 20 (6-20) Glucose Level 198 mg/dL (70-99) Calcium Level 8.7 mg/dL (8.5-10.1) Total Bilirubin 0.4 mg/dL (0.2-1.0) Aspartate Amino Transf (AST/SGOT) 16 U/L (15-37) Alanine Aminotransferase (ALT/SGPT) 22 U/L (14-59) Alkaline Phosphatase 104 U/L (46-116) Total Protein 7.0 g/dL (6.4-8.2) Albumin 2.9 g/dL (3.4-5.0) Albumin/Globulin Ratio 0.7 (1.0-1.7) Laboratory Tests Test 08/12/19 19:00 08/12/19 19:26 08/12/19 19:29 08/12/19 19:30 Sodium Level 137 mmol/L (136-145) Potassium Level 3.4 mmol/L (3.5-5.1) Chloride Level 98 mmol/L (98-107) Carbon Dioxide Level 27 mmol/L (21-32) Anion Gap 12 (6-14) Blood Urea Nitrogen 17 mg/dL (7-20) Creatinine 0.7 mg/dL (0.6-1.0) Estimated GFR (Cockcroft-Gault) 90.9 BUN/Creatinine Ratio 24 (6-20) Glucose Level 265 mg/dL (70-99) Calcium Level 9.1 mg/dL (8.5-10.1) Total Bilirubin 0.4 mg/dL (0.2-1.0) Aspartate Amino Transf (AST/SGOT) 19 U/L (15-37) Alanine Aminotransferase (ALT/SGPT) 25 U/L (14-59) Alkaline Phosphatase 118 U/L (46-116) Total Protein 7.7 g/dL (6.4-8.2) Albumin 3.4 g/dL (3.4-5.0) Albumin/Globulin Ratio 0.8 (1.0-1.7) Salicylates Level 3.2 mg/dL (2.8-20.0) Salicylate Last Dose Date Unk Salicylate Last Dose Time Unk Acetaminophen Level < 2 mcg/ml (10-30) Acetaminophen Last Dose Date Unk Acetaminophen Last Dose Time Unk Ethyl Alcohol Level < 10 mg/dL (0-10) Urine Collection Type U cath Urine Color Yellow Urine Clarity Clear Urine pH 6.0 Urine Specific Locke >=1.030 Urine Protein Negative mg/dL (NEG-TRACE) Urine Glucose (UA) 500 mg/dL (NEG) Urine Ketones (Stick) 40 mg/dL (NEG) Urine Blood Negative (NEG) Urine Nitrite Negative (NEG) Urine Bilirubin Negative (NEG) Urine Urobilinogen Dipstick 0.2 mg/dL (0.2 mg/dL) Urine Leukocyte Esterase Negative (NEG) Urine RBC 3-5 /HPF (0-2) Urine WBC 1-4 /HPF (0-4) Urine Squamous Epithelial Cells Occ /LPF Urine Bacteria Few /HPF (0-FEW) Urine Hyaline Casts Moderate /HPF Urine Mucus Marked /LPF Urine Opiates Screen Neg (NEG) Urine Methadone Screen Neg (NEG) Urine Barbiturates Neg (NEG) Urine Phencyclidine Screen Neg (NEG) Urine Amphetamine/Methamphetamine Neg (NEG) Urine Benzodiazepines Screen Neg (NEG) Urine Cocaine Screen Neg (NEG) Urine Cannabinoids Screen Neg (NEG) Urine Ethyl Alcohol Neg (NEG) Bedside Urine HCG, Qualitative Hcg negative (Negative) O2 Saturation 93 % (92-99) Arterial Blood pH 7.33 (7.35-7.45) Arterial Blood pCO2 at Patient Temp 52 mmHg (35-46) Arterial Blood pO2 at Patient Temp 74 mmHg (75-108) Arterial Blood HCO3 27 mmol/L (21-28) Arterial Blood Base Excess 0 mmol/L (-3-3) Test 08/12/19 20:00 08/13/19 04:25 White Blood Count 7.5 x10^3/uL (4.0-11.0) 5.9 x10^3/uL (4.0-11.0) Red Blood Count 4.01 x10^6/uL (3.50-5.40) 4.15 x10^6/uL (3.50-5.40) Hemoglobin 12.3 g/dL (12.0-15.5) 12.6 g/dL (12.0-15.5) Hematocrit 35.7 % (36.0-47.0) 37.1 % (36.0-47.0) Mean Corpuscular Volume 89 fL (79-100) 89 fL (79-100) Mean Corpuscular Hemoglobin 31 pg (25-35) 30 pg (25-35) Mean Corpuscular Hemoglobin Concent 34 g/dL (31-37) 34 g/dL (31-37) Red Cell Distribution Width 12.8 % (11.5-14.5) 13.4 % (11.5-14.5) Platelet Count 319 x10^3/uL (140-400) 316 x10^3/uL (140-400) Neutrophils (%) (Auto) 75 % (31-73) 65 % (31-73) Lymphocytes (%) (Auto) 14 % (24-48) 24 % (24-48) Monocytes (%) (Auto) 11 % (0-9) 10 % (0-9) Eosinophils (%) (Auto) 1 % (0-3) 1 % (0-3) Basophils (%) (Auto) 0 % (0-3) 0 % (0-3) Neutrophils # (Auto) 5.6 x10^3/uL (1.8-7.7) 3.8 x10^3/uL (1.8-7.7) Lymphocytes # (Auto) 1.0 x10^3/uL (1.0-4.8) 1.4 x10^3/uL (1.0-4.8) Monocytes # (Auto) 0.8 x10^3/uL (0.0-1.1) 0.6 x10^3/uL (0.0-1.1) Eosinophils # (Auto) 0.1 x10^3/uL (0.0-0.7) 0.1 x10^3/uL (0.0-0.7) Basophils # (Auto) 0.0 x10^3/uL (0.0-0.2) 0.0 x10^3/uL (0.0-0.2) Sodium Level 139 mmol/L (136-145) Potassium Level 3.0 mmol/L (3.5-5.1) Chloride Level 101 mmol/L (98-107) Carbon Dioxide Level 26 mmol/L (21-32) Anion Gap 12 (6-14) Blood Urea Nitrogen 12 mg/dL (7-20) Creatinine 0.6 mg/dL (0.6-1.0) Estimated GFR (Cockcroft-Gault) 108.6 BUN/Creatinine Ratio 20 (6-20) Glucose Level 198 mg/dL (70-99) Calcium Level 8.7 mg/dL (8.5-10.1) Total Bilirubin 0.4 mg/dL (0.2-1.0) Aspartate Amino Transf (AST/SGOT) 16 U/L (15-37) Alanine Aminotransferase (ALT/SGPT) 22 U/L (14-59) Alkaline Phosphatase 104 U/L (46-116) Total Protein 7.0 g/dL (6.4-8.2) Albumin 2.9 g/dL (3.4-5.0) Albumin/Globulin Ratio 0.7 (1.0-1.7) VTE Prophylaxis Ordered VTE Prophylaxis Devices: Yes VTE Pharmacological Prophylaxi: No Assessment/Plan Assessment/Plan IMPRESSION ACUTE METABOLIC ENCEPHALOPATHY RESOLVED SEC NARCOTIC OVERUSE Chronic back pain morbid obesity PLAN D/C TO HOME HOLD PAIN MEDS SEE PCP THIS WEEK 56 min d/c planning and exam, chart review JOSE A PEARSON MD Aug 13, 2019 08:38
[2019-08-13 11:00] VITALS: BP 150/80
[2019-08-13 14:43] VITALS: BP 158/78
--- NOTE | 2019-08-13 15:19 | PDOC3 ---
Discharge Summary Date of Admission: Aug 12, 2019 Date of Discharge: Aug 13, 2019 Follow-Up: 3-5 days Admitting Diagnosis comment: Assessment/Plan Assessment/Plan IMPRESSION ACUTE METABOLIC ENCEPHALOPATHY RESOLVED SEC NARCOTIC OVERUSE Chronic back pain morbid obesity PLAN D/C TO HOME HOLD PAIN MEDS SEE PCP THIS WEEK 56 min d/c planning and exam, chart review ROS General: No: Chills, Night Sweats, Fatigue, Malaise, Appetite, Other PSYCHOLOGICAL ROS: No: Anxiety, Behavioral Disorder, Concentration difficultie, Decreased libido, Depression, Disorientation, Hallucinations, Hostility, Irritablity, Memory difficulties, Mood Swings, Obsessive thoughts, Physical abuse, Sexual abuse, Sleep disturbances, Suicidal ideation, Other Eyes: No Blurry vision, No Decreased vision, No Double vision, No Dry eyes, No Excessive tearing, No Eye Pain, No Itchy Eyes, No Loss of vision, No Photophobia, No Scotomata, No Uses contacts, No Uses glasses, No Other HEENT: No: Heacaches, Visual Changes, Hearing change, Nasal congestion, Nasal discharge, Oral lesions, Sinus pain, Sore Throat, Epistaxis, Sneezing, Snoring, Tinnitus, Vertigo, Vocal changes, Other ALLERGY AND IMMUNOLOGY: No: Hives, Insect Bite Sensitivity, Itchy/Watery Eyes, Nasal Congestion, Post Nasal Drip, Seasonal Allergies, Other Hematological and Lymphatic: No: Bleeding Problems, Blood Clots, Blood Transfusions, Brusing, Night Sweats, Pallor, Swollen Lymph Nodes, Other Respiratory: No: Cough, Hemoptysis, Orthopnea, Pleuritic Pain, Shortness of breath, SOB with excertion, Sputum Changes, Stridor, Tachypnea, Wheezing, Other Cardiovascular: No Chest Pain, No Palpitations, No Orthopnea, No Paroxysmal Noc. Dyspnea, No Edema, No Lt Headedness, No Other Gastrointestinal: No Nausea, No Vomiting, No Abdominal Pain, No Diarrhea, No Constipation, No Melena, No Hematochezia, No Other Genitourinary: No Dysuria, No Frequency, No Incontinence, No Hematuria, No Retention, No Discharge, No Urgency, No Pain, No Flank Pain, No Other, No , No , No , No , No , No , No Musculoskeletal: Yes Joint Stiffness Neurological: Yes Gait Disturbance; No Behavorial Changes, No Bowel/Bladder ControlChng, No Confusion, No Dizziness, No Headaches, No Impaired Coord/balance, No Memory Loss, No Numbness/Tingling, No Seizures, No Speech Problems, No Tremors, No Visual Changes, No Weakness, No Other Skin: No Dry Skin, No Eczema, No Hair Changes, No Lumps, No Mole Changes, No Mottling, No Nail Changes, No Pruritus, No Rash, No Skin Lesion Changes, No Other, No Acne Physical Exam Physical Exam HENT: Normocephalic, atraumatic, bilateral external ears normal, oropharynx moist, no oral exudates, nose normal. [] Eyes: PERRLA, EOMI, conjunctiva normal, no discharge. [] Cardiovascular: RRR Lungs & Thorax: Bilateral breath sounds clear to auscultation [] Abdomen: Bowel sounds normal, soft, no tenderness, no masses, no pulsatile masses. [] Skin: Warm, dry, no erythema, no rash. [] Back: No tenderness, no CVA tenderness. [] Extremities: No tenderness, no edema. [] Neurologic: Alert and oriented X 1, [] Psychologic: Affect normal, judgment normal, mood normal. [] General: Alert, Oriented X3, Cooperative, No acute distress HEENT: Atraumatic, PERRLA, EOMI, Mucous membr. moist/pink Lungs: Clear to auscultation, Normal air movement Heart: RRR Breasts: Not examined Abdomen: Normal bowel sounds, Soft Rectal Exam: not examined PELVIC: Examination not indicated Extremities: No cyanosis Neuro: Normal speech, Normal tone, Sensation intact, Cranial nerves 3-12 NL Psych/Mental Status: Mental status NL, Mood NL Vitals Vitals Vital Signs Date Time Temp Pulse Resp B/P (MAP) Pulse Ox O2 Delivery O2 Flow Rate FiO2 08/13/19 03:25 98.1 117 20 174/85 (114) 94 Nasal Cannula 2.5 98.1 Labs FINAL DIAGNOSIS Problems Medical Problems: (1) Altered mental status Status: Acute (2) Hypokalemia Status: Acute Brief Hospital Course Ms. Padilla is a 44 old [sex] who presented with [ ] CONDITION AT DISCHARGE: Improved Discharge Medications Current Medications Sodium Chloride 1,000 ml @ 1,000 mls/hr 1X ONCE IV Last administered on 08/12/19at 19:07; Start 08/12/19 at 18:30; Stop 08/12/19 at 19:29; Status DC Labetalol HCl (Normodyne Iv Push) 10 mg 1X ONCE IVP Last administered on 08/12/19at 19:35; Start 08/12/19 at 19:30; Stop 08/12/19 at 19:31; Status DC Ondansetron HCl (Zofran) 4 mg PRN Q8HRS PRN IV NAUSEA/VOMITING; Start 08/12/19 at 20:15; Stop 08/13/19 at 20:14 Sodium Chloride 1,000 ml @ 75 mls/hr 1X ONCE IV Last administered on 08/12/19at 22:07; Start 08/12/19 at 20:30; Stop 08/13/19 at 09:49; Status DC Naloxone HCl (Narcan) 0.4 mg STK-MED ONCE .ROUTE ; Start 08/12/19 at 20:36; Stop 08/12/19 at 20:36; Status DC Naloxone HCl (Narcan) 0.2 mg 1X ONCE IV Last administered on 08/12/19at 20:45; Start 08/12/19 at 20:45; Stop 08/12/19 at 20:46; Status DC Active Scripts Active Tessalon Perle (Benzonatate) 100 Mg Capsule 1 Cap PO TID PRN 7 Days Augmentin 875-125 Tablet (Amoxicillin/Potassium Clav) 1 Each Tablet 1 Tab PO BID 10 Days Orphenadrine Citrate 100 Mg Tablet.er 1 Tab PO BID PRN No driving or drinking alcohol while taking this medication Orphenadrine Citrate 100 Mg Tablet.er 1 Tab PO BID No driving or drinking alcohol while taking this medication Cephalexin 500 Mg Tablet 1 Tab PO QID Bactrim Ds Tablet (Sulfamethoxazole/Trimethoprim) 1 Each Tablet 1 Tab PO BID Jones 5-325 Tablet (Acetaminophen/Hydrocodone Bitart) 1 Each Tablet 1-2 Each PO PRN Q6HRS PRN as needed for pain Tresiba Flextouch U-100 (Insulin Degludec) 100 Unit/1 Ml Insuln.pen 20 Unit SQ DAILY 30 Days Cyclobenzaprine Hcl 10 Mg Tablet 1 Tab PO TID PRN Ibuprofen 800 Mg Tablet 800 Mg PO PRN Q6HRS PRN Colace (Docusate Sodium) 100 Mg Capsule 100 Mg PO BID Reported Acetaminophen 500 Mg Tablet 500 Mg PO Novolog (Insulin Aspart) 100 Unit/1 Ml Cartridge 10 Unit SQ TIDAC Lipitor (Atorvastatin Calcium) 40 Mg Tablet 1 Tab PO QHS Lisinopril 40 Mg Tablet 40 Mg PO DAILY Metformin Hcl 1,000 Mg Tablet 1,000 Mg PO BIDWMEALS Lyrica (Pregabalin) 75 Mg Capsule 1 Cap PO BID Vital Signs Vital Signs Date Time Temp Pulse Resp B/P (MAP) Pulse Ox O2 Delivery O2 Flow Rate FiO2 08/13/19 14:43 97.3 114 18 158/78 (104) 100 Nasal Cannula 2.5 97.3 Labs Laboratory Tests Test 08/12/19 19:00 08/12/19 19:26 08/12/19 19:29 08/12/19 19:30 Sodium Level 137 mmol/L (136-145) Potassium Level 3.4 mmol/L (3.5-5.1) Chloride Level 98 mmol/L (98-107) Carbon Dioxide Level 27 mmol/L (21-32) Anion Gap 12 (6-14) Blood Urea Nitrogen 17 mg/dL (7-20) Creatinine 0.7 mg/dL (0.6-1.0) Estimated GFR (Cockcroft-Gault) 90.9 BUN/Creatinine Ratio 24 (6-20) Glucose Level 265 mg/dL (70-99) Calcium Level 9.1 mg/dL (8.5-10.1) Total Bilirubin 0.4 mg/dL (0.2-1.0) Aspartate Amino Transf (AST/SGOT) 19 U/L (15-37) Alanine Aminotransferase (ALT/SGPT) 25 U/L (14-59) Alkaline Phosphatase 118 U/L (46-116) Total Protein 7.7 g/dL (6.4-8.2) Albumin 3.4 g/dL (3.4-5.0) Albumin/Globulin Ratio 0.8 (1.0-1.7) Salicylates Level 3.2 mg/dL (2.8-20.0) Salicylate Last Dose Date Unk Salicylate Last Dose Time Unk Acetaminophen Level < 2 mcg/ml (10-30) Acetaminophen Last Dose Date Unk Acetaminophen Last Dose Time Unk Ethyl Alcohol Level < 10 mg/dL (0-10) Urine Collection Type U cath Urine Color Yellow Urine Clarity Clear Urine pH 6.0 Urine Specific [place] >=1.030 Urine Protein Negative mg/dL (NEG-TRACE) Urine Glucose (UA) 500 mg/dL (NEG) Urine Ketones (Stick) 40 mg/dL (NEG) Urine Blood Negative (NEG) Urine Nitrite Negative (NEG) Urine Bilirubin Negative (NEG) Urine Urobilinogen Dipstick 0.2 mg/dL (0.2 mg/dL) Urine Leukocyte Esterase Negative (NEG) Urine RBC 3-5 /HPF (0-2) Urine WBC 1-4 /HPF (0-4) Urine Squamous Epithelial Cells Occ /LPF Urine Bacteria Few /HPF (0-FEW) Urine Hyaline Casts Moderate /HPF Urine Mucus Marked /LPF Urine Opiates Screen Neg (NEG) Urine Methadone Screen Neg (NEG) Urine Barbiturates Neg (NEG) Urine Phencyclidine Screen Neg (NEG) Urine Amphetamine/Methamphetamine Neg (NEG) Urine Benzodiazepines Screen Neg (NEG) Urine Cocaine Screen Neg (NEG) Urine Cannabinoids Screen Neg (NEG) Urine Ethyl Alcohol Neg (NEG) Bedside Urine HCG, Qualitative Hcg negative (Negative) O2 Saturation 93 % (92-99) Arterial Blood pH 7.33 (7.35-7.45) Arterial Blood pCO2 at Patient Temp 52 mmHg (35-46) Arterial Blood pO2 at Patient Temp 74 mmHg (75-108) Arterial Blood HCO3 27 mmol/L (21-28) Arterial Blood Base Excess 0 mmol/L (-3-3) Test 08/12/19 20:00 08/13/19 04:25 White Blood Count 7.5 x10^3/uL (4.0-11.0) 5.9 x10^3/uL (4.0-11.0) Red Blood Count 4.01 x10^6/uL (3.50-5.40) 4.15 x10^6/uL (3.50-5.40) Hemoglobin 12.3 g/dL (12.0-15.5) 12.6 g/dL (12.0-15.5) Hematocrit 35.7 % (36.0-47.0) 37.1 % (36.0-47.0) Mean Corpuscular Volume 89 fL (79-100) 89 fL (79-100) Mean Corpuscular Hemoglobin 31 pg (25-35) 30 pg (25-35) Mean Corpuscular Hemoglobin Concent 34 g/dL (31-37) 34 g/dL (31-37) Red Cell Distribution Width 12.8 % (11.5-14.5) 13.4 % (11.5-14.5) Platelet Count 319 x10^3/uL (140-400) 316 x10^3/uL (140-400) Neutrophils (%) (Auto) 75 % (31-73) 65 % (31-73) Lymphocytes (%) (Auto) 14 % (24-48) 24 % (24-48) Monocytes (%) (Auto) 11 % (0-9) 10 % (0-9) Eosinophils (%) (Auto) 1 % (0-3) 1 % (0-3) Basophils (%) (Auto) 0 % (0-3) 0 % (0-3) Neutrophils # (Auto) 5.6 x10^3/uL (1.8-7.7) 3.8 x10^3/uL (1.8-7.7) Lymphocytes # (Auto) 1.0 x10^3/uL (1.0-4.8) 1.4 x10^3/uL (1.0-4.8) Monocytes # (Auto) 0.8 x10^3/uL (0.0-1.1) 0.6 x10^3/uL (0.0-1.1) Eosinophils # (Auto) 0.1 x10^3/uL (0.0-0.7) 0.1 x10^3/uL (0.0-0.7) Basophils # (Auto) 0.0 x10^3/uL (0.0-0.2) 0.0 x10^3/uL (0.0-0.2) Sodium Level 139 mmol/L (136-145) Potassium Level 3.0 mmol/L (3.5-5.1) Chloride Level 101 mmol/L (98-107) Carbon Dioxide Level 26 mmol/L (21-32) Anion Gap 12 (6-14) Blood Urea Nitrogen 12 mg/dL (7-20) Creatinine 0.6 mg/dL (0.6-1.0) Estimated GFR (Cockcroft-Gault) 108.6 BUN/Creatinine Ratio 20 (6-20) Glucose Level 198 mg/dL (70-99) Calcium Level 8.7 mg/dL (8.5-10.1) Total Bilirubin 0.4 mg/dL (0.2-1.0) Aspartate Amino Transf (AST/SGOT) 16 U/L (15-37) Alanine Aminotransferase (ALT/SGPT) 22 U/L (14-59) Alkaline Phosphatase 104 U/L (46-116) Total Protein 7.0 g/dL (6.4-8.2) Albumin 2.9 g/dL (3.4-5.0) Albumin/Globulin Ratio 0.7 (1.0-1.7) Laboratory Tests Test 08/12/19 19:00 08/12/19 19:26 08/12/19 19:29 08/12/19 19:30 Sodium Level 137 mmol/L (136-145) Potassium Level 3.4 mmol/L (3.5-5.1) Chloride Level 98 mmol/L (98-107) Carbon Dioxide Level 27 mmol/L (21-32) Anion Gap 12 (6-14) Blood Urea Nitrogen 17 mg/dL (7-20) Creatinine 0.7 mg/dL (0.6-1.0) Estimated GFR (Cockcroft-Gault) 90.9 BUN/Creatinine Ratio 24 (6-20) Glucose Level 265 mg/dL (70-99) Calcium Level 9.1 mg/dL (8.5-10.1) Total Bilirubin 0.4 mg/dL (0.2-1.0) Aspartate Amino Transf (AST/SGOT) 19 U/L (15-37) Alanine Aminotransferase (ALT/SGPT) 25 U/L (14-59) Alkaline Phosphatase 118 U/L (46-116) Total Protein 7.7 g/dL (6.4-8.2) Albumin 3.4 g/dL (3.4-5.0) Albumin/Globulin Ratio 0.8 (1.0-1.7) Salicylates Level 3.2 mg/dL (2.8-20.0) Salicylate Last Dose Date Unk Salicylate Last Dose Time Unk Acetaminophen Level < 2 mcg/ml (10-30) Acetaminophen Last Dose Date Unk Acetaminophen Last Dose Time Unk Ethyl Alcohol Level < 10 mg/dL (0-10) Urine Collection Type U cath Urine Color Yellow Urine Clarity Clear Urine pH 6.0 Urine Specific [place] >=1.030 Urine Protein Negative mg/dL (NEG-TRACE) Urine Glucose (UA) 500 mg/dL (NEG) Urine Ketones (Stick) 40 mg/dL (NEG) Urine Blood Negative (NEG) Urine Nitrite Negative (NEG) Urine Bilirubin Negative (NEG) Urine Urobilinogen Dipstick 0.2 mg/dL (0.2 mg/dL) Urine Leukocyte Esterase Negative (NEG) Urine RBC 3-5 /HPF (0-2) Urine WBC 1-4 /HPF (0-4) Urine Squamous Epithelial Cells Occ /LPF Urine Bacteria Few /HPF (0-FEW) Urine Hyaline Casts Moderate /HPF Urine Mucus Marked /LPF Urine Opiates Screen Neg (NEG) Urine Methadone Screen Neg (NEG) Urine Barbiturates Neg (NEG) Urine Phencyclidine Screen Neg (NEG) Urine Amphetamine/Methamphetamine Neg (NEG) Urine Benzodiazepines Screen Neg (NEG) Urine Cocaine Screen Neg (NEG) Urine Cannabinoids Screen Neg (NEG) Urine Ethyl Alcohol Neg (NEG) Bedside Urine HCG, Qualitative Hcg negative (Negative) O2 Saturation 93 % (92-99) Arterial Blood pH 7.33 (7.35-7.45) Arterial Blood pCO2 at Patient Temp 52 mmHg (35-46) Arterial Blood pO2 at Patient Temp 74 mmHg (75-108) Arterial Blood HCO3 27 mmol/L (21-28) Arterial Blood Base Excess 0 mmol/L (-3-3) Test 08/12/19 20:00 08/13/19 04:25 White Blood Count 7.5 x10^3/uL (4.0-11.0) 5.9 x10^3/uL (4.0-11.0) Red Blood Count 4.01 x10^6/uL (3.50-5.40) 4.15 x10^6/uL (3.50-5.40) Hemoglobin 12.3 g/dL (12.0-15.5) 12.6 g/dL (12.0-15.5) Hematocrit 35.7 % (36.0-47.0) 37.1 % (36.0-47.0) Mean Corpuscular Volume 89 fL (79-100) 89 fL (79-100) Mean Corpuscular Hemoglobin 31 pg (25-35) 30 pg (25-35) Mean Corpuscular Hemoglobin Concent 34 g/dL (31-37) 34 g/dL (31-37) Red Cell Distribution Width 12.8 % (11.5-14.5) 13.4 % (11.5-14.5) Platelet Count 319 x10^3/uL (140-400) 316 x10^3/uL (140-400) Neutrophils (%) (Auto) 75 % (31-73) 65 % (31-73) Lymphocytes (%) (Auto) 14 % (24-48) 24 % (24-48) Monocytes (%) (Auto) 11 % (0-9) 10 % (0-9) Eosinophils (%) (Auto) 1 % (0-3) 1 % (0-3) Basophils (%) (Auto) 0 % (0-3) 0 % (0-3) Neutrophils # (Auto) 5.6 x10^3/uL (1.8-7.7) 3.8 x10^3/uL (1.8-7.7) Lymphocytes # (Auto) 1.0 x10^3/uL (1.0-4.8) 1.4 x10^3/uL (1.0-4.8) Monocytes # (Auto) 0.8 x10^3/uL (0.0-1.1) 0.6 x10^3/uL (0.0-1.1) Eosinophils # (Auto) 0.1 x10^3/uL (0.0-0.7) 0.1 x10^3/uL (0.0-0.7) Basophils # (Auto) 0.0 x10^3/uL (0.0-0.2) 0.0 x10^3/uL (0.0-0.2) Sodium Level 139 mmol/L (136-145) Potassium Level 3.0 mmol/L (3.5-5.1) Chloride Level 101 mmol/L (98-107) Carbon Dioxide Level 26 mmol/L (21-32) Anion Gap 12 (6-14) Blood Urea Nitrogen 12 mg/dL (7-20) Creatinine 0.6 mg/dL (0.6-1.0) Estimated GFR (Cockcroft-Gault) 108.6 BUN/Creatinine Ratio 20 (6-20) Glucose Level 198 mg/dL (70-99) Calcium Level 8.7 mg/dL (8.5-10.1) Total Bilirubin 0.4 mg/dL (0.2-1.0) Aspartate Amino Transf (AST/SGOT) 16 U/L (15-37) Alanine Aminotransferase (ALT/SGPT) 22 U/L (14-59) Alkaline Phosphatase 104 U/L (46-116) Total Protein 7.0 g/dL (6.4-8.2) Albumin 2.9 g/dL (3.4-5.0) Albumin/Globulin Ratio 0.7 (1.0-1.7) Allergies Allergies Coded Allergies Type Severity Reaction Last Updated Verified No Known Drug Allergies 03/31/18 No Disposition/Orders: D/C to Home JOSE A PEARSON MD Aug 13, 2019 15:19
--- NOTE | 2019-08-13 15:22 | DISCH ---
DISCHARGE INSTRUCTIONS Condition on Discharge Condition on Discharge: Stable Activity After Discharge Activity Instructions for Disc: Activity as tolerated Lifting Instructions after Dis: No heavy lifting, No pulling or pushing, Do not lift >10 pounds Driving Instructions after Dis: Do not drive today Diet after Discharge Diet after Discharge: Regular Liquid Texture: Thin Liquid Checks after Discharge Checks after discharge: Check blood press - daily Contacting the DR. after DC Call your doctor for: If your condition worsens Treatment/Equipment after DC Adaptive Equipment Issued: None JOSE A PEARSON MD Aug 13, 2019 15:22
--- NOTE | 2019-08-13 16:59 | NUR ---
Discharge Note: DANYEL GARAY [facility] Discharge instructions and discharge home medications reviewed with Patient and a copy given. All questions have been answered and understanding verbalized. The following instructions and handouts were given: Discharge Instructions, Follow Up Instructions, patient Teaching Discontinued lines and drains: PIV removed, Catheter intact. Patient discharged to Home with Self-Care via Private Vehicle
--- NOTE | 2019-08-14 07:00 | EKG ---
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
== END 2019-08-13 18:10 | disposition home or self-care (01) | DRG 917 ==
LOC: ER 17:55 → 6 SOUTH 20:10
PROVIDERS: ADMIT Internal Medicine; ATTEND Internal Medicine
DX: T50.901A Poisoning by unspecified drugs, medicaments and biological substances, accidental (unintentional), initial encounter (principal); G93.41 Metabolic encephalopathy; Z68.41 Body mass index [BMI] 40.0-44.9, adult; E11.9 Type 2 diabetes mellitus without complications; E66.01 Morbid (severe) obesity due to excess calories; E78.00 Pure hypercholesterolemia, unspecified; E87.6 Hypokalemia; I10 Essential (primary) hypertension; Z85.41 Personal history of malignant neoplasm of cervix uteri; Z90.710 Acquired absence of both cervix and uterus; G89.29 Other chronic pain; Y92.89 Other specified places as the place of occurrence of the external cause
CPT/HCPCS: 36415; 36600; 70450; 80053; 80307; 80329; 81001; 81025; 82805; 85025; 93005; 94760; G0480; J2310; J3490; J7030; G0378

== ENCOUNTER 2019-08-25 13:30 | Observation (INO) | payer BC ==
[~2019-08-25] VITALS: Ht 162.6 cm; Wt 117.1 kg
[2019-08-25] MEDS ORDERED: ORPHENADRINE CITRATE 60 MG/2 ML VIAL. IM ONE (14:15)
[2019-08-25] MEDS ORDERED: methylPREDNISolone SOD SUCC PF 125 MG/2 ML VIAL. IM ONE (14:15)
--- NOTE | 2019-08-25 14:27 | PHYS DOC ---
Past Medical History Past Medical History: Diabetes-Type II, High Cholesterol, Hypertension, Other Additional Past Medical Histor: sleep apnea Past Surgical History: , Hysterectomy Additional Past Surgical Histo: cervical cancer, R hand Alcohol Use: Rarely Drug Use: None Adult General Chief Complaint Chief Complaint: LOWER BACK PAIN OR INJURY HPI HPI Patient is a 44 year old Female who presents with states she has bulging disks in her lower back and goes to the pain clinic. She states they recently put her on 2 Percocet today. She states that she is taking all the medications she can today but the pain is still a 10 out of 10. States she's taken the Percocet and gabapentin today. States she's also having pain down the right leg as well as in the right lower back but states it is a cramping type pain. Patient states that the pain clinic stated to have her pain as a 10 out of 10 she should come the emergency room. Patient states she tried to go to work today but was unable to. Review of Systems Review of Systems Musculoskeletal: low back pain radiating down right lower legor joint pain [] All other systems were reviewed and found to be within normal limits, except as documented in this note. Current Medications Current Medications Current Medications Medications (Trade) Dose Ordered Sig/Xiao Start Time Stop Time Status Last Admin Dose Admin Acetaminophen (Tylenol) 650 mg PRN Q4HRS PRN 08/25/19 17:15 08/26/19 17:14 Methylprednisolone Sodium Succinate (SOLU-Medrol 125MG VIAL) 62.5 mg 1X ONCE 08/25/19 14:15 08/25/19 14:16 DC 08/25/19 14:28 62.5 MG Morphine Sulfate (Morphine Sulfate) 2 mg PRN Q2HR PRN 08/25/19 17:15 08/26/19 17:14 Ondansetron HCl (Zofran) 4 mg PRN Q8HRS PRN 08/25/19 17:15 08/26/19 17:14 Orphenadrine Citrate (Norflex) 60 mg 1X ONCE 08/25/19 14:15 08/25/19 14:16 DC 08/25/19 14:28 60 MG Allergies Allergies Allergies Coded Allergies Type Severity Reaction Last Updated Verified No Known Drug Allergies 03/31/18 No Physical Exam Physical Exam Constitutional: Well developed, well nourished, no acute distress, non-toxic appearance. [] HENT: Normocephalic, atraumatic, bilateral external ears normal, oropharynx moist, no oral exudates, nose normal. [] Eyes: PERRLA, EOMI, conjunctiva normal, no discharge. [] Neck: Normal range of motion, no tenderness, supple, no stridor. [] Cardiovascular:Heart rate regular rhythm, no murmur [] Lungs & Thorax: Bilateral breath sounds clear to auscultation [] Abdomen: Bowel sounds normal, soft, no tenderness, no masses, no pulsatile mas ses. [] Skin: Warm, dry, no erythema, no rash. [] Back: No tenderness, no CVA tenderness. [] Extremities: No tenderness, no cyanosis, no clubbing, ROM intact, no edema. [] Neurologic: Alert and oriented X 3, normal motor function, normal sensory function, no focal deficits noted. [] Psychologic: Affect normal, judgement normal, mood normal.\ Normal Physical Exam [] Current Patient Data Vital Signs Vital Signs Date Time Temp Pulse Resp B/P (MAP) Pulse Ox O2 Delivery O2 Flow Rate FiO2 08/25/19 13:50 98.2 129 22 184/87 (119) 96 Room Air 98.2 Lab Values Laboratory Tests Test 08/25/19 16:25 Urine Collection Type Unknown Urine Color Yellow Urine Clarity Clear Urine pH 5.5 Urine Specific [place] >=1.030 Urine Protein Negative mg/dL (NEG-TRACE) Urine Glucose (UA) 500 mg/dL (NEG) Urine Ketones (Stick) Negative mg/dL (NEG) Urine Blood Negative (NEG) Urine Nitrite Negative (NEG) Urine Bilirubin Negative (NEG) Urine Urobilinogen Dipstick 0.2 mg/dL (0.2 mg/dL) Urine Leukocyte Esterase Negative (NEG) Urine RBC 0 /HPF (0-2) Urine WBC 1-4 /HPF (0-4) Urine Squamous Epithelial Cells Many /LPF Urine Bacteria Few /HPF (0-FEW) Urine Mucus Marked /LPF EKG EKG [] Radiology/Procedures Radiology/Procedures [] Impressions: [facility] [address] [place] [address] IMAGING REPORT Signed PATIENT: DANYEL GARAY SACCOUNT: [id number] : 1975 LOCATION: ER AGE: 44 SEX: F EXAM STATUS: REG ER ORD. PHYSICIAN: MARY HIGGINS APRN REASON: increased pain PROCEDURE: CT LUMBAR SPINE WO CONTRAST CT LUMBAR SPINE WO CONTRAST History: Increased back pain. Technique: Noncontrast CT was performed of the lumbar spine. Multiplanar reconstructions were performed. Exposure: One or more of the following individualized dose reduction techniques were utilized for this examination: 1. Automated exposure control 2. Adjustment of the mA and/or kV according to patient size 3. Use of iterative reconstruction technique. 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 Unfused transverse processes L1. For the purposes of this report L5-S1 is identified on axial series 2 image 62. Grade 1/2 anterolisthesis L5 on S1. Chronic bilateral L5 spondylolysis. Chronic bilateral L4 spondylolysis. Minimal grade 1 anterolisthesis L4 on L5. Normal vertebral body height. No fracture. T12-L1: No canal or neuroforaminal narrowing. L1-L2: No canal or neuroforaminal narrowing. L2-L3: No canal or neuroforaminal narrowing. L3-L4: Minimal posterior disc bulge. Mild facet arthropathy. Ligament of flavum thickening. No canal narrowing. No neuroforaminal narrowing. L4-L5: Minimal anterolisthesis. Posterior disc bulge. Moderate facet arthropathy. Subarticular recess narrowing. No canal narrowing. Moderate left and severe right neuroforaminal narrowing. L5-S1: Anterolisthesis. Disc uncovering. Severe disc migration. Subarticular recess narrowing. Severe bilateral neural foraminal narrowing. No definite canal narrowing. Impression: 1. Transitional lumbosacral anatomy. 2. Grade I/II anterolisthesis L5 on S1 due to L5 chronic spondylolysis contributing to severe bilateral neural foraminal narrowing. 3. Grade I slight anterolisthesis L4 on L5 due to chronic L4 spondylolysis contributing to severe right and moderate left neuroforaminal narrowing. Electronically signed by: Eddie Sevilla DO (08/25/2019 3:52 PM) [id number] DICTATED and SIGNED BY: EDDIE SEVILLA DO DATE: 08/25/19 155 Course & Med Decision Making Course & Med Decision Making Denies incontinence of bowel or bladder, saddle anesthesia, numbness, weakness. No extremity swelling. Pedal pulses present. No pain to the back with palpation or to the leg. Ambulatory with steady gait. Full range of motion in the hip and knee and ankle. Patient states she has been getting steroid shots in the right lower back. Patient states those aren't helping either. Patient states that she is opting for surgery. Impression: 1. Transitional lumbosacral anatomy. 2. Grade I/II anterolisthesis L5 on S1 due to L5 chronic spondylolysis contributing to severe bilateral neural foraminal narrowing. 3. Grade I slight anterolisthesis L4 on L5 due to chronic L4 spondylolysis contributing to severe right and moderate left neuroforaminal narrowing. Upon walking into the room the patient is sleeping. When I wake her up she starts moaning and saying that her back is hurting again especially when she gets up and walks. She states the pain is too great when she is up and moves. I have spoken to Dr Beltran about this patients uncontrolled back pain. He ststes to admit the patient and consult Dr Akins. Miriam Disclaimer Miriam Disclaimer This electronic medical record was generated, in whole or in part, using a voice recognition dictation system. Departure Departure Impression: Primary Impression: Intractable back pain Disposition: ADMITTED INPATIENT Admitting Physician: Stephanie Beltran Condition: STABLE Referrals: EDELMIRA SÁNCHEZ (PCP) MARY HIGGINS [employer] Aug 25, 2019 14:27
--- NOTE | 2019-08-25 15:55 | RAD ---
CT LUMBAR SPINE WO CONTRAST History: Increased back pain. Technique: Noncontrast CT was performed of the lumbar spine. Multiplanar reconstructions were performed. Exposure: One or more of the following individualized dose reduction techniques were utilized for this examination: 1. Automated exposure control 2. Adjustment of the mA and/or kV according to patient size 3. Use of iterative reconstruction technique. 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 Unfused transverse processes L1. For the purposes of this report L5-S1 is identified on axial series 2 image 62. Grade 1/2 anterolisthesis L5 on S1. Chronic bilateral L5 spondylolysis. Chronic bilateral L4 spondylolysis. Minimal grade 1 anterolisthesis L4 on L5. Normal vertebral body height. No fracture. T12-L1: No canal or neuroforaminal narrowing. L1-L2: No canal or neuroforaminal narrowing. L2-L3: No canal or neuroforaminal narrowing. L3-L4: Minimal posterior disc bulge. Mild facet arthropathy. Ligament of flavum thickening. No canal narrowing. No neuroforaminal narrowing. L4-L5: Minimal anterolisthesis. Posterior disc bulge. Moderate facet arthropathy. Subarticular recess narrowing. No canal narrowing. Moderate left and severe right neuroforaminal narrowing. L5-S1: Anterolisthesis. Disc uncovering. Severe disc migration. Subarticular recess narrowing. Severe bilateral neural foraminal narrowing. No definite canal narrowing. Impression: 1. Transitional lumbosacral anatomy. 2. Grade I/II anterolisthesis L5 on S1 due to L5 chronic spondylolysis contributing to severe bilateral neural foraminal narrowing. 3. Grade I slight anterolisthesis L4 on L5 due to chronic L4 spondylolysis contributing to severe right and moderate left neuroforaminal narrowing. Electronically signed by: Eddie Sevilla DO (08/25/2019 3:52 PM) [facility]
[2019-08-25 16:39] LABS: BILIRUBIN,URINE NEGATIVE (NEG); CLARITY,URINE CLEAR; COLOR,URINE YELLOW; NITRITE,URINE NEGATIVE (NEG); PH,URINE 5.5; PROTEIN,URINE NEGATIVE (NEG-TRACE); UROBILINOGEN,URINE 0.2 mg/dL (0.2 mg/dL)
[2019-08-25 16:44] LABS: BACTERIA,URINE FEW /HPF (0-FEW); RBC,URINE 0 /HPF (0-2); SQUAMOUS EPITHELIAL CELL,UR MANY /LPF
[2019-08-25] MEDS ORDERED: ONDANSETRON PF 4 MG/2 ML VIAL. IV PRN (17:15)
[2019-08-25] MEDS ORDERED: ACETAMINOPHEN 325 MG TABLET. PO PRN (17:15)
[2019-08-25 17:18] LABS: BASO % 0 % (0-3); EOS % 0 % (0-3); HEMATOCRIT 39.2 % (36.0-47.0); HEMOGLOBIN 13.1 g/dL (12.0-15.5); LYMPH # 0.6 x10^3/uL (1.0-4.8); LYMPH % 9 % (24-48); MEAN CORPUSCULAR HEMOGLOBIN 30 pg (25-35); MEAN CORPUSCULAR HGB CONC 33 g/dL (31-37); MEAN CORPUSCULAR VOLUME 89 fL (79-100); MONO # 0.1 x10^3/uL (0.0-1.1); MONO % 2 % (0-9); NEUT # 6.1 x10^3/uL (1.8-7.7); NEUT % 89 % (31-73); PLATELET COUNT 310 x10^3/uL (140-400); RED BLOOD COUNT 4.39 x10^6/uL (3.50-5.40); RED CELL DISTRIBUTION WIDTH 13.2 % (11.5-14.5); WHITE BLOOD COUNT 6.9 x10^3/uL (4.0-11.0)
[2019-08-25 17:24] LABS: CALCIUM 9.7 mg/dL (8.5-10.1); CREATININE 0.8 mg/dL (0.6-1.0); GFR 77.9; POTASSIUM 4.3 mmol/L (3.5-5.1)
[2019-08-25 17:31] LABS: ALBUMIN 3.4 g/dL (3.4-5.0); ALBUMIN/GLOBULIN RATIO 0.8 (1.0-1.7); TOTAL BILIRUBIN 0.3 mg/dL (0.2-1.0); TOTAL PROTEIN 7.7 g/dL (6.4-8.2)
[2019-08-25 17:54] LABS: % EOS 1 % (0-5); % LYMPHS 11 % (24-48); % METAS 1 % (0-0); % SEGS 87 % (35-66); PLT ESTIMATE ADEQUATE (ADEQUATE)
[2019-08-25] MEDS: MORPHINE SULFATE 2 MG/ML VIAL. IV PRN ×2 (18:29→21:31)
[2019-08-25 19:00] VITALS: BP 138/71
[2019-08-25 23:00] VITALS: BP 127/61
[2019-08-26] MEDS: MORPHINE SULFATE 2 MG/ML VIAL. IV PRN ×3 (02:45→08:39)
[2019-08-26 03:00] VITALS: BP 150/80
[2019-08-26 07:00] VITALS: BP 135/88
[2019-08-26] MEDS ORDERED: NAPR220T70 PO (08:48)
[2019-08-26] MEDS ORDERED: ATOR20TA58 PO (08:48)
[2019-08-26] MEDS ORDERED: PREG100C PO (08:49)
[2019-08-26] MEDS ORDERED: DULO60CA6 PO (08:53)
[2019-08-26] MEDS ORDERED: LINA5TAB PO (08:54)
[2019-08-26] MEDS ORDERED: LISINOPRIL 20 MG TABLET PO SCH (09:00)
[2019-08-26] MEDS ORDERED: oxyCODONE/APAP 10/325 1 TAB TABLET PO PRN (10:00)
[2019-08-26 11:00] VITALS: BP 144/85
[2019-08-26] MEDS ORDERED: oxyCODONE/APAP 5/325 1 TAB TABLET PO PRN (11:30)
[2019-08-26] MEDS ORDERED: BENZONATATE 100 MG CAPSULE. PO PRN (11:30)
[2019-08-26] MEDS ORDERED: oxyCODONE/APAP 7.5/325 1 TAB TABLET PO PRN (11:30)
[2019-08-26] MEDS ORDERED: DEXTROSE 50% 25 GM / 50ML DISP.SYRIN. IV PRN (11:30)
[2019-08-26] MEDS ORDERED: LINAGLIPTIN 5 MG TABLET PO SCH (12:00)
[2019-08-26] MEDS ORDERED: PREGABALIN 50 MG CAPSULE PO SCH (12:00)
[2019-08-26] MEDS ORDERED: NAPROXEN 250 MG TABLET PO SCH (12:00)
[2019-08-26] MEDS ORDERED: DOCUSATE SODIUM 100 MG CAPSULE. PO SCH (12:00)
--- NOTE | 2019-08-26 12:16 | PDOC ---
Provider Note Provider Note H&P dictated.#[id number]. TAN CARTER MD Aug 26, 2019 12:15
[2019-08-26] MEDS ORDERED: OXYC1TAB19 PO (12:18)
[2019-08-26] MEDS: IBUPROFEN 400 MG TABLET. PO SCH ×2 (12:20→13:00)
[2019-08-26] MEDS: INSULIN LISPRO 300 UNITS/3 ML VIAL. SQ SCH ×4 (12:27→17:06)
--- NOTE | 2019-08-26 12:34 | HP ---
ADMIT DATE: 08/25/2019 LOCATION: 563. REASON FOR ADMISSION TO THE HOSPITAL: Severe back pain. The patient has history of L4-L5 lumbar disk with right sciatica, failure of outpatient treatment. HISTORY OF PRESENT ILLNESS: The patient is a 44-year-old female, patient of Dr. Rausch. The patient has seen Dr. Rausch, was referred to pain clinic. She had MRI of the lumbar spine done at [facility]. This was within the last 6 weeks, had 3 series of 3 epidural shots without much improvement. 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 PAST MEDICAL HISTORY: The patient has history of diabetes, hypertension, hyperlipidemia. Denies any problem with the heart and the lungs. PAST SURGICAL HISTORY: Had a lump removed from the left breast, and she also had a hysterectomy. ALLERGIES: No known allergies. MEDICATIONS AT HOME: The patient takes atorvastatin 20 mg daily, Colace 100 mg daily, Cymbalta 60 mg daily, insulin 10 units 3 times daily, NovoLog and Tresiba 20 units at bedtime, Tradjenta 5 mg daily, lisinopril 40 mg daily, metformin 1000 mg twice a day, naproxen, Lyrica 100 mg twice a day. PERSONAL HISTORY: Smokes 1 pack for last 20 years. Social marijuana. Denies any alcohol. REVIEW OF SYMPTOMS: Complains of pain in the back going all the way to the right foot. Denies any problem with bladder and bowel. Rest of her systems was reviewed and negative. PHYSICAL EXAMINATION: VITAL SIGNS: Temperature 97, pulse 119, respirations 18, blood pressure 135/88, 93% on room air. HEENT: Head is atraumatic. Pupils equal. Oral cavity: No congestion. NECK: Supple. Thyroid not enlarged. JVD not elevated. CHEST: Symmetrical. CARDIOVASCULAR: S1, S2. LUNGS: Clear. ABDOMEN: Soft, bowel sounds present, no mass palpable. EXTERNAL GENITALIA: No Le. RECTAL: Deferred. EXTREMITIES: The patient is moving upper and lower extremities, right leg. Straight leg raise testing was positive for pain. The patient has some skin bruising in extremities. LABORATORY DATA: CBC was normal. Chem profile was unremarkable. Glucose 376. LFTs were normal. Urine shows glucose 100, negative for nitrite. CT of the lumbar spine shows L4-L5 anterolisthesis, L5-S1. FINAL IMPRESSION: 1. Right sciatica. 2. Severe back pain secondary to L4-L5 disk with spondylolisthesis. 3. Diabetes, hypertension, hyperlipidemia. 4. Obesity, BMI of 44. 5. History of smoking. PLAN: At this time, was admitted to the hospital for observation, pain control, rehab consult. Rehab was consulted, Dr. Mckeon of Neurosurgery for evaluation. The patient already had received treatment with prednisone as well as epidural shots without much improvement, probably may need surgery. If surgery cannot be done at this admission, could be discharged home with outpatient surgery. TAN CARTER MD DR: SANTHOSH/arash JOB#: [id number] / [id number] EDELMIRA Stauffer
[2019-08-26 15:00] VITALS: BP 152/74
[2019-08-26] MEDS ORDERED: metFORMIN 500 MG TABLET PO SCH (17:00)
--- NOTE | 2019-08-26 18:33 | NUR ---
Discharge Note: DANYEL GARAY [address] Discharge instructions and discharge home medications reviewed with Patient and a copy given. All questions have been answered and understanding verbalized. Follow up appointments reviewed. The following instructions and handouts were given: Back Pain, Adult; Lumbosacral Radiculopathy; Cane use Discontinued lines and drains: peripheral IV removed. Catheter intact. No complications Patient discharged to home with self-care via ambulation to private vehicle.
--- NOTE | 2019-08-26 20:55 | CONS ---
DATE OF CONSULTATION: 08/26/2019 ATTENDING PHYSICIAN: Stephanie Beltran MD The patient was seen at the request of Dr. Beltran for rehab evaluation. 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 The patient has been having problem with her lower back pain with pain radiating to her right lower extremity with associated tingling and numbness and weakness going on for several months. She had gone through physical therapy and also had been going to pain clinic in [place] for lumbar epidural steroid injection, last one done on 08/22/2019, which did not help her much, second one done earlier in the year, helped for about 2 weeks. The patient was admitted through the Emergency Room with 10/10 pain in her lower back with radiation to her right lower extremity and right hip. She had a CT scan of her lumbar vertebrae done, which revealed multilevel degenerative disk disease and facet degenerative joint disease changes with some narrowing of neural foramina, mainly at L4-L5 on the right side and also bilaterally at L5-S1 level. The patient has been taking ibuprofen and Naprosyn on as needed basis and also takes Percocet. She had used hydrocodone before. The patient was started on Percocet recently. The patient admits pain is under better control with morphine by parenterally. She admits occasional urinary leakage. She denies any trouble with constipation. The patient with known diabetes mellitus, under control with medication. PAST MEDICAL HISTORY: Also includes hypercholesterolemia, hypertension, sleep apnea. The patient is status post , hysterectomy, also cervical carcinoma by history. The patient had surgery on her right hand. PHYSICAL EXAMINATION: Revealed a middle-aged female. She is alert, oriented to time, place, person and circumstance and follows commands appropriately, moves all 4 extremities voluntarily where she had 4+/5 grade muscle strength except she had only 2+/5 grade muscle strength in right foot dorsiflexors and right third toe dorsiflexors. Deep tendon reflexes are 2+ and symmetrical. She had decreased sensory perception over right L5-S1 dermatome area. She had tenderness to palpation over lumbar paraspinal muscles extending over to sacroiliac joint area and right trochanteric bursa mainly on the right side. Straight leg raising test is negative bilaterally. She had painful range of motion on both hip, knee and ankle joints. She is independent with bed mobility and transfers and up walking. She is not using proper body mechanics during mobility. She had some bruised skin areas on her lower extremities. She had difficulty to try to walk on her heels with her right foot. Negative Tinel's sign over right peroneal nerve at fibular neck area. She is slightly obese. ASSESSMENT: A middle-aged female with chronic lower back pain from degenerative disk disease and degenerative joint disease of lumbar vertebrae with neural foraminal compromise mainly on the right side at L4-L5 and bilaterally at L5-S1 with significant spondylolisthesis of L4 on L5 and L5 on S1 with right L5 radiculopathy and right trochanteric bursitis. The patient with known diabetes mellitus, hypertension and hyperlipidemia. RECOMMENDATION: To ask for a Neurosurgery consult. To check post-voiding urine residual to make sure she is emptying her bladder. Hopefully, she can have lumbar decompression laminectomy as she had significant weakness of right foot dorsiflexor muscles and lumbar epidural steroid injections are not helping much. Dr. Beltran, I appreciate asking me to participate in the care of this interesting patient. I will be glad to follow her with you as needed for her rehabilitation. MARIO RAMOS MD DR: DANNY/arash JOB#: [id number] / [id number] lolly Rausch Dr.
[2019-08-26] MEDS ORDERED: ATORVASTATIN CALCIUM 20 MG TABLET PO SCH (21:00)
[2019-08-26] MEDS ORDERED: DULoxetine HCL 30 MG CAPSULE.DR PO SCH (21:00)
[2019-08-27] MEDS ORDERED: INSULIN GLARGINE SYRINGE. SQ SCH (09:00)
--- NOTE | 2019-08-30 15:37 | PDOC ---
Provider Note Provider Note Discharge summary dictated.#[id number]. TAN CARTER MD Aug 30, 2019 15:37
--- NOTE | 2019-08-31 00:48 | DS ---
DATE OF DISCHARGE: 08/26/2019 REASON FOR ADMISSION TO THE HOSPITAL: Severe back pain, has a disk problem, lumbar disk. CONSULTATIONS: Dr. Akins. PROCEDURES DONE: CT of the lumbar spine. COMPLICATIONS NOTED: None. HOSPITAL COURSE: The patient is a 44-year-old female. The patient has a chronic back pain, had seen pain clinic, had epidural shots and she had an MRI at [facility], showed L4-L5 disk. She was in the process of seeing Neurosurgery for pain because the pain was not relieved with the 3 epidural shots. The patient came in with severe pain and was admitted to the hospital. Had a CT of the lumbar spine, shows L4-L5 disk and seen by Dr. Akins. The patient was given IV pain medications and on the weekend, it was felt that the patient could be discharged home and see Dr. Mckeon, Neurosurgery, outpatient, was given pain pill and muscle relaxers for a week. FINAL DIAGNOSES: 1. L4-L5 disk, acute low back pain with right sciatica. 2. Diabetes. 3. Hypertension. DISPOSITION: Home. See [facility] for discharge medications. Follow up with Neurosurgery. Pain pills for less than 7 days along with muscle relaxers. TAN CARTER MD DR: SANTHOSH/arash JOB#: [id number] / [id number] EDELMIRA Stauffer
== END 2019-08-26 18:17 | disposition home or self-care (01) ==
LOC: ER 13:30 → 5 SOUTH 17:04 → INTOOBSV 17:04
PROVIDERS: ADMIT Internal Medicine; ATTEND Internal Medicine
DX: M51.16 Intervertebral disc disorders with radiculopathy, lumbar region (principal); M51.17 Intervertebral disc disorders with radiculopathy, lumbosacral region; E78.5 Hyperlipidemia, unspecified; I10 Essential (primary) hypertension; E78.00 Pure hypercholesterolemia, unspecified; E11.9 Type 2 diabetes mellitus without complications; Z90.710 Acquired absence of both cervix and uterus
CPT/HCPCS: 36415; 72131; 80053; 81001; 82962; 85007; 85025; 96372; 96374; 96376; 97110; 97116; 97162; 99284; G0378; J2270; J2360; J2930; G0379; J1815; 99285-25

== ENCOUNTER 2019-11-20 17:10 | Emergency (ER) | payer BC ==
[~2019-11-20] VITALS: Ht 162.6 cm; Wt 117.6 kg
[~2019-11-20 17:10] MED LIST changes: +ATOR20TA58 PO; +DULO60CA6 PO; +LINA5TAB PO; +NAPR220T70 PO; +OXYC1TAB19 PO; +PREG100C PO
[2019-11-20] MEDS ORDERED: METH-38 PO (17:39)
[2019-11-20] MEDS ORDERED: HYDR-3164 PO (17:39)
--- NOTE | 2019-11-20 17:40 | PHYS DOC ---
Past Medical History Past Medical History: Diabetes-Type II, High Cholesterol, Hypertension, Other Additional Past Medical Histor: sleep apnea,CHRONIC LOWER BACK PAIN/SLIPPED DISCS (GREER SERRATO) Past Surgical History: , Hysterectomy, Other Additional Past Surgical Histo: cervical cancer, R hand (GREER SERRATO) Smoking Status: Current Every Day Smoker Additional Information: 1 PPD Alcohol Use: Rarely Drug Use: None (GREER SERRATO) Adult General Chief Complaint Chief Complaint: LOWER BACK PAIN OR INJURY HPI HPI Patient is a 44 year old F who is here with acute flare up of her chronic sciatica. Pt states the back pain has been getting worse over the last few weeks and she saw her pain management doctor last week and they are discussing her options for treatment. Pt states the pain increased over the last 24 hours and she called the doctor several times today to discuss pain control since she has been taking Ibuprofen without relief and she is out of hydrocodone. She did not hear back from her doctor and did not know what to do. I discussed with pt that while the ER cannot take care of chronic pain, I would be happy to treat her for 1-2 days until she can contact her doctor but that all future pain management will need to be handled through them and she voices understanding. (GREER SERRATO) Review of Systems Review of Systems Constitutional: Denies fever or chills HENT: Denies nasal congestion or sore throat Respiratory: Denies cough or shortness of breath Cardiovascular: Denies chest pain. GI: Denies abdominal pain, nausea, vomiting, bloody stools or diarrhea. Musculoskeletal: Reports back pain with pain down her R leg. Integument: Denies rash or skin lesions Neurologic: Denies headache, focal weakness or sensory changes All other systems were reviewed and found to be within normal limits, except as documented in this note. (GREER SERRATO) Allergies Allergies Allergies Coded Allergies Type Severity Reaction Last Updated Verified No Known Drug Allergies 03/31/18 No (OYL SANCHEZ DO) Physical Exam Physical Exam Constitutional: Well developed, well nourished, no acute distress, non-toxic appearance. HENT: Normocephalic, atraumatic, bilateral external ears normal, oropharynx moist, no oral exudates, nose normal. Neck: Normal range of motion, no tenderness, supple, no stridor. Cardiovascular:Heart rate regular rhythm, no murmur Lungs & Thorax: Bilateral breath sounds clear to auscultation Abdomen: Bowel sounds normal, soft, no tenderness, no masses, no pulsatile masses. Skin: Warm, dry, no erythema, no rash. Back: R low back pain over perispinous region with radiation down R buttock and leg to foot. She has full ROM and neurovascular intact. Extremities: No cyanosis, no clubbing, ROM intact, no edema. Neurologic: Alert and oriented X 3, normal motor function, normal sensory function, no focal deficits noted. Psychologic: Affect normal, judgement normal, mood normal. (GREER SERRATO) Current Patient Data Vital Signs Vital Signs Date Time Temp Pulse Resp B/P (MAP) Pulse Ox O2 Delivery O2 Flow Rate FiO2 11/20/19 17:57 119 17 153/85 (107) 96 Room Air 11/20/19 17:17 98.0 98.0 (OLY SANCHEZ DO) EKG EKG [] (GREER SERRATO) Radiology/Procedures Radiology/Procedures [] (GREER SERRATO) Course & Med Decision Making Course & Med Decision Making Pt hypertensive and tachycardic. Suspect some of this is from pain, and possible withdrawal since she does report she has been out of her hydrocodone for the last few days. Discussed need for rest, ice/heat and close f/u with PCP or pain management and she agrees with plan. She is ambulatory with slow steady gait out of ER. (GREER SERRATO) Dragon Disclaimer Dragon Disclaimer This electronic medical record was generated, in whole or in part, using a voice recognition dictation system. (GREER SERRATO) Departure Departure Impression: Primary Impression: Sciatica of right side Disposition: HOME, SELF-CARE Condition: STABLE Referrals: EDELMIRA SÁNCHEZ (PCP) Patient Instructions: Sciatica, [id number] Additional Instructions: Ice/Heat therapy, no heavy lifting. Please contact your primary doctor or pain management doctor tomorrow to discuss further care. Scripts Methocarbamol (ROBAXIN-750) 750 Mg Tablet 1 TAB PO TID PRN for MUSCLE SPASMS, #21 TAB 0 Refills Prov: GREER SERRATO 11/20/19 Hydrocodone/Apap 5-325 (NORCO 5-325 TABLET) 1 Each Tablet 1-2 TAB PO Q4-6HRS PRN for PAIN, #12 TAB Prov: GREER SERRATO 11/20/19 Attending Signature Attending Signature I have reviewed the PA/DIAGNOSTIC CARDIAC SONOGRAPHER's note and plan of care. I was available for consultation as needed during the patient's visit in the emergency department. I agree with the clinical impression, plan, and disposition. (OLY SANCHEZ DO) GREER SERRATO Nov 20, 2019 17:39 OLY SANCHEZ DO Nov 24, 2019 18:12
[2019-11-20 17:57] VITALS: BP 153/85
== END 2019-11-20 17:57 | disposition home or self-care (01) ==
LOC: ER 17:10
DX: G89.29 Other chronic pain (principal); M54.41 Lumbago with sciatica, right side; E11.9 Type 2 diabetes mellitus without complications; E78.00 Pure hypercholesterolemia, unspecified; I10 Essential (primary) hypertension; F17.200 Nicotine dependence, unspecified, uncomplicated; Z90.710 Acquired absence of both cervix and uterus; Z98.890 Other specified postprocedural states
CPT/HCPCS: 99283

== ENCOUNTER 2019-12-04 19:44 | Emergency (ER) | payer BC ==
[~2019-12-04] VITALS: Ht 162.6 cm; Wt 116.1 kg
[~2019-12-04 19:44] MED LIST changes: +METH-38 PO
[2019-12-04] MEDS ORDERED: KETOROLAC 60 MG/2 ML VIAL. IM ONE (20:15)
[2019-12-04] MEDS ORDERED: ORPHENADRINE CITRATE 60 MG/2 ML VIAL. IM ONE (20:15)
--- NOTE | 2019-12-04 20:16 | PHYS DOC ---
Past Medical History Past Medical History: Diabetes-Type II, High Cholesterol, Hypertension, Other Additional Past Medical Histor: sleep apnea,CHRONIC LOWER BACK PAIN/SLIPPED DISCS (MARY HIGGINS APRN) Past Surgical History: , Hysterectomy, Other Additional Past Surgical Histo: cervical cancer, R hand (MARY HIGGINS APRN) Smoking Status: Current Every Day Smoker Alcohol Use: Rarely Drug Use: None (MARY HIGGINS APRN) Attending Signature I have participated in the care of this patient and I have reviewed and agree with all pertinent clinical information above including history, exam, and recommendations. (CAMDEN SANCHEZ MD) Adult General Chief Complaint Chief Complaint: BACK PAIN - NO INJURY HPI HPI Patient is a 44 year old female who presents with chronic back pain with right- sided sciatica which patient is complaining of. Patient states she is also having pain that wraps around into the bladder and it feels sore. She states that she is having urinary frequency. Denies fevers, nausea, vomiting, diarrhea, loss of bowel or bladder, chest pain, shortness of air, headache, dizziness, numbness or tingling. Patient states the gabapentin is not helping and Percocet twice a day is not helping. Patient states the pains have increased over the last 3 days and she has been working so that is why she has not called her primary care physician. Rates her pain 10 out of 10. (MARY HIGGINS APRN) Review of Systems Review of Systems : dysuria or denies hematuria [] Musculoskeletal: back pain or joint pain [] All other systems were reviewed and found to be within normal limits, except as documented in this note. (MARY HIGGINS APRN) Current Medications Current Medications Current Medications Medications (Trade) Dose Ordered Sig/Xiao Start Time Stop Time Status Last Admin Dose Admin Ketorolac Tromethamine (Toradol Im) 60 mg 1X ONCE 12/04/19 20:15 12/04/19 20:16 DC 12/04/19 20:31 60 MG Orphenadrine Citrate (Norflex) 60 mg 1X ONCE 12/04/19 20:15 12/04/19 20:16 DC 12/04/19 20:30 60 MG (CAMDEN SANCHEZ MD) Allergies Allergies Allergies Coded Allergies Type Severity Reaction Last Updated Verified No Known Drug Allergies 03/31/18 No (CAMDEN SANCHEZ MD) Physical Exam Physical Exam Constitutional: Well developed, well nourished, no acute distress, non-toxic appearance. [] HENT: Normocephalic, atraumatic, bilateral external ears normal, oropharynx moist, no oral exudates, nose normal. [] Eyes: PERRLA, EOMI, conjunctiva normal, no discharge. [] Neck: Normal range of motion, no tenderness, supple, no stridor. [] Cardiovascular:Heart rate regular rhythm, no murmur [] Lungs & Thorax: Bilateral breath sounds clear to auscultation [] Abdomen: Bowel sounds normal, soft, no tenderness, no masses, no pulsatile masses. [] Skin: Warm, dry, no erythema, no rash. [] Back: Right low back tenderness, no CVA tenderness. [] Extremities: No tenderness, no cyanosis, no clubbing, ROM intact, no edema. [] Neurologic: Alert and oriented X 3, normal motor function, normal sensory function, no focal deficits noted. [] Psychologic: Affect normal, judgement normal, mood normal. [] (MARY HIGGINS APRN) Current Patient Data Vital Signs Vital Signs Date Time Temp Pulse Resp B/P (MAP) Pulse Ox O2 Delivery O2 Flow Rate FiO2 12/04/19 21:52 98.6 100 18 125/67 (86) 99 98.6 12/04/19 20:21 Room Air (CAMDEN SANCHEZ MD) Lab Values Laboratory Tests Test 12/04/19 20:16 Urine Collection Type Unknown Urine Color Yellow Urine Clarity Clear Urine pH 5.5 (<5.0-8.0) Urine Specific Simpson >=1.030 (1.000-1.030) Urine Protein Negative mg/dL (NEG-TRACE) Urine Glucose (UA) 100 mg/dL (NEG) Urine Ketones (Stick) Negative mg/dL (NEG) Urine Blood Negative (NEG) Urine Nitrite Negative (NEG) Urine Bilirubin Negative (NEG) Urine Urobilinogen Dipstick 0.2 mg/dL (0.2 mg/dL) Urine Leukocyte Esterase Negative (NEG) Urine RBC 0 /HPF (0-2) Urine WBC 1-4 /HPF (0-4) Urine Squamous Epithelial Cells Mod /LPF Urine Bacteria Few /HPF (0-FEW) Urine Hyaline Casts Moderate /HPF Urine Mucus Mod /LPF (CAMDEN SANCHEZ MD) Lab Values Laboratory Tests Test 12/04/19 20:16 Urine Collection Type Unknown Urine Color Yellow Urine Clarity Clear Urine pH 5.5 (<5.0-8.0) Urine Specific Simpson >=1.030 (1.000-1.030) Urine Protein Negative mg/dL (NEG-TRACE) Urine Glucose (UA) 100 mg/dL (NEG) Urine Ketones (Stick) Negative mg/dL (NEG) Urine Blood Negative (NEG) Urine Nitrite Negative (NEG) Urine Bilirubin Negative (NEG) Urine Urobilinogen Dipstick 0.2 mg/dL (0.2 mg/dL) Urine Leukocyte Esterase Negative (NEG) Urine RBC 0 /HPF (0-2) Urine WBC 1-4 /HPF (0-4) Urine Squamous Epithelial Cells Mod /LPF Urine Bacteria Few /HPF (0-FEW) Urine Hyaline Casts Moderate /HPF Urine Mucus Mod /LPF (MARY HIGGINS APRN) EKG EKG [] (MARY HIGGINS APRN) Radiology/Procedures Radiology/Procedures [] (MARY HIGGINS APRN) Impressions: [facility] [address] [place], [place] [id number] IMAGING REPORT Signed PATIENT: DANYEL GARAY SACCOUNT: [id number] : 1975 LOCATION: ER AGE: 44 SEX: F EXAM STATUS: REG ER ORD. PHYSICIAN: MARY HIGGINS APRN REASON: PAIN, FREQUENCY PROCEDURE: CT ABDOMEN PELVIS WO CONTRAST Exam: CT of abdomen and pelvis without contrast INDICATION: Pain, frequency TECHNIQUE: Sequential axial images through the abdomen and pelvis obtained without IV contrast. Sagittal and coronal reformatted images were reconstructed from the axial data and reviewed. Comparisons: None FINDINGS: Heart size is normal. No pericardial effusion. 7 mm nodule in the left lower lobe series 2 image 1. No pleural effusion or thickening. Evaluation of solid organs is limited secondary to noncontrast technique. Liver, spleen, pancreas, gallbladder and adrenals are unremarkable. No perinephric inflammation or hydronephrosis. No renal or ureteral calculi. Bladder is decompressed not well evaluated. Uterus is absent. No abnormal adnexal mass. Large and small bowel are unremarkable. Appendix is normal. No free intra-abdominal air or fluid. No obstruction. Abdominal aorta has a normal course and caliber. No enlarged abdominal lymph nodes are identified. Bilateral pars defect at L5 with grade 1 anterior listhesis of L5 on S1. No suspicious masses or acute fractures identified. Small amount of air is noted within the subcutaneous fat of the right flank. IMPRESSION: 1. No renal or ureteral calculi. No evidence for obstructive uropathy. 2. No acute process identified within the abdomen or pelvis. 3. A 7 mm nodule in the left lower lobe. 6 month follow-up chest CT is recommended to reassess. Exposure: One or more of the following in the visualized dose reduction techniques were utilized for this examination: 1. Automated exposure control 2. Adjustment of the MA and/or KV according to patient size 3. Use of iterative of reconstructive technique Electronically signed by: Irma Estes MD (12/04/2019 9:25 PM) [id number] DICTATED and SIGNED BY: IRMA ESTES MD DATE: 12/04/192124 (MARY HIGGINS APRN) Course & Med Decision Making Course & Med Decision Making Pertinent Labs and Imaging studies reviewed. (See chart for details) Ambulatory with a steady gait. Speaks in full clear sentences. Skin pink warm and dry. Tenderness to the right lower back. Abdomen is soft and nontender. Patient states that the pain going from her back down her whole right leg is a sciatica she has had that she states is getting worse and the pain medicine is not helping even though they recently increased her gabapentin 600 mg. States that pain is sharp and shooting. She states the soreness type pain that wraps around into her abdomen is new. Alert and oriented. She has a history of diabetes, high cholesterol, hypertension, chronic back pain with slipped disks, sciatica. Patient is given Toradol IM, orphenadrine IM Patient states her pain is down to a 4 out of 10. [] (MARY HIGGINS APRN) Dragon Disclaimer Dragon Disclaimer This electronic medical record was generated, in whole or in part, using a voice recognition dictation system. (MARY HIGGINS APRN) Departure Departure Impression: Primary Impression: Sciatica of right side Additional Impressions: Back pain Urinary tract infection symptoms Disposition: 01 HOME, SELF-CARE Condition: STABLE Referrals: EDELMIRA SÁNCHEZ (PCP) Patient Instructions: Sciatica with Rehab-Sports[facility], Urinary Frequency Additional Instructions: Call your primary care doctor in the morning let them know about your increased pain. Take medications as prescribed with food. Drink plenty of fluids. Scripts Orphenadrine Citrate (ORPHENADRINE CITRATE) 100 Mg Tablet.er 1 TAB PO BID, #14 TAB Prov: MARY HIGGINS APRN 12/04/19 Methylprednisolone (MEDROL) 4 Mg Tab.ds.pk 1 PKG PO UD, #1 PKG Prov: MARY HIGGINS APRN 12/04/19 Cephalexin (KEFLEX) 500 Mg Capsule 1 CAP PO BID for 7 Days, #14 CAP 0 Refills Prov: MARY HIGGINS APRN 12/04/19 Problem Qualifiers Additional Impressions: Back pain Back pain location: low back pain Chronicity: chronic Back pain laterality: right Sciatica presence: with sciatica Sciatica laterality: sciatica of right side Qualified Codes: M54.41 - Lumbago with sciatica, right side; G89.29 - Other chronic pain MARY HIGGINS APRN Dec 04, 2019 20:16 CAMDEN SANCHEZ MD Dec 05, 2019 02:23
[2019-12-04 20:26] LABS: BILIRUBIN,URINE NEGATIVE (NEG); CLARITY,URINE CLEAR; COLOR,URINE YELLOW; NITRITE,URINE NEGATIVE (NEG); PH,URINE 5.5 (<5.0-8.0); PROTEIN,URINE NEGATIVE (NEG-TRACE); UROBILINOGEN,URINE 0.2 mg/dL (0.2 mg/dL)
[2019-12-04 20:38] LABS: BACTERIA,URINE FEW /HPF (0-FEW); RBC,URINE 0 /HPF (0-2); SQUAMOUS EPITHELIAL CELL,UR MOD /LPF
[2019-12-04 20:39] LABS: HYALINE CASTS, URINE MODERATE /HPF
--- NOTE | 2019-12-04 21:28 | RAD ---
Exam: CT of abdomen and pelvis without contrast INDICATION: Pain, frequency TECHNIQUE: Sequential axial images through the abdomen and pelvis obtained without IV contrast. Sagittal and coronal reformatted images were reconstructed from the axial data and reviewed. Comparisons: None FINDINGS: Heart size is normal. No pericardial effusion. 7 mm nodule in the left lower lobe series 2 image 1. No pleural effusion or thickening. Evaluation of solid organs is limited secondary to noncontrast technique. Liver, spleen, pancreas, gallbladder and adrenals are unremarkable. No perinephric inflammation or hydronephrosis. No renal or ureteral calculi. Bladder is decompressed not well evaluated. Uterus is absent. No abnormal adnexal mass. Large and small bowel are unremarkable. Appendix is normal. No free intra-abdominal air or fluid. No obstruction. Abdominal aorta has a normal course and caliber. No enlarged abdominal lymph nodes are identified. Bilateral pars defect at L5 with grade 1 anterior listhesis of L5 on S1. No suspicious masses or acute fractures identified. Small amount of air is noted within the subcutaneous fat of the right flank. IMPRESSION: 1. No renal or ureteral calculi. No evidence for obstructive uropathy. 2. No acute process identified within the abdomen or pelvis. 3. A 7 mm nodule in the left lower lobe. 6 month follow-up chest CT is recommended to reassess. Exposure: One or more of the following in the visualized dose reduction techniques were utilized for this examination: 1. Automated exposure control 2. Adjustment of the MA and/or KV according to patient size 3. Use of iterative of reconstructive technique Electronically signed by: Irma Marroquin MD (12/04/2019 9:25 PM) [id number]
[2019-12-04] MEDS ORDERED: METH4TAB2 PO (21:33)
[2019-12-04] MEDS ORDERED: ORPH100T PO (21:33)
[2019-12-04] MEDS ORDERED: CEPH-264 PO (21:33)
[2019-12-04 21:52] VITALS: BP 125/67
== END 2019-12-04 21:52 | disposition home or self-care (01) ==
LOC: ER 19:44
DX: G89.29 Other chronic pain (principal); M54.41 Lumbago with sciatica, right side; E11.9 Type 2 diabetes mellitus without complications; E78.00 Pure hypercholesterolemia, unspecified; I10 Essential (primary) hypertension; F17.200 Nicotine dependence, unspecified, uncomplicated; Z98.890 Other specified postprocedural states; Z90.710 Acquired absence of both cervix and uterus
CPT/HCPCS: 74176; 81001; 96372; 99284; J1885; J2360

== ENCOUNTER 2019-12-10 11:43 | Emergency (ER) | payer BC ==
[~2019-12-10] VITALS: Ht 162.6 cm; Wt 113.0 kg
[~2019-12-10 11:43] MED LIST changes: +CEPH-264 PO; +METH4TAB2 PO
[2019-12-10 11:47] VITALS: BP 153/91
[2019-12-10] MEDS ORDERED: KETOROLAC 60 MG/2 ML VIAL. IM ONE (12:00)
[2019-12-10] MEDS ORDERED: methylPREDNISolone SOD SUCC PF 125 MG/2 ML VIAL. IM ONE (12:00)
--- NOTE | 2019-12-10 12:01 | PHYS DOC ---
Past Medical History Past Medical History: Diabetes-Type II, High Cholesterol, Hypertension, Other Additional Past Medical Histor: sleep apnea,CHRONIC LOWER BACK PAIN/SLIPPED DISCS Past Surgical History: , Hysterectomy, Other Additional Past Surgical Histo: cervical cancer, R hand Smoking Status: Current Every Day Smoker Alcohol Use: Rarely Drug Use: None Adult General Chief Complaint Chief Complaint: LOWER BACK PAIN OR INJURY HPI HPI Patient is a 44 year old female with history of chronic back pain x2 years duration. She presents with complaint of acute flareup of her low back pain with radiation to her anterolateral aspect of her lower abdomen which is consistent with previous flareups. She has no difficulty with urination or loss of bowel or bladder control or saddle anesthesia. The patient reports that she was referred to a general surgeon and was seen on November 15 but was told she had to stop smoking for 3 weeks before he would perform surgery for discectomy; patient has not stopped smoking. She also reports that she is following with her primary care physician for pain management but is has not seen him for the last couple of weeks. The patient has been to the ER on November 19 and December 03 and both time received pain medications. Review of Systems Review of Systems All other systems were reviewed and found to be within normal limits, except as documented in this note. Allergies Allergies Allergies Coded Allergies Type Severity Reaction Last Updated Verified No Known Drug Allergies 03/31/18 No Physical Exam Physical Exam Constitutional: Well developed, well nourished, no acute distress, non-toxic appearance. [] HENT: Normocephalic, atraumatic, bilateral external ears normal, oropharynx moist, no oral exudates, nose normal. [] Eyes: PERRLA, EOMI, conjunctiva normal, no discharge. [] Neck: Normal range of motion, no tenderness, supple, no stridor. [] Cardiovascular:Heart rate regular rhythm, no murmur [] Lungs & Thorax: Bilateral breath sounds clear to auscultation [] Abdomen: Bowel sounds normal, soft, no tenderness, no masses, no pulsatile masses. [] Skin: Warm, dry, no erythema, no rash. [] Back: Patient has some pain in the right lumbar region with range of motion of the lower extremity Extremities: No tenderness, no cyanosis, no clubbing, ROM intact, no edema. [] Neurologic: Alert and oriented X 3, normal motor function, normal sensory function, no focal deficits noted. [] Psychologic: Affect normal, judgement normal, mood normal. [] EKG EKG [] Radiology/Procedures Radiology/Procedures [] Course & Med Decision Making Course & Med Decision Making Pertinent Labs and Imaging studies reviewed. (See chart for details) This patient is seen for chronic back pain. I informed her that I would be happy to give her an injection of Toradol and steroids in the ED but for ongoing pain management she will need to follow-up with her primary care physician. She is also encouraged not smoking so she can get the surgery that is needed to relieve her back pain. Patient voices understanding. She is stable for discharge Dragon Disclaimer Dragon Disclaimer This electronic medical record was generated, in whole or in part, using a voice recognition dictation system. Departure Departure Impression: Primary Impression: Chronic low back pain Disposition: 01 HOME, SELF-CARE Condition: STABLE Referrals: EDELMIRA SÁNCHEZ (PCP) Please follow up for ongoing pain management. DAYANA MONTALVO DO Dec 10, 2019 12:01
== END 2019-12-10 12:15 | disposition home or self-care (01) ==
LOC: ER 11:43
DX: G89.29 Other chronic pain (principal); M54.5 Low back pain; E11.9 Type 2 diabetes mellitus without complications; E78.00 Pure hypercholesterolemia, unspecified; I10 Essential (primary) hypertension; F17.200 Nicotine dependence, unspecified, uncomplicated; Z90.710 Acquired absence of both cervix and uterus; Z98.890 Other specified postprocedural states; Z85.89 Personal history of malignant neoplasm of other organs and systems
CPT/HCPCS: 96372; 99284; J1885; J2930

== ENCOUNTER 2019-12-31 10:18 | Emergency (ER) | payer BC ==
[~2019-12-31] VITALS: Ht 162.6 cm; Wt 114.0 kg
[2019-12-31 10:30] VITALS: BP 160/106
[2019-12-31] MEDS ORDERED: ORPHENADRINE CITRATE 60 MG/2 ML VIAL. IM ONE (11:00)
[2019-12-31] MEDS ORDERED: CYCL10TA2 PO (11:16)
[2019-12-31] MEDS ORDERED: Percogesic PO (11:16)
--- NOTE | 2019-12-31 11:16 | PHYS DOC ---
Past Medical History Past Medical History: Diabetes-Type I, High Cholesterol, Hypertension Additional Past Medical Histor: sleep apnea,CHRONIC LOWER BACK PAIN/SLIPPED DISCS Past Surgical History: No Surgical History Additional Past Surgical Histo: cervical cancer, R hand Smoking Status: Current Every Day Smoker Alcohol Use: None Drug Use: None General Adult EDM: Chief Complaint: LOWER BACK PAIN OR INJURY HPI: HPI: Patient is a 44 year old female with history of hypertension, dyslipidemia, diabetes mellitus, chronic low back pain, sleep apnea who presents with complaining of low back pain. Patient states she has had bulging disc and chronic back pain for more than 1 year and was not able to have back surgery because of her smoking and was seen at pain management with 3 times epidural injection injection. Patient states for the last 10 to 14 days she has increasing of her low back pain that did not get better with taking Lyrica and gabapentin and she is already ran out of Percocet and hydrocodone and was not able to see a new primary care physician until January 02. Patient rated her pain 8/10 and states she has radiation of the pain to lateral of her leg with intermittent episodes of numbness for the last 2 weeks without fever and chills, abdominal pain, urine and bowel incontinence, nausea and vomiting. According to K tract patient had 60 of Percocet on November 22 and 60 of hydrocodone on November 20. Patient has had frequent emergency room visits with complaining of back pain. Review of Systems: Review of Systems: Constitutional: Denies fever or chills. [] Eyes: Denies change in visual acuity. [] HENT: Denies nasal congestion or sore throat. [] Respiratory: Denies cough or shortness of breath. [] Cardiovascular: Denies chest pain or edema. [] GI: Denies abdominal pain, nausea, vomiting, bloody stools or diarrhea. [] : Denies dysuria. [] Musculoskeletal: Reports back pain Integument: Denies rash. [] Neurologic: Denies headache, focal weakness or sensory changes. [] Endocrine: Denies polyuria or polydipsia. [] Lymphatic: Denies swollen glands. [] Psychiatric: Denies depression or anxiety. [] Heart Score: Risk Factors: Risk Factors: DM, Current or recent (<one month) smoker, HTN, HLP, family history of CAD, obesity. Risk Scores: Score 0 - 3: 2.5% MACE over next 6 weeks - Discharge Home Score 4 - 6: 20.3% MACE over next 6 weeks - Admit for Clinical Observation Score 7 - 10: 72.7% MACE over next 6 weeks - Early Invasive Strategies Current Medications: Current Medications Medications (Trade) Dose Ordered Sig/Xiao Start Time Stop Time Status Last Admin Dose Admin Orphenadrine Citrate (Norflex) 60 mg 1X ONCE 12/31/19 11:00 12/31/19 11:01 UNV Allergies: Allergies: Allergies Coded Allergies Type Severity Reaction Last Updated Verified No Known Drug Allergies 03/31/18 No Physical Exam: PE: Constitutional: Well developed, well nourished, mild distress, non-toxic appearance, morbidly obese, very anxious. [] HENT: Normocephalic, atraumatic. Eyes: PERRLA, EOMI, conjunctiva normal, no discharge. [] Neck: Normal range of motion, no tenderness, supple, no stridor. [] Cardiovascular:Heart rate regular rhythm, no murmur [] Lungs & Thorax: Bilateral breath sounds clear to auscultation [] Abdomen: Bowel sounds normal, soft, no tenderness, no masses, no pulsatile masses. [] Skin: Warm, dry, no erythema, no rash. [] Back: No midline tenderness, painful range of motion, no CVA tenderness. [] Extremities: No tenderness, no cyanosis, no clubbing, ROM intact, no edema. [] Neurologic: Alert and oriented X 3, no focal deficits noted. [] Psychologic: Affect anxious, judgement normal, mood normal. [] Current Patient Data: Vital Signs: Vital Signs Date Time Temp Pulse Resp B/P (MAP) Pulse Ox O2 Delivery O2 Flow Rate FiO2 12/31/19 10:30 98.5 125 18 160/106 (124) 97 Room Air 98.5 EKG: EKG: [] Radiology/Procedures: Radiology/Procedures: [] Course & Med Decision Making: Course & Med Decision Making Evaluation of patient in ER showed 44-year-old female patient with chronic low back pain and frequent emergency room visit presented to ER and asking for pain medication "to make the pain go away'. Patient was anxious with tachycardia at arrival to ER. Patient was advised to follow-up with her primary care physician and pain management regarding long-term pain medication use. Patient also complaining of intermittent episodes of paresthesia of right lower extremity and was advised to follow-up with her physician for possible repeat MRI. Patient also smokes 1 pack a day and was advised to quit smoking to able to have her surgery. Plan discharge patient home with prescription of Flexeril and Pe rcogesic. I've spoken with the patient and/or caregivers. I've explained the patient's condition, diagnosis and treatment plan based on information available to me at this time. I've answered the patient's and/or caregivers questions and addressed any concerns. The patient and/or caregivers have a good understanding the patient's diagnosis, condition and treatment plan as can be expected at this point. Vital signs have been stabilized. The patient's condition is stable for discharge from the emergency department. The patient will pursue further outpatient evaluation with her primary care provider or other designated consulting physician as outlined in the discharge instructions. Patient and/or caregivers are agreeable to this plan of care and follow-up instructions have been explained in detail. The patient and/or caregivers have received these instructions in written format and expressed understanding of these discharge instructions. The patient and her caregivers are aware that if any significant change in condition or worsening of symptoms should prompt him to immediately return to this of the closest emergency department. If an emergent department is not readily available I would encourage him to call 911. Miriam Disclaimer: Miriam Disclaimer: This electronic medical record was generated, in whole or in part, using a voice recognition dictation system. Departure Departure Impression: Primary Impression: Exacerbation of chronic back pain Additional Impressions: Morbid obesity Anxiety about health Tobacco abuse Tobacco abuse counseling Disposition: HOME, SELF-CARE (At 1120) Condition: STABLE Referrals: MARLENE AVILA MD (PCP) Patient Instructions: Chronic Back Pain, Smoking Cessation, Tips For Success Additional Instructions: Apply ice on your back Continue current medication Follow-up with your primary care physician and pain management in 2-3 days Return to ER if not getting better Thank you for visiting [facility]. We appreciate you trusting us with your care. If any additional problems come up don't hesitate to return to visit us. Please follow up with your primary care provider so they can plan additional care if needed and know about the problem that you had. If symptoms worsen come back to the Emergency Department. Any concerning symptoms that start such as chest pain, shortness of air, weakness or numbness on one side of the body, running high fevers or any other concerning symptoms return to the ER. Scripts [Percogesic] No Conflict Check 1 TAB PO 1X PRN for PAIN, #14 Prov: MAGGY DAWKINS MD 12/31/19 Cyclobenzaprine Hcl (CYCLOBENZAPRINE HCL) 10 Mg Tablet 1 TAB PO TID, #21 TAB Prov: MAGGY DAWKINS MD 12/31/19 MAGGY DAWKINS MD Dec 31, 2019 11:16
== END 2019-12-31 11:20 | disposition home or self-care (01) ==
LOC: ER 10:18
DX: G89.29 Other chronic pain (principal); M54.5 Low back pain; F41.8 Other specified anxiety disorders; E10.9 Type 1 diabetes mellitus without complications; E78.00 Pure hypercholesterolemia, unspecified; I10 Essential (primary) hypertension; F17.200 Nicotine dependence, unspecified, uncomplicated; Z98.890 Other specified postprocedural states
CPT/HCPCS: 96372; 99283; J2360

== ENCOUNTER 2020-01-11 11:34 | Emergency (ER) | payer BC ==
[~2020-01-11] VITALS: Ht 162.6 cm; Wt 113.6 kg
[~2020-01-11 11:34] MED LIST changes: +PREG-9 PO; -PREG75CA PO; +Percogesic PO
[2020-01-11] MEDS ORDERED: ONDANSETRON PF 4 MG/2 ML VIAL. IVP ONE (12:00)
[2020-01-11] MEDS ORDERED: IV NORMAL SALINE 1000ML BAG 1,000 ML IV ONE (12:00)
[2020-01-11] MEDS ORDERED: FAMOTIDINE 20 MG/2 ML VIAL IVP ONE (12:00)
[2020-01-11 12:19] LABS: BASO # 0.1 x10^3/uL (0.0-0.2); BASO % 0 % (0-3); EOS # 0.2 x10^3/uL (0.0-0.7); EOS % 1 % (0-3); HEMATOCRIT 44.7 % (36.0-47.0); HEMOGLOBIN 15.2 g/dL (12.0-15.5); LYMPH # 3.1 x10^3/uL (1.0-4.8); LYMPH % 25 % (24-48); MEAN CORPUSCULAR HEMOGLOBIN 30 pg (25-35); MEAN CORPUSCULAR HGB CONC 34 g/dL (31-37); MEAN CORPUSCULAR VOLUME 89 fL (79-100); MONO # 0.9 x10^3/uL (0.0-1.1); MONO % 7 % (0-9); NEUT # 8.4 x10^3/uL (1.8-7.7); NEUT % 67 % (31-73); PLATELET COUNT 407 x10^3/uL (140-400); RED BLOOD COUNT 5.03 x10^6/uL (3.50-5.40); RED CELL DISTRIBUTION WIDTH 14.2 % (11.5-14.5); WHITE BLOOD COUNT 12.6 x10^3/uL (4.0-11.0)
[2020-01-11 12:19] LABS: BILIRUBIN,URINE NEGATIVE (NEG); CLARITY,URINE CLEAR; COLOR,URINE YELLOW; NITRITE,URINE NEGATIVE (NEG); PH,URINE 6.5 (<5.0-8.0); PROTEIN,URINE 100 mg/dL (NEG-TRACE); UROBILINOGEN,URINE 0.2 mg/dL (0.2 mg/dL)
--- NOTE | 2020-01-11 12:20 | PHYS DOC ---
Past Medical History Past Medical History: COPD, Diabetes-Type II, High Cholesterol, Hypertension, Other Additional Past Medical Histor: sleep apnea,CHRONIC LOWER BACK PAIN/SLIPPED DISCS/TACHYCARDIA Past Surgical History: , Hysterectomy, Other Additional Past Surgical Histo: cervical cancer, R hand Smoking Status: Current Every Day Smoker Additional Information: 1 PPD Alcohol Use: None Drug Use: None General Adult EDM: Chief Complaint: NAUSEA/VOMITING/DIARRHA HPI: HPI: 44-year-old female presents with nausea and vomiting which started at 0600 this morning. Patient reports taking energy pills from the gas station last night and then again this morning. Patient reports now with some palpitations. Denies known sick contacts. Denies fever or chills. Reports some intermittent chest discomfort. Denies trauma. Review of Systems: Review of Systems: Constitutional: Denies fever or chills Eyes: Denies redness or eye pain HENT: Denies nasal congestion or sore throat Respiratory: Denies cough or shortness of breath Cardiovascular: Reports chest pain and palpitations GI: Denies abdominal pain; reports nausea, vomiting, and diarrhea : Denies dysuria or hematuria Musculoskeletal: Denies back pain or joint pain Integument: Denies rash or skin lesions Neurologic: Denies headache, focal weakness or sensory changes Complete systems were reviewed and found to be within normal limits, except as documented in this note. Heart Score: HEART Score for Chest Pain: HEART Score for Chest Pain Response (Comments) Value History Slighlty/Non-Suspicious 0 ECG Normal 0 Age < 45 0 Risk Factors >3 Risk Factors or Hx CAD 2 Troponin < Normal Limit 0 Total 2 Risk Factors: Risk Factors: DM, Current or recent (<one month) smoker, HTN, HLP, family history of CAD, obesity. Risk Scores: Score 0 - 3: 2.5% MACE over next 6 weeks - Discharge Home Score 4 - 6: 20.3% MACE over next 6 weeks - Admit for Clinical Observation Score 7 - 10: 72.7% MACE over next 6 weeks - Early Invasive Strategies Current Medications: Current Medications Medications (Trade) Dose Ordered Sig/Xiao Start Time Stop Time Status Last Admin Dose Admin Famotidine (Pepcid Vial) 20 mg 1X ONCE 01/11/20 12:00 01/11/20 12:01 DC Lorazepam (Ativan Inj) 0.5 mg 1X ONCE 01/11/20 12:00 01/11/20 12:01 DC Ondansetron HCl (Zofran) 4 mg 1X ONCE 01/11/20 12:00 01/11/20 12:01 DC Sodium Chloride 1,000 ml @ 1,000 mls/hr 1X ONCE 01/11/20 12:00 01/11/20 12:59 Allergies: Allergies: Allergies Coded Allergies Type Severity Reaction Last Updated Verified No Known Drug Allergies 03/31/18 No Physical Exam: PE: Constitutional: Well developed, well nourished, no acute distress, non-toxic appearance, anxious HENT: Normocephalic, atraumatic, oropharynx moist Eyes: PERRL, EOMI, conjunctiva normal, no discharge, no nystagmus Neck: Normal range of motion, no tenderness, supple Cardiovascular: Heart rate- tachycardia, regular rhythm Lungs & Thorax: Bilateral breath sounds clear to auscultation, no wheezing Abdomen: Soft, no tenderness Skin: Warm, dry, no erythema, no rash Extremities: No tenderness, ROM intact, no edema Neurologic: Alert and oriented X 3, normal motor function, normal sensory function, no focal deficits noted Psychologic: Affect anxious, judgment normal Current Patient Data: Vital Signs: Vital Signs Date Time Temp Pulse Resp B/P (MAP) Pulse Ox O2 Delivery O2 Flow Rate FiO2 01/11/20 11:44 98.1 122 20 228/100 (142) 98 Room Air 98.1 EKG: EKG: @1157 Sinus tachycardia at 117bpm, NO ST elevation, QRS 100ms, QT/QTc 304/428ms Radiology/Procedures: Radiology/Procedures: PROCEDURE: CHEST PA & LATERAL CHEST PA LATERAL History: Chest pain. Comparison: July 22, [address] November 08, 2018 Findings: No consolidation or pleural effusion. Normal heart size. No pneumothorax. Left lower lung nodule compatible with previously seen calcified nodule. Impression: 1. No acute cardiopulmonary process. Electronically signed by: Eddie Sevilla DO (01/11/2020 1:36 PM) [id number] Course & Med Decision Making: Course & Med Decision Making Pertinent Labs and Imaging studies reviewed. (See chart for details) Patient presents with report of chest discomfort and palpitations. History of using gas station energy pills. Patient does have some cardiac risk factors. EKG tachycardic but otherwise stable. Labs obtained and posted to chart. Troponin WNL. HEART score 2. D-dimer WNL. CXR without acute process. Anxiety addressed with interval improvement. Patient stable for discharge with outpatient follow-up with PCP. Discussed findings and plan with patient, who acknowledges understanding and agreement. Miriam Disclaimer: Miriam Disclaimer: This electronic medical record was generated, in whole or in part, using a voice recognition dictation system. Departure Departure Impression: Primary Impression: Palpitations Additional Impression: Nausea & vomiting Qualified Codes: R11.2 - Nausea with vomiting, unspecified Disposition: HOME, SELF-CARE Condition: IMPROVED Referrals: NO PCP (PCP) Patient Instructions: Nausea and Vomiting, [id number], Palpitations, [id number] Scripts Ondansetron (ONDANSETRON ODT) 4 Mg Tab.rapdis 1 TAB PO PRN Q6-8HRS PRN for NAUSEA, #16 TAB Prov: OLY SANCHEZ DO 01/11/20 OLY SANCHEZ DO Jan 11, 2020 12:20
[2020-01-11 12:26] LABS: HYALINE CASTS, URINE MODERATE /HPF; SQUAMOUS EPITHELIAL CELL,UR MOD /LPF
[2020-01-11 12:27] LABS: BACTERIA,URINE MODERATE /HPF (0-FEW)
[2020-01-11 12:28] LABS: PROTHROMBIN TIME PATIENT 12.1 SEC (11.7-14.0)
[2020-01-11 12:29] LABS: CALCIUM 10.1 mg/dL (8.5-10.1); CREATININE 0.8 mg/dL (0.6-1.0); GFR 77.9; POTASSIUM 3.8 mmol/L (3.5-5.1)
[2020-01-11 12:31] LABS: D-DIMER 0.4 ug/mlFEU (0.00-0.50)
[2020-01-11 12:35] LABS: MAGNESIUM 1.3 mg/dL (1.8-2.4); TOTAL BILIRUBIN 0.4 mg/dL (0.2-1.0); TOTAL PROTEIN 8.2 g/dL (6.4-8.2)
[2020-01-11] MEDS ORDERED: MAGNESIUM SULFATE 2GM 50 ML IV ONE (13:00)
--- NOTE | 2020-01-11 13:39 | RAD ---
CHEST PA LATERAL History: Chest pain. Comparison: July 22, [address] November 08, 2018 Findings: No consolidation or pleural effusion. Normal heart size. No pneumothorax. Left lower lung nodule compatible with previously seen calcified nodule. Impression: 1. No acute cardiopulmonary process. Electronically signed by: Eddie Sevilla DO (01/11/2020 1:36 PM) [id number]
[2020-01-11] MEDS ORDERED: ONDA4TAB12 PO (13:54)
[2020-01-11 13:57] VITALS: BP 177/93
--- NOTE | 2020-01-11 14:15 | EKG ---
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
== END 2020-01-11 14:31 | disposition home or self-care (01) ==
LOC: ER 11:34
DX: R00.2 Palpitations (principal); R11.2 Nausea with vomiting, unspecified; R07.89 Other chest pain; E11.9 Type 2 diabetes mellitus without complications; I10 Essential (primary) hypertension; E78.00 Pure hypercholesterolemia, unspecified; J44.9 Chronic obstructive pulmonary disease, unspecified; R00.0 Tachycardia, unspecified; G89.29 Other chronic pain; F17.200 Nicotine dependence, unspecified, uncomplicated; Z90.710 Acquired absence of both cervix and uterus
CPT/HCPCS: 36415; 71046; 80053; 81001; 82553; 83690; 83735; 84484; 85025; 85379; 85610; 85730; 87086; 93005; 96361; 96365; 96366; 96375; 99285; J2060; J2405; J3475; J3490; J7030

== ENCOUNTER 2020-02-07 13:03 | Emergency (ER) | payer BC ==
[~2020-02-07] VITALS: Ht 162.6 cm; Wt 118.0 kg
[~2020-02-07 13:03] MED LIST changes: +ONDA4TAB12 PO
--- NOTE | 2020-02-07 13:28 | EKG ---
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
[2020-02-07] MEDS ORDERED: IV NORMAL SALINE 1000ML BAG 1,000 ML IV ONE (13:30)
[2020-02-07 14:04] LABS: BILIRUBIN,URINE NEGATIVE (NEG); CLARITY,URINE CLEAR; COLOR,URINE YELLOW; NITRITE,URINE NEGATIVE (NEG); PH,URINE 5.5 (<5.0-8.0); PROTEIN,URINE NEGATIVE (NEG-TRACE); UROBILINOGEN,URINE 0.2 mg/dL (0.2 mg/dL)
[2020-02-07 14:08] LABS: BASO % 0 % (0-3); EOS # 0.3 x10^3/uL (0.0-0.7); EOS % 3 % (0-3); HEMATOCRIT 36.8 % (36.0-47.0); HEMOGLOBIN 12.6 g/dL (12.0-15.5); LYMPH # 2.3 x10^3/uL (1.0-4.8); LYMPH % 26 % (24-48); MEAN CORPUSCULAR HEMOGLOBIN 31 pg (25-35); MEAN CORPUSCULAR HGB CONC 34 g/dL (31-37); MEAN CORPUSCULAR VOLUME 89 fL (79-100); MONO # 0.5 x10^3/uL (0.0-1.1); MONO % 6 % (0-9); NEUT # 5.9 x10^3/uL (1.8-7.7); NEUT % 65 % (31-73); PLATELET COUNT 361 x10^3/uL (140-400); RED BLOOD COUNT 4.12 x10^6/uL (3.50-5.40); RED CELL DISTRIBUTION WIDTH 12.9 % (11.5-14.5); WHITE BLOOD COUNT 9.1 x10^3/uL (4.0-11.0)
[2020-02-07 14:09] LABS: BACTERIA,URINE FEW /HPF (0-FEW); RBC,URINE 0 /HPF (0-2); SQUAMOUS EPITHELIAL CELL,UR FEW /LPF; WBC,URINE RARE /HPF (0-4)
[2020-02-07 14:11] LABS: AMPHETAMINE/METHAMPHETAMINE NEG (NEG); BARBITURATES NEG (NEG); BENZODIAZEPINES NEG (NEG); CANNABINOIDS NEG (NEG); COCAINE NEG (NEG); METHADONE NEG (NEG); OPIATES NEG (NEG); PHENCYCLIDINE NEG (NEG)
[2020-02-07 14:25] LABS: ACETAMIN < 2 mcg/ml (10-30); ETHANOL < 10 mg/dL (0-10); SALIC 13.7 mg/dL (2.8-20.0)
[2020-02-07 14:26] LABS: CALCIUM 8.7 mg/dL (8.5-10.1); CREATININE 0.8 mg/dL (0.6-1.0); GFR 77.9; POTASSIUM 4.2 mmol/L (3.5-5.1)
[2020-02-07 14:31] LABS: ALBUMIN 3.4 g/dL (3.4-5.0); MAGNESIUM 1.5 mg/dL (1.8-2.4); TOTAL BILIRUBIN 0.1 mg/dL (0.2-1.0); TOTAL PROTEIN 6.7 g/dL (6.4-8.2)
[2020-02-07] MEDS ORDERED: MAGNESIUM SULFATE 2GM 50 ML IV ONE (14:45)
--- NOTE | 2020-02-07 15:07 | PHYS DOC ---
Past Medical History Past Medical History: COPD, Diabetes-Type II, High Cholesterol, Hypertension, Other Additional Past Medical Histor: sleep apnea,CHRONIC LOWER BACK PAIN/SLIPPED DISCS/TACHYCARDIA Past Surgical History: , Hysterectomy, Other Additional Past Surgical Histo: cervical cancer, R hand Smoking Status: Current Every Day Smoker Alcohol Use: None Drug Use: None General Adult EDM: Chief Complaint: ACCIDENTAL INGESTION HPI: HPI: Patient is a 44 year old female who was brought here by EMS for altered mental status DUE to accidental drug overdose. 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 Patient says she has history of chronic back pain, she usually took this cocktail of medications in the morning when her back pain is 10 out of 10. Patient denies suicidal ideation, denies any headache, denies any neck pain, denies any new back pain, denies any pelvic or hip pain. Review of Systems: Review of Systems: Constitutional: Denies fever or chills. [] Eyes: Denies change in visual acuity. [] HENT: Denies nasal congestion or sore throat. [] Respiratory: Denies cough or shortness of breath. [] Cardiovascular: Denies chest pain or edema. [] GI: Denies abdominal pain, nausea, vomiting, bloody stools or diarrhea. [] : Denies dysuria. [] Musculoskeletal: Denies back pain or joint pain. [] Integument: Denies rash. [] Neurologic: Denies headache, focal weakness or sensory changes. Positive for altered mental status. Endocrine: Denies polyuria or polydipsia. [] Lymphatic: Denies swollen glands. [] Psychiatric: Denies depression or anxiety. Denies suicidal ideation. Heart Score: Risk Factors: Risk Factors: DM, Current or recent (<one month) smoker, HTN, HLP, family history of CAD, obesity. Risk Scores: Score 0 - 3: 2.5% MACE over next 6 weeks - Discharge Home Score 4 - 6: 20.3% MACE over next 6 weeks - Admit for Clinical Observation Score 7 - 10: 72.7% MACE over next 6 weeks - Early Invasive Strategies Current Medications: Current Medications Medications (Trade) Dose Ordered Sig/Xiao Start Time Stop Time Status Last Admin Dose Admin Magnesium Sulfate 50 ml @ 25 mls/hr 1X ONCE 02/07/20 14:45 02/07/20 16:44 Sodium Chloride 1,000 ml @ 1,000 mls/hr 1X ONCE 02/07/20 13:30 02/07/20 14:29 DC 02/07/20 13:30 1,000 MLS/HR Allergies: Allergies: Allergies Coded Allergies Type Severity Reaction Last Updated Verified No Known Drug Allergies 03/31/18 No Physical Exam: PE: Constitutional: Well developed, well nourished, no acute distress, non-toxic appearance. [] HENT: Normocephalic, atraumatic, bilateral external ears normal, oropharynx moist, no oral exudates, nose normal. There is no evidence of injury on the head area, no contusion. Eyes: PERRLA, EOMI, conjunctiva normal, no discharge. [] Neck: Normal range of motion, no tenderness, supple, no stridor. [] Cardiovascular:Heart rate regular rhythm, no murmur [] Lungs & Thorax: Bilateral breath sounds clear to auscultation [] Abdomen: Bowel sounds normal, soft, no tenderness, no masses, no pulsatile masses. [] Skin: Warm, dry, no erythema, no rash. [] Back: No tenderness, no CVA tenderness. [] No evidence of injury in the back, no contusion. Extremities: No tenderness, no cyanosis, no clubbing, ROM intact, no edema. No evidence of injury in the extremity Neurologic: Alert and oriented X 3, normal motor function, normal sensory function, no focal deficits noted. Patient appears somnolent Psychologic: Affect normal, judgement normal, mood normal. Patient denies suicidal ideation Current Patient Data: Labs: Laboratory Tests Test 02/07/20 14:00 White Blood Count 9.1 x10^3/uL (4.0-11.0) Red Blood Count 4.12 x10^6/uL (3.50-5.40) Hemoglobin 12.6 g/dL (12.0-15.5) Hematocrit 36.8 % (36.0-47.0) Mean Corpuscular Volume 89 fL (79-100) Mean Corpuscular Hemoglobin 31 pg (25-35) Mean Corpuscular Hemoglobin Concent 34 g/dL (31-37) Red Cell Distribution Width 12.9 % (11.5-14.5) Platelet Count 361 x10^3/uL (140-400) Neutrophils (%) (Auto) 65 % (31-73) Lymphocytes (%) (Auto) 26 % (24-48) Monocytes (%) (Auto) 6 % (0-9) Eosinophils (%) (Auto) 3 % (0-3) Basophils (%) (Auto) 0 % (0-3) Neutrophils # (Auto) 5.9 x10^3/uL (1.8-7.7) Lymphocytes # (Auto) 2.3 x10^3/uL (1.0-4.8) Monocytes # (Auto) 0.5 x10^3/uL (0.0-1.1) Eosinophils # (Auto) 0.3 x10^3/uL (0.0-0.7) Basophils # (Auto) 0.0 x10^3/uL (0.0-0.2) Urine Collection Type Unknown Urine Color Yellow Urine Clarity Clear Urine pH 5.5 (<5.0-8.0) Urine Specific [place] 1.010 (1.000-1.030) Urine Protein Negative mg/dL (NEG-TRACE) Urine Glucose (UA) Negative mg/dL (NEG) Urine Ketones (Stick) Negative mg/dL (NEG) Urine Blood Negative (NEG) Urine Nitrite Negative (NEG) Urine Bilirubin Negative (NEG) Urine Urobilinogen Dipstick 0.2 mg/dL (0.2 mg/dL) Urine Leukocyte Esterase Negative (NEG) Urine RBC 0 /HPF (0-2) Urine WBC Rare /HPF (0-4) Urine Squamous Epithelial Cells Few /LPF Urine Bacteria Few /HPF (0-FEW) Urine Mucus Slight /LPF Sodium Level 140 mmol/L (136-145) Potassium Level 4.2 mmol/L (3.5-5.1) Chloride Level 102 mmol/L (98-107) Carbon Dioxide Level 27 mmol/L (21-32) Anion Gap 11 (6-14) Blood Urea Nitrogen 17 mg/dL (7-20) Creatinine 0.8 mg/dL (0.6-1.0) Estimated GFR (Cockcroft-Gault) 77.9 BUN/Creatinine Ratio 21 (6-20) H Glucose Level 144 mg/dL (70-99) H Calcium Level 8.7 mg/dL (8.5-10.1) Magnesium Level 1.5 mg/dL (1.8-2.4) L Total Bilirubin 0.1 mg/dL (0.2-1.0) L Aspartate Amino Transferase (AST) 18 U/L (15-37) Alanine Aminotransferase (ALT) 34 U/L (14-59) Alkaline Phosphatase 94 U/L (46-116) Total Protein 6.7 g/dL (6.4-8.2) Albumin 3.4 g/dL (3.4-5.0) Albumin/Globulin Ratio 1.0 (1.0-1.7) Salicylates Level 13.7 mg/dL (2.8-20.0) Salicylate Last Dose Date Unknown Salicylate Last Dose Time Unknown Urine Opiates Screen Neg (NEG) Urine Methadone Screen Neg (NEG) Acetaminophen Level < 2 mcg/ml (10-30) L Acetaminophen Last Dose Date Unknown Acetaminophen Last Dose Time Unknown Urine Barbiturates Neg (NEG) Urine Phencyclidine Screen Neg (NEG) Urine Amphetamine/Methamphetamine Neg (NEG) Urine Benzodiazepines Screen Neg (NEG) Urine Cocaine Screen Neg (NEG) Urine Cannabinoids Screen Neg (NEG) Ethyl Alcohol Level < 10 mg/dL (0-10) Urine Ethyl Alcohol Neg (NEG) Laboratory Tests 02/07/20 14:00 Laboratory Tests 02/07/20 14:00 Vital Signs: Vital Signs Date Time Temp Pulse Resp B/P (MAP) Pulse Ox O2 Delivery O2 Flow Rate FiO2 02/07/20 13:53 98.4 101 20 136/71 (92) 91 Room Air 98.4 EKG: EKG: EKG was done at 1414, heart rate of 103 bpm, sinus tachycardia, no ST segment elevation. EKG was read by this physician. Normal QT interval. Radiology/Procedures: Radiology/Procedures: [facility] [address] [place] [address] IMAGING REPORT Signed PATIENT: DANYEL GARAY SACCOUNT: [id number] : 1975 LOCATION: ER AGE: 44 SEX: F EXAM STATUS: REG ER ORD. PHYSICIAN: LUCY JARRELL DO REASON: found on the floor, acting confused PROCEDURE: CT HEAD WO CONTRAST CT scan of the head without contrast 02/07/2020 Clinical History: Confusion. Technique: Unenhanced, contiguous, 5 mm axial sections were obtained through the head. One or more of the following individualized dose reduction techniques were utilized for this study: 1. Automated exposure control. 2. Adjustment of the mA and/or kV according to patient size. 3. Use of iterative reconstruction technique. Findings: Comparison study is dated 08/12/2019. The ventricles and sulci are within normal limits in size and configuration. No acute parenchymal abnormality is seen. No extra-axial fluid collection is noted. No skull fracture is seen. Impression: No acute intracranial abnormality is seen. Electronically signed by: Mathew Samano MD (02/07/2020 3:53 PM) [id number] DICTATED and SIGNED BY: MATHEW SAMANO MD DATE: 02/07/20 1553 Course & Med Decision Making: Course & Med Decision Making Pertinent Labs and Imaging studies reviewed. (See chart for details) Patient is a 44-year-old female who was evaluated in the ER today due to altered mental status due to accidental overdose of her Flexeril. At the time of discharge patient was awake alert oriented, she was back to her normal baseline. Patient and were called, she will be taken home by her . Patient denies suicidal ideation. Patient has history of chronic back pain, she is being managed by pain management. Dragon Disclaimer: Miriam Disclaimer: This electronic medical record was generated, in whole or in part, using a voice recognition dictation system. Departure Departure Impression: Primary Impression: Drug ingestion, accidental Disposition: HOME, SELF-CARE Condition: IMPROVED Referrals: NO PCP (PCP) FOLLOW UP WITH YOUR DOCTOR NEXT WEEK NEEDED Patient Instructions: Overdose, Accidental LUCY JARRELL DO February 07, 2020 15:06
--- NOTE | 2020-02-07 15:56 | RAD ---
CT scan of the head without contrast 02/07/2020 Clinical History: Confusion. Technique: Unenhanced, contiguous, 5 mm axial sections were obtained through the head. One or more of the following individualized dose reduction techniques were utilized for this study: 1. Automated exposure control. 2. Adjustment of the mA and/or kV according to patient size. 3. Use of iterative reconstruction technique. Findings: Comparison study is dated 08/12/2019. The ventricles and sulci are within normal limits in size and configuration. No acute parenchymal abnormality is seen. No extra-axial fluid collection is noted. No skull fracture is seen. Impression: No acute intracranial abnormality is seen. Electronically signed by: Mathew Kingsley MD (02/07/2020 3:53 PM) [id number]
[2020-02-07 18:00] VITALS: BP 129/65
== END 2020-02-07 18:01 | disposition home or self-care (01) ==
LOC: ER 13:03
DX: T48.1X1A Poisoning by skeletal muscle relaxants [neuromuscular blocking agents], accidental (unintentional), initial encounter (principal); R41.82 Altered mental status, unspecified; J44.9 Chronic obstructive pulmonary disease, unspecified; E11.9 Type 2 diabetes mellitus without complications; E78.00 Pure hypercholesterolemia, unspecified; I10 Essential (primary) hypertension; R00.0 Tachycardia, unspecified; F17.200 Nicotine dependence, unspecified, uncomplicated; G89.29 Other chronic pain; Y92.89 Other specified places as the place of occurrence of the external cause
CPT/HCPCS: 36415; 70450; 80053; 80307; 80329; 81001; 83735; 85025; 93005; 96361; 96365; 96366; 99285; G0480; J3475; J7030

== ENCOUNTER 2020-04-03 20:46 | Emergency (ER) | payer BC ==
[~2020-04-03] VITALS: Ht 162.6 cm; Wt 120.0 kg
--- NOTE | 2020-04-03 21:10 | PHYS DOC ---
Past Medical History Past Medical History: COPD, Diabetes-Type II, High Cholesterol, Hypertension, Other Additional Past Medical Histor: sleep apnea,CHRONIC LOWER BACK PAIN/SLIPPED DISCS/TACHYCARDIA Past Surgical History: , Hysterectomy, Other Additional Past Surgical Histo: cervical cancer, R hand Smoking Status: Current Every Day Smoker Alcohol Use: None Drug Use: None General Adult EDM: Chief Complaint: BACK PAIN - NO INJURY HPI: HPI: Patient is a 45 year old female presents via EMS with reports of acute on chronic low back pain which started at 1900. Reports tried to get in bath tub but continued to have pain. Denies loss of bowel/bladder. Denies dysuria or hematuria. Denies fever/chills. Denies trauma. Denies rash. Review of Systems: Review of Systems: Constitutional: Denies fever or chills Eyes: Denies redness or eye pain HENT: Denies nasal congestion or sore throat Respiratory: Denies cough or shortness of breath Cardiovascular: Denies chest pain or palpitations GI: Denies abdominal pain, nausea, or vomiting : Denies dysuria or hematuria Musculoskeletal: Reports back pain; denies joint pain Integument: Denies rash or skin lesions Neurologic: Denies headache, focal weakness or sensory changes; denies loss of b owel or bladder Complete systems were reviewed and found to be within normal limits, except as documented in this note. Current Medications: Current Medications Medications (Trade) Dose Ordered Sig/Xiao Start Time Stop Time Status Last Admin Dose Admin Acetaminophen/ Hydrocodone Bitart (Lortab 7.5/325) 1 tab 1X ONCE 04/03/20 21:15 04/03/20 21:16 UNV Dexamethasone (Decadron) 10 mg 1X ONCE 04/03/20 21:15 04/03/20 21:16 UNV Ketorolac Tromethamine (Toradol 30mg Vial) 30 mg 1X ONCE 04/03/20 21:15 04/03/20 21:16 UNV Orphenadrine Citrate (Norflex) 60 mg 1X ONCE 04/03/20 21:15 04/03/20 21:16 UNV Allergies: Allergies: Allergies Coded Allergies Type Severity Reaction Last Updated Verified No Known Drug Allergies 03/31/18 No Physical Exam: PE: Constitutional: Well developed, well nourished, no acute distress, non-toxic a ppearance HENT: Normocephalic, atraumatic Eyes: Conjunctiva normal, no discharge Neck: Normal range of motion, supple Lungs & Thorax: No respiratory distress, equal chest rise and fall Abdomen: Soft, no tenderness Skin: Warm, dry, no erythema, no rash Back: No midline tenderness, right low paraspinal tenderness, no CVA tenderness Extremities: No tenderness, ROM intact, no edema Neurologic: Alert and oriented X 3, no focal deficits noted Psychologic: Affect normal, judgment normal EKG: EKG: [] Radiology/Procedures: Radiology/Procedures: [] Course & Med Decision Making: Course & Med Decision Making Patient presents via EMS with report of acute on chronic low back pain. Hx that she follows with pain management. Patient reports she is currently under a pain contract. [facility] report noted patient with recent tramadol prescription in the last week. No history of recent trauma. No midline tenderness. Denies loss of bowel/bladder. ICE applied. Pain addressed. Patient stable for discharge with outpatient follow-up with PCP/pain management. Discussed findings and plan with patient, who acknowledges understanding and agreement. Miriam Disclaimer: Miriam Disclaimer: This electronic medical record was generated, in whole or in part, using a voice recognition dictation system. 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 Ice area 20 minutes on then leave off for the next 20 minutes. May repeat several times daily for the next few days. Justicifation of Admission Dx: Justifications for Admission: Justification of Admission Dx: N/A OLY SANCHEZ DO Apr 03, 2020 21:10
[2020-04-03] MEDS ORDERED: KETOROLAC 30 MG/ML VIAL. IM ONE (21:15)
[2020-04-03] MEDS ORDERED: ORPHENADRINE CITRATE 60 MG/2 ML VIAL. IM ONE (21:15)
[2020-04-03] MEDS ORDERED: DEXAMETHASONE 4 MG TABLET PO ONE (21:15)
[2020-04-03] MEDS ORDERED: HYDROcodone/APAP 7.5/325MG 1 TAB TABLET PO ONE (21:15)
[2020-04-03 21:30] VITALS: BP 139/78
== END 2020-04-03 21:42 | disposition home or self-care (01) ==
LOC: ER 20:46
DX: G89.29 Other chronic pain (principal); M54.5 Low back pain; J44.9 Chronic obstructive pulmonary disease, unspecified; E11.9 Type 2 diabetes mellitus without complications; E78.00 Pure hypercholesterolemia, unspecified; I10 Essential (primary) hypertension; F17.200 Nicotine dependence, unspecified, uncomplicated; Z90.710 Acquired absence of both cervix and uterus; Z98.890 Other specified postprocedural states
CPT/HCPCS: 96372; 99284; J1885; J2360

== ENCOUNTER 2020-04-29 16:56 | Emergency (ER) | payer BC ==
[~2020-04-29] VITALS: Ht 162.6 cm; Wt 113.6 kg
[2020-04-29] MEDS ORDERED: HYDROcodone/APAP 5/325MG 1 TAB TABLET PO ONE (18:15)
[2020-04-29] MEDS ORDERED: CYCLOBENZAPRINE 10 MG TABLET. PO ONE (18:15)
[2020-04-29] MEDS ORDERED: ORPH100T PO (18:27)
--- NOTE | 2020-04-29 18:27 | PHYS DOC ---
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 Patient denies any known injury. Denies any loss of bowel/bladder function. She states she follows up with her PCP who sent her to a pain clinic but the pain clinic doctor [place] the [place]. She states she is currently on Lyrica Review of Systems: Review of Systems: Constitutional: Denies fever or chills. [] GI: Denies abdominal pain, nausea, vomiting, bloody stools or diarrhea. [] : Denies dysuria. [] Musculoskeletal: Reports low back pain Integument: Denies rash. [] Neurologic: Denies headache, focal weakness or sensory changes. [] Psychiatric: Denies depression or anxiety. [] Heart Score: Risk Factors: Risk Factors: DM, Current or recent (<one month) smoker, HTN, HLP, family history of CAD, obesity. Risk Scores: Score 0 - 3: 2.5% MACE over next 6 weeks - Discharge Home Score 4 - 6: 20.3% MACE over next 6 weeks - Admit for Clinical Observation Score 7 - 10: 72.7% MACE over next 6 weeks - Early Invasive Strategies Current Medications: Current Medications Medications (Trade) Dose Ordered Sig/Xiao Start Time Stop Time Status Last Admin Dose Admin Acetaminophen/ Hydrocodone Bitart (Lortab 5/325) 1 tab 1X ONCE 04/29/20 18:15 04/29/20 18:16 DC Cyclobenzaprine HCl (Flexeril) 10 mg 1X ONCE 04/29/20 18:15 04/29/20 18:16 DC Allergies: Allergies: Allergies Coded Allergies Type Severity Reaction Last Updated Verified No Known Drug Allergies 03/31/18 No Physical Exam: PE: Constitutional: Well developed, well nourished, no acute distress, non-toxic appearance. [] Skin: Warm, dry, no erythema, no rash. [] Back: No tenderness, no CVA tenderness. [] Extremities: No tenderness, no cyanosis, no clubbing, ROM intact, no edema. [] Neurologic: Alert and oriented X 3, normal motor function, normal sensory function, no focal deficits noted. [] Psychologic: Flat affect, patient crying Current Patient Data: Vital Signs: Vital Signs Date Time Temp Pulse Resp B/P (MAP) Pulse Ox O2 Delivery O2 Flow Rate FiO2 04/29/20 17:35 98.0 131 12 188/104 (132) 96 Room Air 98.0 EKG: EKG: [] Radiology/Procedures: Radiology/Procedures: [] Course & Med Decision Making: Course & Med Decision Making Pertinent Labs and Imaging studies reviewed. (See chart for details) This is a 45-year-old female patient presenting to the ED today with chronic low back pain. Patient was referred by her PCP to the pain clinic. She states the pain clinic doctor went [place] the country. She is currently on Lyrica. Patient was discharged on Norflex. Instructed to continue following up with her PCP on the pain clinic. Dragon Disclaimer: CrossCore Disclaimer: This electronic medical record was generated, in whole or in part, using a voice recognition dictation system. Departure Departure Impression: Primary Impression: Back pain Qualified Codes: M54.42 - Lumbago with sciatica, left side; M54.41 - Lumbago with sciatica, right side; G89.29 - Other chronic pain Disposition: 01 HOME, SELF-CARE Condition: STABLE Referrals: MARLENE AVILA MD (PCP) Follow-up as soon as possible Patient Instructions: Back Pain, Adult Additional Instructions: You were evaluated in the emergency room for chronic back pain. Please follow- up with your primary care doctor as well as the pain clinic. Scripts Orphenadrine Citrate (ORPHENADRINE CITRATE) 100 Mg Tablet.er 1 TAB PO BID, #20 TAB 0 Refills Prov: CLAYTON RIVERA APRN 04/29/20 Justicifation of Admission Dx: Justifications for Admission: Justification of Admission Dx: N/A CLAYTON RIVERA APRN Apr 29, 2020 18:27
[2020-04-29 18:39] VITALS: BP 165/87
== END 2020-04-29 18:39 | disposition home or self-care (01) ==
LOC: ER 16:56
DX: M54.41 Lumbago with sciatica, right side (principal); M54.42 Lumbago with sciatica, left side; G89.29 Other chronic pain; J44.9 Chronic obstructive pulmonary disease, unspecified; E11.9 Type 2 diabetes mellitus without complications; E78.00 Pure hypercholesterolemia, unspecified; I10 Essential (primary) hypertension; F17.200 Nicotine dependence, unspecified, uncomplicated; Z90.710 Acquired absence of both cervix and uterus; Z98.890 Other specified postprocedural states
CPT/HCPCS: 99283

== ENCOUNTER 2020-05-05 19:47 | Emergency (ER) | payer BC ==
[~2020-05-05] VITALS: Ht 162.6 cm; Wt 113.6 kg
[2020-05-05 20:28] VITALS: BP 151/87
--- NOTE | 2020-05-05 20:38 | PHYS DOC ---
Past Medical History Past Medical History: COPD, Diabetes-Type II, High Cholesterol, Hypertension, Sciatica, Other Additional Past Medical Histor: sleep apnea,CHRONIC LOWER BACK PAIN/SLIPPED DISCS/TACHYCARDIA Past Surgical History: , Hysterectomy, Other Additional Past Surgical Histo: cervical cancer, R hand Smoking Status: Current Every Day Smoker Alcohol Use: None Drug Use: None General Adult EDM: Chief Complaint: BACK PAIN - NO INJURY HPI: HPI: Patient is a 45 year old female who presents to the emergency department via EMS today with complaints of an exacerbation of her chronic lower back pain. Patient reports that she has a pain management doctor who she called and he advised her to double up on her pain medication. Patient states that she took Tylenol and Percocet 5-325 mg tablets at home with no relief in her symptoms. She denies any recent injury or fall. She denies any dysuria, aminuria, difficulty voiding, hematuria, saddle anesthesia, or loss of bowel/bladder control. She denies any fever, shortness of breath, or chest pain. Upon arrival to the room the patient was sleeping in her wheelchair. She reports that her back is feeling much better but still continues to have pain at a 5 out of 10 on the pain scale and would like some additional pain medication. Review of Systems: Review of Systems: Constitutional: Denies fever or chills. [] Respiratory: Denies cough or shortness of breath. [] Cardiovascular: Denies chest pain GI: Denies saddle anesthesia, abdominal pain, nausea, or vomiting : See HPI Musculoskeletal: See HPI Integument: Denies rash. [] Neurologic: Denies focal weakness or sensory changes. [] Psychiatric: Denies depression or anxiety. [] Heart Score: Risk Factors: Risk Factors: DM, Current or recent (<one month) smoker, HTN, HLP, family history of CAD, obesity. Risk Scores: Score 0 - 3: 2.5% MACE over next 6 weeks - Discharge Home Score 4 - 6: 20.3% MACE over next 6 weeks - Admit for Clinical Observation Score 7 - 10: 72.7% MACE over next 6 weeks - Early Invasive Strategies Allergies: Allergies: Allergies Coded Allergies Type Severity Reaction Last Updated Verified No Known Drug Allergies 03/31/18 No Physical Exam: PE: Constitutional: Well developed, well nourished, obese, appears fatigued HENT: Normocephalic, atraumatic, bilateral external ears normal, nose normal. [] Eyes: PERRLA, EOMI, conjunctiva normal, no discharge. [] Neck: Normal range of motion, no stridor. [] Cardiovascular:Heart rate regular rhythm Lungs & Thorax: Respirations even and unlabored, no retractions, no respiratory distress Back: Low back pain, no deformity Skin: Warm, dry, no erythema, no rash. [] Extremities: No cyanosis, no edema. [] Neurologic: Alert and oriented X 3, no focal deficits noted. [] Psychologic: Affect normal, judgement normal, mood normal. [] Current Patient Data: Vital Signs: Vital Signs Date Time Temp Pulse Resp B/P (MAP) Pulse Ox O2 Delivery O2 Flow Rate FiO2 05/05/20 20:28 98.3 16 151/87 (108) 97 Room Air 98.3 EKG: EKG: [] Radiology/Procedures: Radiology/Procedures: [] Course & Med Decision Making: Course & Med Decision Making Pertinent Labs and Imaging studies reviewed. (See chart for details) 45-year-old female presents emergency room with complaints of acute lower back pain. Upon arrival to the patient's room patient was found to be asleep in her wheelchair with an oxygen saturation of 92 and respirations of 14. Upon arousal the patient reported that her pain medication must of kicked in and reports that she is much more comfortable she currently rates the pain a 5 out of 10 I advised the patient that no narcotics can be given as the patient has a pain management contract in place. I informed the patient that I also would not be prescribing any muscle relaxants due to the patient's drowsy condition and current oxygenation status. I offered the patient a shot of IM Toradol and encouraged her to follow-up with her pain management doctor for further management of her chronic pain. Patient verbalized an understanding of home care, medications, follow-up, and return to ED instructions and was in agreement with the plan of care. [] Dragon Disclaimer: Dragon Disclaimer: This electronic medical record was generated, in whole or in part, using a voice recognition dictation system. Departure Departure Impression: Primary Impression: Chronic lower back pain Qualified Codes: M54.5 - Low back pain; G89.29 - Other chronic pain Disposition: HOME, SELF-CARE Condition: STABLE Referrals: MARLENE AVILA MD (PCP) Patient Instructions: Chronic Back Pain Additional Instructions: Follow your medication regimen that was prescribed by pain management. Call your pain management doctor in the appointment in the morning and advised them that you were seen in the ER and given Toradol. Return to the ER if symptoms worsen or you develop a fever. Justicifation of Admission Dx: Justifications for Admission: Justification of Admission Dx: N/A REYNA PRINGLE FUR DESIGNER May 05, 2020 20:38
[2020-05-05 20:45] LABS: BILIRUBIN,URINE NEGATIVE (NEG); CLARITY,URINE CLEAR; COLOR,URINE YELLOW; NITRITE,URINE NEGATIVE (NEG); PH,URINE 7.5 (<5.0-8.0); PROTEIN,URINE NEGATIVE (NEG-TRACE)
[2020-05-05 20:50] LABS: RBC,URINE 0 /HPF (0-2); WBC,URINE RARE /HPF (0-4)
[2020-05-05 20:51] LABS: BACTERIA,URINE FEW /HPF (0-FEW); SQUAMOUS EPITHELIAL CELL,UR MANY /LPF; YEAST,URINE PRESENT /HPF
[2020-05-05] MEDS ORDERED: KETOROLAC 30 MG/ML VIAL. IM ONE (21:15)
== END 2020-05-05 21:32 | disposition home or self-care (01) ==
LOC: ER 19:47
DX: G89.29 Other chronic pain (principal); M54.5 Low back pain; R53.83 Other fatigue; J44.9 Chronic obstructive pulmonary disease, unspecified; E11.9 Type 2 diabetes mellitus without complications; E78.00 Pure hypercholesterolemia, unspecified; I10 Essential (primary) hypertension; F17.200 Nicotine dependence, unspecified, uncomplicated; Z90.710 Acquired absence of both cervix and uterus; Z98.890 Other specified postprocedural states
CPT/HCPCS: 81001; 96372; 99283; J1885

== ENCOUNTER 2020-05-15 16:38 | Inpatient (IN) | payer BC ==
[~2020-05-15] VITALS: Ht 162.6 cm; Wt 105.2 kg
[2020-05-15] MEDS ORDERED: IV NORMAL SALINE 1000ML BAG 1,000 ML IV ONE (17:00)
[2020-05-15 17:18] LABS: BASO # 0.1 x10^3/uL (0.0-0.2); BASO % 1 % (0-3); EOS # 0.1 x10^3/uL (0.0-0.7); EOS % 1 % (0-3); HEMATOCRIT 34.9 % (36.0-47.0); HEMOGLOBIN 11.6 g/dL (12.0-15.5); LYMPH # 1.2 x10^3/uL (1.0-4.8); LYMPH % 11 % (24-48); MEAN CORPUSCULAR HEMOGLOBIN 30 pg (25-35); MEAN CORPUSCULAR HGB CONC 33 g/dL (31-37); MEAN CORPUSCULAR VOLUME 91 fL (79-100); MONO # 0.7 x10^3/uL (0.0-1.1); MONO % 6 % (0-9); NEUT # 9.4 x10^3/uL (1.8-7.7); NEUT % 81 % (31-73); PLATELET COUNT 421 x10^3/uL (140-400); RED BLOOD COUNT 3.84 x10^6/uL (3.50-5.40); RED CELL DISTRIBUTION WIDTH 13.6 % (11.5-14.5); WHITE BLOOD COUNT 11.5 x10^3/uL (4.0-11.0)
--- NOTE | 2020-05-15 17:24 | RAD ---
EXAMINATION: CHEST AP ONLY CLINICAL HISTORY: Syncope EXAM DATE/TIME: 05/15/2020 4:46 PM COMPARISON: 01/11/2020 FINDINGS: Lines, tubes, and devices: None. Cardiomediastinal silhouette: Within normal limits. Lungs and pleura: No evidence of focal airspace consolidation or pleural effusion. Pulmonary vasculature unremarkable. Bones and soft tissues: Degenerative changes of the thoracic spine. Left shoulder calcific tendinosis versus joint body. IMPRESSION: No evidence of acute cardiopulmonary abnormality or significant interval change. Electronically signed by: Bg Mackenzie DO (05/15/2020 5:21 PM) [id number]
[2020-05-15 17:27] LABS: CREATININE 2.8 mg/dL (0.6-1.0); GFR 18.3; POTASSIUM 3.4 mmol/L (3.5-5.1)
--- NOTE | 2020-05-15 17:32 | RAD ---
Left ankle 3 views: Reason for examination: Syncope. Casting material is present at the ankle. This obscures some of the soft tissue and bone detail. There is an oblique fracture of the distal fibula just above the level of the ankle mortise which shows approximately 3 mm displacement. Tibia appears to be intact. Talus and calcaneus appear to be intact. IMPRESSION: Oblique fracture at the distal fibula with approximately 3 mm displacement. Electronically signed by: Yaa Grimaldo MD (05/15/2020 5:29 PM) DENNYS
[2020-05-15 17:35] LABS: ALBUMIN 2.9 g/dL (3.4-5.0); ALBUMIN/GLOBULIN RATIO 0.7 (1.0-1.7); TOTAL BILIRUBIN 0.6 mg/dL (0.2-1.0); TOTAL PROTEIN 7.2 g/dL (6.4-8.2)
[2020-05-15 17:39] LABS: PREG TEST PT QUAL NEGATIVE (NEG)
--- NOTE | 2020-05-15 18:21 | RAD ---
Exam: Left knee 3 views INDICATION: Knee pain TECHNIQUE: Frontal, lateral and oblique views of the left knee Comparisons: None FINDINGS: Evaluation limited secondary to overlying splint material. Bone mineralization is normal. No acute or healed fractures. Soft tissues are unremarkable. Joint spaces are well-maintained. IMPRESSION: No acute fractures identified. Limitations as described above. Electronically signed by: Irma Marroquin MD (05/15/2020 6:19 PM) [id number]
--- NOTE | 2020-05-15 18:48 | RAD ---
Exam: CT left lower extremity without contrast INDICATION: Evaluate for ankle fracture TECHNIQUE: Sequential axial images through the left ankle obtained without IV contrast. Sagittal and coronal reformatted images were reconstructed from the axial data and reviewed. Comparisons: Ankle radiographs same day FINDINGS: There is redemonstration of a mildly comminuted obliquely oriented fracture through the distal fibula. Small bone fragments are noted at the tibiotalar joint space. No other acute fracture is seen. Bone mineralization is normal. There is soft tissues swelling noted surrounding the fracture site. Mild edema is also noted overlying the medial malleolus. IMPRESSION: Mildly comminuted obliquely or acute fractures of the distal fibula with surrounding soft tissue swelling. Exposure: One or more of the following in the visualized dose reduction techniques were utilized for this examination: 1. Automated exposure control 2. Adjustment of the MA and/or KV according to patient size 3. Use of iterative of reconstructive technique Electronically signed by: Irma Marroquin MD (05/15/2020 6:45 PM) [id number]
--- NOTE | 2020-05-15 18:48 | RAD ---
CT head without contrast: Reason for examination: Fell from syncope. Comparison is made to previous study dated 02/07/2020. Axial images were obtained through the brain. No contrast was administered. Reconstruction was performed in coronal plane. Ventricular systems are symmetric and not dilated. No midline shift is seen. There is no evidence of intracranial hemorrhage, infarct, mass or edema. No abnormalities of seen at the orbits. The paranasal sinuses and mastoid air cells are clear. No abnormality seen in the skull. IMPRESSION: No acute intracranial abnormality seen. CT cervical spine without contrast: Helical images were obtained through the cervical spine from skull base through the thoracic apices with no contrast administered. Reconstruction was performed in sagittal and coronal planes. C1 ring is intact. The odontoid process appears to be intact and normally centered between the lateral masses of C1. The cervical vertebral bodies are normally aligned anteriorly and posteriorly. No acute fracture or subluxation is seen. Posterior elements are intact. The intervertebral discs are maintained. There is no spinal stenosis. Prevertebral soft tissues are normal. IMPRESSION: No acute abnormality evident in the cervical spine. Exposure: One or more of the following individualized dose reduction techniques were utilized for this examination: 1. Automated exposure control 2. Adjustment of the mA and/or kV according to patient size 3. Use of iterative reconstruction technique. Electronically signed by: Yaa Grimaldo MD (05/15/2020 6:46 PM) DENNYS
--- NOTE | 2020-05-15 20:08 | PHYS DOC ---
Past Medical History Past Medical History: COPD, Diabetes-Type II, High Cholesterol, Hypertension, Sciatica, Other Additional Past Medical Histor: sleep apnea,CHRONIC LOWER BACK PAIN/SLIPPED DISCS/TACHYCARDIA Past Surgical History: , Hysterectomy, Other Additional Past Surgical Histo: cervical cancer, R hand Smoking Status: Current Every Day Smoker Alcohol Use: None Drug Use: None General Adult EDM: Chief Complaint: MECHANICAL FALL HPI: HPI: The history was obtained from the patient. Patient is a 45-year-old female with PMH COPD, diabetes, hyperlipidemia, hypertension who presents with a chief complaint of left ankle pain status post syncope. Patient states over the past 2 days she has had multiple syncopal events. States yesterday she lost full consciousness. States today she became lightheaded and twisted her left ankle. She states she has not been able to bear weight on left ankle since the fall. Unsure whether she struck her head or not. Denies any chest pain or shortness of breath. Denies any feelings of palpitations. She does note some lightheadedness symptoms prior to passing out. States this never happened bef ore. Denies vomiting. Denies abdominal pain. Denies back pain. Denies fever or cough. No other complaints. Review of Systems: Review of Systems: Constitutional: Denies fever or chills. [] Eyes: Denies change in visual acuity. [] HENT: Denies nasal congestion or sore throat. [] Respiratory: Denies cough or shortness of breath. [] Cardiovascular: Positive for syncope GI: Denies abdominal pain, nausea, vomiting, bloody stools or diarrhea. [] : Denies dysuria. [] Musculoskeletal: Positive for left ankle pain Integument: Denies rash. [] Neurologic: Denies headache, focal weakness or sensory changes. [] Endocrine: Denies polyuria or polydipsia. [] Lymphatic: Denies swollen glands. [] Psychiatric: Denies depression or anxiety. [] Heart Score: Risk Factors: Risk Factors: DM, Current or recent (<one month) smoker, HTN, HLP, family history of CAD, obesity. Risk Scores: Score 0 - 3: 2.5% MACE over next 6 weeks - Discharge Home Score 4 - 6: 20.3% MACE over next 6 weeks - Admit for Clinical Observation Score 7 - 10: 72.7% MACE over next 6 weeks - Early Invasive Strategies Current Medications: Current Medications Medications (Trade) Dose Ordered Sig/Xiao Start Time Stop Time Status Last Admin Dose Admin Sodium Chloride 1,000 ml @ 1,000 mls/hr 1X ONCE 05/15/20 17:00 05/15/20 17:59 DC 05/15/20 17:21 1,000 MLS/HR Allergies: Allergies: Allergies Coded Allergies Type Severity Reaction Last Updated Verified No Known Drug Allergies 03/31/18 No Physical Exam: PE: Constitutional: Well developed, well nourished, no acute distress, non-toxic appearance. [] HENT: Normocephalic, atraumatic, bilateral external ears normal, oropharynx moist, no oral exudates, nose normal. [] Eyes: PERRLA, EOMI, conjunctiva normal, no discharge. [] Neck: Normal range of motion, no tenderness, supple, no stridor. [] Cardiovascular:Heart rate regular rhythm, no murmur [] Lungs & Thorax: Bilateral breath sounds clear to auscultation [] Abdomen: Bowel sounds normal, soft, no tenderness, no masses, no pulsatile masses. [] Skin: Warm, dry, no erythema, no rash. [] Back: No tenderness, no CVA tenderness. [] Extremities: Swelling noted to the left ankle. No obvious deformity. Surrounding ecchymosis noted. +2-4 DP pulses on the left. No proximal fibular head tenderness. Neurologic: Alert with intact cognitive function. No aphasia, dysarthria, or neglect. GCS 15. Pupils 3 mm briskly reactive b/l. No APD present. Cranial nerves 2-12 grossly intact; no facial asymmetry present, tongue midline, shoulder shrugging strength intact. Strength 5/5 and symmetric throughout. Light touch sensation intact throughout. Cerebellar testing appropriate without evidence of dysdiadochokinesia. DTR's 2+ in all 4 extremities. Negative pronator drift bilaterally. Gait deferred due to pain Psychologic: Affect normal, judgement normal, mood normal. [] Current Patient Data: Labs: Laboratory Tests Test 05/15/20 17:05 White Blood Count 11.5 x10^3/uL (4.0-11.0) H Red Blood Count 3.84 x10^6/uL (3.50-5.40) Hemoglobin 11.6 g/dL (12.0-15.5) L Hematocrit 34.9 % (36.0-47.0) L Mean Corpuscular Volume 91 fL (79-100) Mean Corpuscular Hemoglobin 30 pg (25-35) Mean Corpuscular Hemoglobin Concent 33 g/dL (31-37) Red Cell Distribution Width 13.6 % (11.5-14.5) Platelet Count 421 x10^3/uL (140-400) H Neutrophils (%) (Auto) 81 % (31-73) H Lymphocytes (%) (Auto) 11 % (24-48) L Monocytes (%) (Auto) 6 % (0-9) Eosinophils (%) (Auto) 1 % (0-3) Basophils (%) (Auto) 1 % (0-3) Neutrophils # (Auto) 9.4 x10^3/uL (1.8-7.7) H Lymphocytes # (Auto) 1.2 x10^3/uL (1.0-4.8) Monocytes # (Auto) 0.7 x10^3/uL (0.0-1.1) Eosinophils # (Auto) 0.1 x10^3/uL (0.0-0.7) Basophils # (Auto) 0.1 x10^3/uL (0.0-0.2) Sodium Level 129 mmol/L (136-145) L Potassium Level 3.4 mmol/L (3.5-5.1) L Chloride Level 94 mmol/L (98-107) L Carbon Dioxide Level 23 mmol/L (21-32) Anion Gap 12 (6-14) Blood Urea Nitrogen 36 mg/dL (7-20) H Creatinine 2.8 mg/dL (0.6-1.0) H Estimated GFR (Cockcroft-Gault) 18.3 BUN/Creatinine Ratio 13 (6-20) Glucose Level 433 mg/dL (70-99) H Calcium Level 9.0 mg/dL (8.5-10.1) Total Bilirubin 0.6 mg/dL (0.2-1.0) Aspartate Amino Transferase (AST) 19 U/L (15-37) Alanine Aminotransferase (ALT) 32 U/L (14-59) Alkaline Phosphatase 121 U/L (46-116) H Troponin I Quantitative < 0.017 ng/mL (0.000-0.055) Total Protein 7.2 g/dL (6.4-8.2) Albumin 2.9 g/dL (3.4-5.0) L Albumin/Globulin Ratio 0.7 (1.0-1.7) L Serum Test, Qualitative Negative (NEG) Laboratory Tests 05/15/20 17:05 Laboratory Tests 05/15/20 17:05 Vital Signs: Vital Signs Date Time Temp Pulse Resp B/P (MAP) Pulse Ox O2 Delivery O2 Flow Rate FiO2 05/15/20 17:06 125 97 05/15/20 16:40 97.7 19 Room Air 97.7 EKG: EKG: EKG consistent with sinus tachycardia. Ventricular rate of 120 bpm. Right axis noted. Intervals normal. No acute ischemic changes appreciated. [] Radiology/Procedures: Radiology/Procedures: [] [address] [place] [address] IMAGING REPORT Signed PATIENT: DANYEL GARAY SACCOUNT: [id number] : 1975 LOCATION: ER AGE: 45 SEX: F EXAM STATUS: REG ER ORD. PHYSICIAN: YFN JAY DO REASON: eval for ankle fx PROCEDURE: CT LOWER EXTREMITY WO LEFT Exam: CT left lower extremity without contrast INDICATION: Evaluate for ankle fracture TECHNIQUE: Sequential axial images through the left ankle obtained without IV contrast. Sagittal and coronal reformatted images were reconstructed from the axial data and reviewed. Comparisons: Ankle radiographs same day FINDINGS: There is redemonstration of a mildly comminuted obliquely oriented fracture through the distal fibula. Small bone fragments are noted at the tibiotalar joint space. No other acute fracture is seen. Bone mineralization is normal. There is soft tissues swelling noted surrounding the fracture site. Mild edema is also noted overlying the medial malleolus. IMPRESSION: Mildly comminuted obliquely or acute fractures of the distal fibula with surrounding soft tissue swelling. Exposure: One or more of the following in the visualized dose reduction techniques were utilized for this examination: 1. Automated exposure control 2. Adjustment of the MA and/or KV according to patient size 3. Use of iterative of reconstructive technique Electronically signed by: Irma Estes MD (05/15/2020 6:45 PM) [id number] DICTATED and SIGNED BY: IRMA ESTES MD DATE: 05/15/201844 Course & Med Decision Making: Course & Med Decision Making Pertinent Labs and Imaging studies reviewed. (See chart for details) [] Patient is a 45-year-old female presents with chief complaint of syncope and left ankle pain. Initial vital signs notable for tachycardia. Exam noted above. During nursing triage assessment patient's ankle did spontaneously dislocate. This was quickly reduced at bedside. She was placed in a posterior short and stirrup splint. CT imaging reveals a distal fibula fracture. She may have significant ligamentous instability. EKG consistent with sinus tachycardia. Basic labs were obtained and were grossly unremarkable. I do feel the patient would benefit from hospitalization for further work-up of her syncope. She is in agreement with this. Dragon Disclaimer: Dragon Disclaimer: This electronic medical record was generated, in whole or in part, using a voice recognition dictation system. Departure Departure Impression: Primary Impression: Syncopal episodes Qualified Codes: R55 - Syncope and collapse Additional Impression: Left fibular fracture Qualified Codes: S82.832A - Other fracture of upper and lower end of left fibula, initial encounter for closed fracture Disposition: ADMITTED INPATIENT Condition: GOOD Referrals: MARLENE AVILA MD (PCP) Justicifation of Admission Dx: Justifications for Admission: Justification of Admission Dx: N/A Comments: syncope, left fibula fracture YFN JAY DO May 15, 2020 20:08
[2020-05-15 22:00] VITALS: BP 119/66
[2020-05-15] MEDS ORDERED: GABA300C9 PO (22:49)
[2020-05-15] MEDS ORDERED: TRAM50TA PO (22:49)
[2020-05-16 02:39] VITALS: BP 97/49
--- NOTE | 2020-05-16 06:08 | EKG ---
[facility] [address] [place] [address] Test Date: 2020-05-15 Test Time: 17:23:11 Pat Name: DANYEL GARAY Department: Room: Gender: F Newcomer Hostess: : 1975 Requested By: YFN JAY Order Number: [id number] Reading MD: Measurements Intervals [place] Rate: 120 P: 244 CO: 132 QRS: 136 QRSD: 94 T: 118 QT: 312 QTc: 446 Interpretive Statements SINUS TACHYCARDIA ABNORMAL RIGHT AXIS DEVIATION T ABNORMALITY IN HIGH LATERAL LEADS ABNORMAL ECG RI6.02 No previous ECG available for comparison
[2020-05-16 06:38] LABS: BASO % 0 % (0-3); EOS # 0.2 x10^3/uL (0.0-0.7); EOS % 2 % (0-3); HEMOGLOBIN 12.3 g/dL (12.0-15.5); LYMPH # 1.5 x10^3/uL (1.0-4.8); LYMPH % 21 % (24-48); MEAN CORPUSCULAR HEMOGLOBIN 31 pg (25-35); MEAN CORPUSCULAR HGB CONC 34 g/dL (31-37); MEAN CORPUSCULAR VOLUME 91 fL (79-100); MONO # 0.6 x10^3/uL (0.0-1.1); MONO % 8 % (0-9); NEUT % 68 % (31-73); PLATELET COUNT 409 x10^3/uL (140-400); RED BLOOD COUNT 3.98 x10^6/uL (3.50-5.40); RED CELL DISTRIBUTION WIDTH 13.8 % (11.5-14.5); WHITE BLOOD COUNT 7.3 x10^3/uL (4.0-11.0)
[2020-05-16 06:51] LABS: CALCIUM 9.2 mg/dL (8.5-10.1)
[2020-05-16 06:53] LABS: POTASSIUM 2.8 mmol/L (3.5-5.1)
[2020-05-16 07:30] VITALS: BP 133/76
[2020-05-16] MEDS ORDERED: POTASSIUM CHLORIDE 20 MEQ TABLET.ER. PO ONE (07:45)
--- NOTE | 2020-05-16 08:25 | CONS ---
DATE OF CONSULTATION: 05/16/2020 ORTHOPEDIC CONSULTATION REQUESTING PHYSICIAN: Paola Guzmán DO REASON FOR CONSULTATION: Left ankle fracture. HISTORY OF PRESENT ILLNESS: The patient is a 45-year-old female who had a syncopal episode and fell apparently twisting her ankle and had ongoing left ankle pain since about 2 days ago. She indicates multiple syncopal events over that past couple of days and does report a loss of consciousness and she has really not been able to bear weight on the left ankle since that time frame. She is unaware of whether she hit her head, but at this time denies any visual changes, neck pain, back pain, radiating pain into the extremities or other joint pain, abdominal pain, and no chest pain or shortness of breath. PAST MEDICAL HISTORY: Significant for type 2 diabetes, COPD, high cholesterol, hypertension, sciatica, chronic low back pain, sleep apnea. PAST SURGICAL HISTORY: Hysterectomy and and surgery on a cervical cancer as well as her right hand. SOCIAL HISTORY: She does smoke every day. Denies alcohol or drug use. FAMILY HISTORY: Noncontributory. ALLERGIES: She has no known drug allergies. MEDICATIONS: List is reviewed. REVIEW OF SYSTEMS: Really noted in the history of present illness, obviously reports left ankle pain. Really no pain in the other joints and no focal weakness, numbness, tingling, chest pain, shortness of breath or other neurologic changes. PHYSICAL EXAMINATION: GENERAL: This is a pleasant, cooperative 45-year-old female, alert and oriented, no acute distress. HEENT: Atraumatic, normocephalic. EXTREMITIES: She has good motion, strength and stability of bilateral shoulders, elbows and wrists with no tenderness on palpation or swelling noted. On examination of the lower extremities, she has normal motion and stability of bilateral hips and knees. Examination of the left ankle reveals tenderness over the distal fibula. She is splinted. She can wiggle her toes. Skin is otherwise intact. She has normal examination of the contralateral right ankle with overall intact motor function, distal pulses, sensation, reflexes, skin in both upper and lower extremities throughout. IMAGING: X-rays show an oblique fracture of the left distal fibula with ankle joint mortise anatomically maintained. IMPRESSION: 1. Nondisplaced left distal fibula fracture. 2. Fall from a syncopal episode with loss of consciousness. TREATMENT PLAN: She is undergoing medical evaluation and is in a cardiac monitored bed currently. I went over with her that this is typically a nonoperatively treated fracture as her alignment is great at first, I am going to call and place orders for a Cam walker boot from [facility] and she can weightbear as tolerated in the boot. I would like to see her back overall in Orthopedic Clinic in about 1 week for repeat examination and x-rays and as long as the fracture remains healing and nondisplaced, I would expect no operative treatment. If there is any displacement, it can certainly be surgically fixed and restored as necessary. LYNN FLOREZ MD DR: BLAKE/arash JOB#: [id number] / [id number]
--- NOTE | 2020-05-16 08:41 | PDOC1 ---
History and Physical Date of Admission Date of Admission DATE: 05/16/20 TIME: 08:32 Identification/Chief Complaint Chief Complaint Syncope, left ankle fracture History of Present Illness History of Present Illness Patient is a 45-year-old female who presents with complaints of syncope and left ankle pain. Patient states that she fell yesterday 3 times at home, the last time being on her porch while she was running up steps. She fell backwards and began complaining of left ankle pain at that time, 8 out of 10. Patient states that she takes both lisinopril and metoprolol every morning, and thinks that she may have taken 2 of lisinopril or 2 of metoprolol yesterday morning, causing her to feel "woozy "all day. Upon arrival in the ER, CT of the left leg showed mildly comminuted oblique or acute fracture of the distal fibula. She was admitted for evaluation of left fibular fracture and syncope evaluation. Past Medical History Cardiovascular: HTN, Hyperlipidemia Pulmonary: COPD Renal/: Other (Cervical cancer) Endocrine: Diabetes Past Surgical History Past Surgical History: , Hysterectomy Family History Family History: High Cholestrol Social History Smoke: 1 pack per day ALCOHOL: none Drugs: None Current Problem List Problem List Problems Medical Problems: (1) Left fibular fracture Status: Acute (2) Syncopal episodes Status: Acute Current Medications Current Medications Current Medications Sodium Chloride 1,000 ml @ 1,000 mls/hr 1X ONCE IV Last administered on 05/15/20at 17:21; Start 05/15/20 at 17:00; Stop 05/15/20 at 17:59; Status DC Potassium Chloride (Klor-Con) 40 meq 1X ONCE PO ; Start 05/16/20 at 07:45; Stop 05/16/20 at 07:46; Status DC Active Scripts Active Orphenadrine Citrate 100 Mg Tablet.er 1 Tab PO BID Ondansetron Odt (Ondansetron) 4 Mg Tab.rapdis 1 Tab PO PRN Q6-8HRS PRN [Percogesic] 1 Tab PO 1X PRN Cyclobenzaprine Hcl 10 Mg Tablet 1 Tab PO TID Robaxin-750 (Methocarbamol) 750 Mg Tablet 1 Tab PO TID PRN [place] 5-325 Tablet (Acetaminophen/Hydrocodone Bitart) 1 Each Tablet 1-2 Tab PO Q4-6HRS PRN Percocet 7.5-325 Mg Tablet (Oxycodone/Acetaminophen) 1 Each Tablet 1 Tab PO PRN Q6HRS PRN 7 Days Tresiba Flextouch U-100 (Insulin Degludec) 100 Unit/1 Ml Insuln.pen 20 Unit SQ DAILY 30 Days Colace (Docusate Sodium) 100 Mg Capsule 100 Mg PO BID Reported Gabapentin 300 Mg Capsule 1 Cap PO TID Tramadol Hcl 50 Mg Tablet 1 Tab PO PRN BID PRN Tradjenta (Linagliptin) 5 Mg Tablet 5 Mg PO DAILY Cymbalta (Duloxetine Hcl) 60 Mg Capsule.dr 60 Mg PO QHS Lyrica (Pregabalin) 100 Mg Capsule 100 Mg PO BID 30 Days Atorvastatin Calcium 20 Mg Tablet 20 Mg PO HS Novolog (Insulin Aspart) 100 Unit/1 Ml Cartridge 10 Unit SQ TIDAC Lisinopril 40 Mg Tablet 40 Mg PO DAILY Metformin Hcl 1,000 Mg Tablet 1,000 Mg PO BIDWMEALS Allergies Allergies: Coded Allergies: No Known Drug Allergies (Unverified , 03/31/18) ROS General: No: Chills, Fatigue PSYCHOLOGICAL ROS: No: Anxiety, Depression Eyes: No Blurry vision, No Loss of vision HEENT: No: Nasal congestion, Nasal discharge, Sore Throat ALLERGY AND IMMUNOLOGY: No: Hives, Nasal Congestion Hematological and Lymphatic: No: Blood Clots, Brusing Respiratory: No: Cough, Shortness of breath, SOB with excertion Cardiovascular: No Chest Pain Gastrointestinal: No Nausea, No Vomiting, No Abdominal Pain Genitourinary: No Dysuria, No Frequency Musculoskeletal: Yes Joint Pain, Yes Muscle Pain Neurological: No Confusion, No Numbness/Tingling Skin: No Dry Skin, No Rash Physical Exam General: Alert, Oriented X3, Cooperative, No acute distress HEENT: PERRLA Lungs: Clear to auscultation, Normal air movement Heart: RRR, no jug vein distention Cardiovascular: S1, S2 Abdomen: Normal bowel sounds, Soft, No tenderness, No hepatosplenomegaly, No masses Extremities: No clubbing, No edema, Normal pulses, Other (Boot to left lower extremity) Skin: No rashes, No breakdown Neuro: Normal tone, Sensation intact Psych/Mental Status: Mental status NL, Mood NL Vitals Vitals Vital Signs Date Time Temp Pulse Resp B/P (MAP) Pulse Ox O2 Delivery O2 Flow Rate FiO2 05/16/20 07:30 97.7 120 20 133/76 (95) 96 Room Air 97.7 Labs Labs Laboratory Tests Test 05/15/20 17:05 05/16/20 05:45 White Blood Count 11.5 x10^3/uL (4.0-11.0) 7.3 x10^3/uL (4.0-11.0) Red Blood Count 3.84 x10^6/uL (3.50-5.40) 3.98 x10^6/uL (3.50-5.40) Hemoglobin 11.6 g/dL (12.0-15.5) 12.3 g/dL (12.0-15.5) Hematocrit 34.9 % (36.0-47.0) 36.0 % (36.0-47.0) Mean Corpuscular Volume 91 fL (79-100) 91 fL (79-100) Mean Corpuscular Hemoglobin 30 pg (25-35) 31 pg (25-35) Mean Corpuscular Hemoglobin Concent 33 g/dL (31-37) 34 g/dL (31-37) Red Cell Distribution Width 13.6 % (11.5-14.5) 13.8 % (11.5-14.5) Platelet Count 421 x10^3/uL (140-400) 409 x10^3/uL (140-400) Neutrophils (%) (Auto) 81 % (31-73) 68 % (31-73) Lymphocytes (%) (Auto) 11 % (24-48) 21 % (24-48) Monocytes (%) (Auto) 6 % (0-9) 8 % (0-9) Eosinophils (%) (Auto) 1 % (0-3) 2 % (0-3) Basophils (%) (Auto) 1 % (0-3) 0 % (0-3) Neutrophils # (Auto) 9.4 x10^3/uL (1.8-7.7) 5.0 x10^3/uL (1.8-7.7) Lymphocytes # (Auto) 1.2 x10^3/uL (1.0-4.8) 1.5 x10^3/uL (1.0-4.8) Monocytes # (Auto) 0.7 x10^3/uL (0.0-1.1) 0.6 x10^3/uL (0.0-1.1) Eosinophils # (Auto) 0.1 x10^3/uL (0.0-0.7) 0.2 x10^3/uL (0.0-0.7) Basophils # (Auto) 0.1 x10^3/uL (0.0-0.2) 0.0 x10^3/uL (0.0-0.2) Sodium Level 129 mmol/L (136-145) 137 mmol/L (136-145) Potassium Level 3.4 mmol/L (3.5-5.1) 2.8 mmol/L (3.5-5.1) Chloride Level 94 mmol/L (98-107) 99 mmol/L (98-107) Carbon Dioxide Level 23 mmol/L (21-32) 27 mmol/L (21-32) Anion Gap 12 (6-14) 11 (6-14) Blood Urea Nitrogen 36 mg/dL (7-20) 25 mg/dL (7-20) Creatinine 2.8 mg/dL (0.6-1.0) 1.0 mg/dL (0.6-1.0) Estimated GFR (Cockcroft-Gault) 18.3 60.0 BUN/Creatinine Ratio 13 (6-20) Glucose Level 433 mg/dL (70-99) 260 mg/dL (70-99) Calcium Level 9.0 mg/dL (8.5-10.1) 9.2 mg/dL (8.5-10.1) Total Bilirubin 0.6 mg/dL (0.2-1.0) Aspartate Amino Transf (AST/SGOT) 19 U/L (15-37) Alanine Aminotransferase (ALT/SGPT) 32 U/L (14-59) Alkaline Phosphatase 121 U/L (46-116) Troponin I Quantitative < 0.017 ng/mL (0.000-0.055) Total Protein 7.2 g/dL (6.4-8.2) Albumin 2.9 g/dL (3.4-5.0) Albumin/Globulin Ratio 0.7 (1.0-1.7) Serum Test, Qualitative Negative (NEG) Laboratory Tests Test 05/15/20 17:05 05/16/20 05:45 White Blood Count 11.5 x10^3/uL (4.0-11.0) 7.3 x10^3/uL (4.0-11.0) Red Blood Count 3.84 x10^6/uL (3.50-5.40) 3.98 x10^6/uL (3.50-5.40) Hemoglobin 11.6 g/dL (12.0-15.5) 12.3 g/dL (12.0-15.5) Hematocrit 34.9 % (36.0-47.0) 36.0 % (36.0-47.0) Mean Corpuscular Volume 91 fL (79-100) 91 fL (79-100) Mean Corpuscular Hemoglobin 30 pg (25-35) 31 pg (25-35) Mean Corpuscular Hemoglobin Concent 33 g/dL (31-37) 34 g/dL (31-37) Red Cell Distribution Width 13.6 % (11.5-14.5) 13.8 % (11.5-14.5) Platelet Count 421 x10^3/uL (140-400) 409 x10^3/uL (140-400) Neutrophils (%) (Auto) 81 % (31-73) 68 % (31-73) Lymphocytes (%) (Auto) 11 % (24-48) 21 % (24-48) Monocytes (%) (Auto) 6 % (0-9) 8 % (0-9) Eosinophils (%) (Auto) 1 % (0-3) 2 % (0-3) Basophils (%) (Auto) 1 % (0-3) 0 % (0-3) Neutrophils # (Auto) 9.4 x10^3/uL (1.8-7.7) 5.0 x10^3/uL (1.8-7.7) Lymphocytes # (Auto) 1.2 x10^3/uL (1.0-4.8) 1.5 x10^3/uL (1.0-4.8) Monocytes # (Auto) 0.7 x10^3/uL (0.0-1.1) 0.6 x10^3/uL (0.0-1.1) Eosinophils # (Auto) 0.1 x10^3/uL (0.0-0.7) 0.2 x10^3/uL (0.0-0.7) Basophils # (Auto) 0.1 x10^3/uL (0.0-0.2) 0.0 x10^3/uL (0.0-0.2) Sodium Level 129 mmol/L (136-145) 137 mmol/L (136-145) Potassium Level 3.4 mmol/L (3.5-5.1) 2.8 mmol/L (3.5-5.1) Chloride Level 94 mmol/L (98-107) 99 mmol/L (98-107) Carbon Dioxide Level 23 mmol/L (21-32) 27 mmol/L (21-32) Anion Gap 12 (6-14) 11 (6-14) Blood Urea Nitrogen 36 mg/dL (7-20) 25 mg/dL (7-20) Creatinine 2.8 mg/dL (0.6-1.0) 1.0 mg/dL (0.6-1.0) Estimated GFR (Cockcroft-Gault) 18.3 60.0 BUN/Creatinine Ratio 13 (6-20) Glucose Level 433 mg/dL (70-99) 260 mg/dL (70-99) Calcium Level 9.0 mg/dL (8.5-10.1) 9.2 mg/dL (8.5-10.1) Total Bilirubin 0.6 mg/dL (0.2-1.0) Aspartate Amino Transf (AST/SGOT) 19 U/L (15-37) Alanine Aminotransferase (ALT/SGPT) 32 U/L (14-59) Alkaline Phosphatase 121 U/L (46-116) Troponin I Quantitative < 0.017 ng/mL (0.000-0.055) Total Protein 7.2 g/dL (6.4-8.2) Albumin 2.9 g/dL (3.4-5.0) Albumin/Globulin Ratio 0.7 (1.0-1.7) Serum Test, Qualitative Negative (NEG) Images Images Exam: CT left lower extremity without contrast INDICATION: Evaluate for ankle fracture TECHNIQUE: Sequential axial images through the left ankle obtained without IV contrast. Sagittal and coronal reformatted images were reconstructed from the axial data and reviewed. Comparisons: Ankle radiographs same day FINDINGS: There is redemonstration of a mildly comminuted obliquely oriented fracture through the distal fibula. Small bone fragments are noted at the tibiotalar joint space. No other acute fracture is seen. Bone mineralization is normal. There is soft tissues swelling noted surrounding the fracture site. Mild edema is also noted overlying the medial malleolus. IMPRESSION: Mildly comminuted obliquely or acute fractures of the distal fibula with surrounding soft tissue swelling. VTE Prophylaxis Ordered VTE Prophylaxis Devices: No VTE Pharmacological Prophylaxi: Yes Assessment/Plan Assessment/Plan Left distal fibula fracture hyponatremia, hypo-kalemia, hyperglycemia, type 2 diabetes, dehydration Plan: Consultations were placed orthopedic surgery, with no surgical intervention planned at this time. We will replace patient's potassium. Obtain echocardiogram. Continue home medications. PT/OT. Pain management. DVT prophylaxis. Patient reports her as surrogate decision making, full code. Justifications for Admission Other Justification KATELYNN REYNA MD May 16, 2020 08:41
[2020-05-16] MEDS ORDERED: oxyCODONE/APAP 5/325 1 TAB TABLET PO PRN (09:45)
[2020-05-16] MEDS: oxyCODONE/APAP 5/325 1 TAB TABLET PO PRN ×4 (09:50→23:20)
[2020-05-16 10:55] VITALS: BP 133/67
[2020-05-16] MEDS ORDERED: CYCLOBENZAPRINE 10 MG TABLET. PO PRN (12:15)
[2020-05-16] MEDS ORDERED: DEXTROSE 50% 25 GM / 50ML DISP.SYRIN. IV PRN (12:15)
[2020-05-16] MEDS ORDERED: ONDANSETRON ODT 4 MG TAB.RAPDIS. PO PRN (12:15)
[2020-05-16] MEDS: PREGABALIN 50 MG CAPSULE PO SCH ×2 (12:43→21:17)
[2020-05-16] MEDS: LISINOPRIL 20 MG TABLET PO SCH (12:49)
[2020-05-16] MEDS: DOCUSATE SODIUM 100 MG CAPSULE. PO SCH ×2 (12:50→21:17)
[2020-05-16] MEDS: INSULIN LISPRO 300 UNITS/3 ML VIAL. SQ SCH ×2 (12:53→17:29)
--- NOTE | 2020-05-16 13:29 | NUR ---
SS following for discharge planning. SS reviewed pt chart and discussed with pt RN. Pt is from home with spouse and is currently on room air. Pt having ECHO today and waiting on Cam Boot. SS will continue to follow for discharge planning.
[2020-05-16] MEDS: GABAPENTIN 300 MG CAPSULE. PO SCH ×2 (14:20→21:18)
[2020-05-16] MEDS: HEPARIN for SUB-Q USE 5,000 UNIT/ML VIAL. SQ SCH ×2 (14:23→21:23)
[2020-05-16 14:36] VITALS: BP 111/56
[2020-05-16 19:51] VITALS: BP 106/63
[2020-05-16] MEDS ORDERED: ATORVASTATIN CALCIUM 20 MG TABLET PO SCH (21:00)
[2020-05-16] MEDS ORDERED: INSULIN GLARGINE SYRINGE. SQ SCH (21:00)
[2020-05-16] MEDS ORDERED: DULoxetine HCL 30 MG CAPSULE.DR PO SCH (21:00)
[2020-05-16] MEDS ORDERED: ZOLPIDEM 5 MG TABLET. PO PRN (21:30)
[2020-05-16 22:18] VITALS: BP 123/64
[2020-05-17 02:23] VITALS: BP 137/78
[2020-05-17] MEDS: oxyCODONE/APAP 5/325 1 TAB TABLET PO PRN ×2 (05:21→12:12)
[2020-05-17] MEDS: HEPARIN for SUB-Q USE 5,000 UNIT/ML VIAL. SQ SCH ×2 (05:25→14:18)
[2020-05-17 07:00] VITALS: BP 150/84
[2020-05-17 08:10] LABS: BASO % 1 % (0-3); EOS # 0.1 x10^3/uL (0.0-0.7); EOS % 3 % (0-3); HEMATOCRIT 34.8 % (36.0-47.0); HEMOGLOBIN 11.9 g/dL (12.0-15.5); LYMPH # 1.3 x10^3/uL (1.0-4.8); LYMPH % 22 % (24-48); MEAN CORPUSCULAR HEMOGLOBIN 31 pg (25-35); MEAN CORPUSCULAR HGB CONC 34 g/dL (31-37); MEAN CORPUSCULAR VOLUME 90 fL (79-100); MONO # 0.6 x10^3/uL (0.0-1.1); MONO % 10 % (0-9); NEUT # 3.9 x10^3/uL (1.8-7.7); NEUT % 65 % (31-73); PLATELET COUNT 407 x10^3/uL (140-400); RED BLOOD COUNT 3.87 x10^6/uL (3.50-5.40); RED CELL DISTRIBUTION WIDTH 13.6 % (11.5-14.5)
[2020-05-17] MEDS: GABAPENTIN 300 MG CAPSULE. PO SCH ×2 (08:20→14:15)
[2020-05-17] MEDS: DOCUSATE SODIUM 100 MG CAPSULE. PO SCH (08:21)
[2020-05-17] MEDS: PREGABALIN 50 MG CAPSULE PO SCH (08:21)
[2020-05-17] MEDS: LISINOPRIL 20 MG TABLET PO SCH (08:21)
[2020-05-17] MEDS: INSULIN LISPRO 300 UNITS/3 ML VIAL. SQ SCH ×2 (08:25→12:20)
[2020-05-17 08:39] LABS: CALCIUM 9.4 mg/dL (8.5-10.1); CREATININE 0.8 mg/dL (0.6-1.0); GFR 77.6; POTASSIUM 3.3 mmol/L (3.5-5.1)
--- NOTE | 2020-05-17 10:09 | PDOC ---
[employer] PROGRESS NOTE Date of Service DOS: DATE: 05/17/20 TIME: 10:07 Chief Complaint Chief Complaint Left ankle fracture History of Present Illness History of Present Illness Patient evaluated at bedside. Reports some pain that is controlled with medication. Discussed with patient she is to have physical therapy today and likely discharge with orthopedic surgery follow-up pending their evaluation. Vitals/I&O Vitals/I&O: Vital Signs Date Time Temp Pulse Resp B/P (MAP) Pulse Ox O2 Delivery O2 Flow Rate FiO2 05/17/20 08:21 115 150/84 05/17/20 07:57 Room Air 05/17/20 07:00 97.5 20 95 97.5 I & O 05/16/20 05/16/20 05/17/20 15:00 23:00 07:00 Intake Total 0 ml 1180 ml 1080 ml Output Total 0 ml 600 ml Balance 0 ml 1180 ml 480 ml Physical Exam General: Alert, Oriented X3, Cooperative, No acute distress Heart: Regular rate Lungs: Clear, Wheezing Abdomen: Normal bowel sounds, Soft, No tenderness, No hepatosplenomegaly, No masses Extremities: No clubbing, No edema, Normal pulses, Other (Boot to left lower extremity) Skin: No rashes, No breakdown Labs Labs: Laboratory Tests Test 05/16/20 12:48 05/16/20 16:10 05/16/20 20:50 05/17/20 07:34 Glucose (Fingerstick) 293 mg/dL (70-99) 265 mg/dL (70-99) 306 mg/dL (70-99) 209 mg/dL (70-99) Test 05/17/20 07:55 White Blood Count 6.0 x10^3/uL (4.0-11.0) Red Blood Count 3.87 x10^6/uL (3.50-5.40) Hemoglobin 11.9 g/dL (12.0-15.5) Hematocrit 34.8 % (36.0-47.0) Mean Corpuscular Volume 90 fL (79-100) Mean Corpuscular Hemoglobin 31 pg (25-35) Mean Corpuscular Hemoglobin Concent 34 g/dL (31-37) Red Cell Distribution Width 13.6 % (11.5-14.5) Platelet Count 407 x10^3/uL (140-400) Neutrophils (%) (Auto) 65 % (31-73) Lymphocytes (%) (Auto) 22 % (24-48) Monocytes (%) (Auto) 10 % (0-9) Eosinophils (%) (Auto) 3 % (0-3) Basophils (%) (Auto) 1 % (0-3) Neutrophils # (Auto) 3.9 x10^3/uL (1.8-7.7) Lymphocytes # (Auto) 1.3 x10^3/uL (1.0-4.8) Monocytes # (Auto) 0.6 x10^3/uL (0.0-1.1) Eosinophils # (Auto) 0.1 x10^3/uL (0.0-0.7) Basophils # (Auto) 0.0 x10^3/uL (0.0-0.2) Sodium Level 139 mmol/L (136-145) Potassium Level 3.3 mmol/L (3.5-5.1) Chloride Level 101 mmol/L (98-107) Carbon Dioxide Level 30 mmol/L (21-32) Anion Gap 8 (6-14) Blood Urea Nitrogen 20 mg/dL (7-20) Creatinine 0.8 mg/dL (0.6-1.0) Estimated GFR (Cockcroft-Gault) 77.6 Glucose Level 197 mg/dL (70-99) Calcium Level 9.4 mg/dL (8.5-10.1) Review of Systems Review of Systems: Left ankle pain. Denies fever, denies vomiting, denies nausea. Assessment and Plan Assessmemt and Plan Problems Medical Problems: (1) Left fibular fracture Status: Acute (2) Syncopal episodes Status: Acute Comment Review of Relevant I have reviewed the following items tobi (where applicable) has been applied. Medications: Current Medications Medications (Trade) Dose Ordered Sig/Xiao Route PRN Reason Start Time Stop Time Status Last Admin Dose Admin Atorvastatin Calcium (Lipitor) 20 mg HS PO 05/16/20 21:00 05/16/20 21:18 Docusate Sodium (Colace) 100 mg BID PO 05/16/20 13:00 05/17/20 08:21 Gabapentin (Neurontin) 300 mg TID PO 05/16/20 14:00 05/17/20 08:20 Lisinopril (Prinivil) 40 mg DAILY PO 05/16/20 13:00 05/17/20 08:21 Duloxetine HCl (Cymbalta) 30 mg QHS PO 05/16/20 21:00 05/16/20 21:17 Pregabalin (Lyrica) 100 mg BID PO 05/16/20 12:15 05/17/20 08:21 Heparin Sodium (Porcine) (Heparin Sodium) 5,000 unit Q8HRS SQ 05/16/20 14:00 05/17/20 05:25 Insulin Glargine (Lantus Syringe) 15 unit QHS SQ 05/16/20 21:00 05/16/20 21:24 Insulin Human Lispro (HumaLOG) 5 units TIDWMEALS SQ 05/16/20 12:30 05/17/20 08:25 Oxycodone/ Acetaminophen (Percocet 5/325) 1 tab PRN Q4HRS PRN PO MODERATE PAIN 05/16/20 15:15 05/16/20 19:16 Zolpidem Tartrate (Ambien) 5 mg PRN QHS PRN PO INSOMNIA 05/16/20 21:30 05/16/20 22:03 Justifications for Admission Other Justification KATELYNN REYNA MD May 17, 2020 10:09
[2020-05-17 11:01] VITALS: BP 149/83
--- NOTE | 2020-05-17 11:54 | CARD ---
MR#: [id number] Date of Study: 05/16/2020 Ordering Physician: KATELYNN REYNA, Referring Physician: KATELYNN REYNA, Tech: Beata Cox APPROVED REPORT EXAM: Two-dimensional and M-mode echocardiogram with Doppler and color Doppler. Other Information Quality : AverageHR: 127bpm Technically limited study due to Rapid heart rate INDICATION Syncope RISK FACTORS Hypertension Hyperlipidemia Diabetes Smoking 2D DIMENSIONS Left Atrium(2D)3.0 (1.6-4.0cm)IVSd1.0 (0.7-1.1cm) Aortic Root(2D)3.1 (2.0-3.7cm)LVDd4.3 (3.9-5.9cm) LVOT Diameter2.1 (1.8-2.4cm)PWd1.2 (0.7-1.1cm) LVDs3.0 (2.5-4.0cm)FS (%) 31.7 % SV51.1 ml Aortic Valve AoV Peak Bassam.149.6cm/sAoV VTI27.0cm AO Peak GR.8.9mmHgLVOT VTI 23.15cm AO Mean GR.7mmHg Mitral Valve MV E Zetqizfs52.0cm/sMV E Peak Gr.8mmHg MV DECEL [id number] A Jqenjdia090.2cm/s MV E Mean Gr.2mmHgE/A Ratio0.8 TDI Lateral E' P. V12.49cm/sMedial E' P. V10.17cm/s E/Lateral E'6.9E/Medial E'8.5 Tricuspid Valve TR P. [id number]/sRAP [id number] TR Peak Gr.[id number] LEFT VENTRICLE The left ventricle is normal size. There is normal left ventricular wall thickness. The left ventricu lar systolic function is normal and the ejection fraction is within normal range. The Ejection Fracti on is 60-65%. There is normal LV segmental wall motion. Transmitral Doppler flow pattern is Grade I-a bnormal relaxation pattern. RIGHT VENTRICLE The right ventricle is normal size. There is normal right ventricular wall thickness. The right ventr icular systolic function is normal. ATRIA The left atrium size is normal. The right atrium size is normal. The interatrial septum is intact wit h no evidence for an atrial septal defect or patent foramen ovale as noted on 2-D or Doppler imaging. AORTIC VALVE The aortic valve is not well visualized. Doppler and Color Flow revealed no significant aortic regurg itation. There is no significant aortic valvular stenosis. MITRAL VALVE The mitral valve is normal in structure and function. There is no evidence of mitral valve prolapse. There is no mitral valve stenosis. Doppler and Color-flow revealed trace mitral regurgitation. TRICUSPID VALVE The tricuspid valve is normal in structure and function. Doppler and Color Flow revealed trace tricus pid regurgitation with an estimated PAP of 30 mmHg. There is no tricuspid valve stenosis. PULMONIC VALVE The pulmonic valve is not well visualized. Doppler and Color Flow revealed trace pulmonic valvular re gurgitation. GREAT VESSELS The aortic root is normal in size. The IVC is normal in size and collapses >50% with inspiration. PERICARDIAL EFFUSION There is no evidence of significant pericardial effusion. Critical Notification Critical Value: No <Conclusion> The left ventricle is normal size. The left ventricular systolic function is normal and the ejection fraction is within normal range. The Ejection Fraction is 60-65%. Doppler and Color Flow revealed no significant aortic regurgitation. There is no significant aortic valvular stenosis. Calculated aortic valve area is 3.32 cm2 with maximum pressure gradient of 12 mmHg and mean pressure gradient of 8 mmHg. Doppler and Color-flow revealed trace mitral regurgitation. Doppler and Color Flow revealed trace tricuspid regurgitation with an estimated PAP of 30 mmHg. Signed by : Keith Bang MD Electronically Approved : 05/17/2020 11:53:42
--- NOTE | 2020-05-17 12:34 | NUR ---
SS following up with discharge planning. SS reviewed pt chart and discussed with pt RN. Pt is currently on room air. Pt has cam boot. PT evaluating. Discharge plan is to home when ready. Possible discharge to home today. SS will continue to follow for discharge planning.
--- NOTE | 2020-05-17 14:42 | PDOC3 ---
Discharge Summary Visit Information Date of Admission: May 15, 2020 Date of Discharge: May 17, 2020 Final Diagnosis Problems Medical Problems: (1) Left fibular fracture Status: Acute (2) Syncopal episodes Status: Acute Brief Hospital Course Allergies Allergies Coded Allergies Type Severity Reaction Last Updated Verified No Known Drug Allergies 03/31/18 No Vital Signs Vital Signs Date Time Temp Pulse Resp B/P (MAP) Pulse Ox O2 Delivery O2 Flow Rate FiO2 05/17/20 13:12 20 98 Room Air 05/17/20 11:01 97.7 119 149/83 (105) 97.7 Lab Results Laboratory Tests Test 05/15/20 17:05 05/16/20 05:45 05/16/20 12:48 05/16/20 16:10 White Blood Count 11.5 x10^3/uL (4.0-11.0) 7.3 x10^3/uL (4.0-11.0) Red Blood Count 3.84 x10^6/uL (3.50-5.40) 3.98 x10^6/uL (3.50-5.40) Hemoglobin 11.6 g/dL (12.0-15.5) 12.3 g/dL (12.0-15.5) Hematocrit 34.9 % (36.0-47.0) 36.0 % (36.0-47.0) Mean Corpuscular Volume 91 fL (79-100) 91 fL (79-100) Mean Corpuscular Hemoglobin 30 pg (25-35) 31 pg (25-35) Mean Corpuscular Hemoglobin Concent 33 g/dL (31-37) 34 g/dL (31-37) Red Cell Distribution Width 13.6 % (11.5-14.5) 13.8 % (11.5-14.5) Platelet Count 421 x10^3/uL (140-400) 409 x10^3/uL (140-400) Neutrophils (%) (Auto) 81 % (31-73) 68 % (31-73) Lymphocytes (%) (Auto) 11 % (24-48) 21 % (24-48) Monocytes (%) (Auto) 6 % (0-9) 8 % (0-9) Eosinophils (%) (Auto) 1 % (0-3) 2 % (0-3) Basophils (%) (Auto) 1 % (0-3) 0 % (0-3) Neutrophils # (Auto) 9.4 x10^3/uL (1.8-7.7) 5.0 x10^3/uL (1.8-7.7) Lymphocytes # (Auto) 1.2 x10^3/uL (1.0-4.8) 1.5 x10^3/uL (1.0-4.8) Monocytes # (Auto) 0.7 x10^3/uL (0.0-1.1) 0.6 x10^3/uL (0.0-1.1) Eosinophils # (Auto) 0.1 x10^3/uL (0.0-0.7) 0.2 x10^3/uL (0.0-0.7) Basophils # (Auto) 0.1 x10^3/uL (0.0-0.2) 0.0 x10^3/uL (0.0-0.2) Sodium Level 129 mmol/L (136-145) 137 mmol/L (136-145) Potassium Level 3.4 mmol/L (3.5-5.1) 2.8 mmol/L (3.5-5.1) Chloride Level 94 mmol/L (98-107) 99 mmol/L (98-107) Carbon Dioxide Level 23 mmol/L (21-32) 27 mmol/L (21-32) Anion Gap 12 (6-14) 11 (6-14) Blood Urea Nitrogen 36 mg/dL (7-20) 25 mg/dL (7-20) Creatinine 2.8 mg/dL (0.6-1.0) 1.0 mg/dL (0.6-1.0) Estimated GFR (Cockcroft-Gault) 18.3 60.0 BUN/Creatinine Ratio 13 (6-20) Glucose Level 433 mg/dL (70-99) 260 mg/dL (70-99) Calcium Level 9.0 mg/dL (8.5-10.1) 9.2 mg/dL (8.5-10.1) Total Bilirubin 0.6 mg/dL (0.2-1.0) Aspartate Amino Transf (AST/SGOT) 19 U/L (15-37) Alanine Aminotransferase (ALT/SGPT) 32 U/L (14-59) Alkaline Phosphatase 121 U/L (46-116) Troponin I Quantitative < 0.017 ng/mL (0.000-0.055) Total Protein 7.2 g/dL (6.4-8.2) Albumin 2.9 g/dL (3.4-5.0) Albumin/Globulin Ratio 0.7 (1.0-1.7) Serum Test, Qualitative Negative (NEG) Glucose (Fingerstick) 293 mg/dL (70-99) 265 mg/dL (70-99) Test 05/16/20 20:50 05/17/20 07:34 05/17/20 07:55 05/17/20 12:17 Glucose (Fingerstick) 306 mg/dL (70-99) 209 mg/dL (70-99) 215 mg/dL (70-99) White Blood Count 6.0 x10^3/uL (4.0-11.0) Red Blood Count 3.87 x10^6/uL (3.50-5.40) Hemoglobin 11.9 g/dL (12.0-15.5) Hematocrit 34.8 % (36.0-47.0) Mean Corpuscular Volume 90 fL (79-100) Mean Corpuscular Hemoglobin 31 pg (25-35) Mean Corpuscular Hemoglobin Concent 34 g/dL (31-37) Red Cell Distribution Width 13.6 % (11.5-14.5) Platelet Count 407 x10^3/uL (140-400) Neutrophils (%) (Auto) 65 % (31-73) Lymphocytes (%) (Auto) 22 % (24-48) Monocytes (%) (Auto) 10 % (0-9) Eosinophils (%) (Auto) 3 % (0-3) Basophils (%) (Auto) 1 % (0-3) Neutrophils # (Auto) 3.9 x10^3/uL (1.8-7.7) Lymphocytes # (Auto) 1.3 x10^3/uL (1.0-4.8) Monocytes # (Auto) 0.6 x10^3/uL (0.0-1.1) Eosinophils # (Auto) 0.1 x10^3/uL (0.0-0.7) Basophils # (Auto) 0.0 x10^3/uL (0.0-0.2) Sodium Level 139 mmol/L (136-145) Potassium Level 3.3 mmol/L (3.5-5.1) Chloride Level 101 mmol/L (98-107) Carbon Dioxide Level 30 mmol/L (21-32) Anion Gap 8 (6-14) Blood Urea Nitrogen 20 mg/dL (7-20) Creatinine 0.8 mg/dL (0.6-1.0) Estimated GFR (Cockcroft-Gault) 77.6 Glucose Level 197 mg/dL (70-99) Calcium Level 9.4 mg/dL (8.5-10.1) Laboratory Tests Test 05/16/20 16:10 05/16/20 20:50 05/17/20 07:34 05/17/20 07:55 Glucose (Fingerstick) 265 mg/dL (70-99) 306 mg/dL (70-99) 209 mg/dL (70-99) White Blood Count 6.0 x10^3/uL (4.0-11.0) Red Blood Count 3.87 x10^6/uL (3.50-5.40) Hemoglobin 11.9 g/dL (12.0-15.5) Hematocrit 34.8 % (36.0-47.0) Mean Corpuscular Volume 90 fL (79-100) Mean Corpuscular Hemoglobin 31 pg (25-35) Mean Corpuscular Hemoglobin Concent 34 g/dL (31-37) Red Cell Distribution Width 13.6 % (11.5-14.5) Platelet Count 407 x10^3/uL (140-400) Neutrophils (%) (Auto) 65 % (31-73) Lymphocytes (%) (Auto) 22 % (24-48) Monocytes (%) (Auto) 10 % (0-9) Eosinophils (%) (Auto) 3 % (0-3) Basophils (%) (Auto) 1 % (0-3) Neutrophils # (Auto) 3.9 x10^3/uL (1.8-7.7) Lymphocytes # (Auto) 1.3 x10^3/uL (1.0-4.8) Monocytes # (Auto) 0.6 x10^3/uL (0.0-1.1) Eosinophils # (Auto) 0.1 x10^3/uL (0.0-0.7) Basophils # (Auto) 0.0 x10^3/uL (0.0-0.2) Sodium Level 139 mmol/L (136-145) Potassium Level 3.3 mmol/L (3.5-5.1) Chloride Level 101 mmol/L (98-107) Carbon Dioxide Level 30 mmol/L (21-32) Anion Gap 8 (6-14) Blood Urea Nitrogen 20 mg/dL (7-20) Creatinine 0.8 mg/dL (0.6-1.0) Estimated GFR (Cockcroft-Gault) 77.6 Glucose Level 197 mg/dL (70-99) Calcium Level 9.4 mg/dL (8.5-10.1) Test 05/17/20 12:17 Glucose (Fingerstick) 215 mg/dL (70-99) Brief Hospital Course Ms. Padilla is a 45 old female who presented with mildly comminuted obliquely or acute fractures of the distal fibula. Patient states the accidentally doubled up on her blood pressure and beta-benjamin on the day of her fall. Consultation was placed orthopedic surgery who recommended a Cam walker boot and follow-up in 1 week. She was evaluated by physical therapy, and recommended home independently. Discharge Information Condition at Discharge: Stable Disposition/Orders: D/C to Home Scheduled Atorvastatin Calcium (Atorvastatin Calcium) 20 Mg Tablet, 20 MG PO HS for FOR CHOLESTEROL, #30 Ref 0 (Reported) Entered as Reported by: DILLON JAMES on 08/26/19 0848 Last Action: Continued on 05/16/201208 by KATELYNN REYNA MD Cyclobenzaprine Hcl (Cyclobenzaprine Hcl) 10 Mg Tablet, 1 TAB PO TID, #21 Prescribed by: MAGGY DAWKINS MD on 12/31/19 1116 Last Action: Continued on 05/16/201208 by KATELYNN REYNA MD Docusate Sodium (Colace) 100 Mg Capsule, 100 MG PO BID, #60 Ref 1 Prescribed by: TRACEY VAZ on 04/01/18 0851 Last Action: Continued on 05/16/201208 by KATELYNN REYNA MD Duloxetine Hcl (Cymbalta) 60 Mg Capsule.dr, 60 MG PO QHS for neuropathy , (Reported) Entered as Reported by: DILLON JAMES on 08/26/19 0853 Last Action: Converted on 05/16/201208 by KATELYNN REYNA MD Gabapentin (Gabapentin) 300 Mg Capsule, 1 CAP PO TID for neuropathy, (Reported) Entered as Reported by: CAMILA BORRERO RN on 05/15/20 2249 Last Action: Continued on 05/16/201208 by KATELYNN REYNA MD Insulin Aspart (Novolog) 100 Unit/1 Ml Cartridge, 10 UNIT SQ TIDAC, (Reported) Entered as Reported by: TEREZA CHRISTOPHER on 03/10/18640 Last Action: HELD on 05/16/201208 by KATELYNN REYNA MD Insulin Degludec (Tresiba Flextouch U-100) 100 Unit/1 Ml Insuln.pen, 20 UNIT SQ DAILY for DM for 30 Days, #5 Prescribed by: JASS MARTINI on 12/13/18 1043 Last Action: HELD on 05/16/201208 by KATELYNN REYNA MD Linagliptin (Tradjenta) 5 Mg Tablet, 5 MG PO DAILY for hyperglycemia , (Reported) Entered as Reported by: DILLON JAMES on 08/26/1954 Last Action: HELD on 05/16/201208 by KATELYNN REYNA MD Lisinopril (Lisinopril) 40 Mg Tablet, 40 MG PO DAILY for FOR HYPERTENSION, #30 Ref 0 (Reported) Entered as Reported by: TEREZA CHRISTOPHER on 03/10/18640 Last Action: Continued on 05/16/201208 by KATELYNN REYNA MD Metformin Hcl (Metformin Hcl) 1,000 Mg Tablet, 1,000 MG PO BIDWMEALS, (Reported) Entered as Reported by: TEREZA CHRISTOPHER on 03/10/18640 Last Action: HELD on 05/16/201208 by KATELYNN REYNA MD Pregabalin (Lyrica) 100 Mg Capsule, 100 MG PO BID for neuropathy for 30 Days, Ref 0 (Reported) Entered as Reported by: DILLON JAMES on 08/26/19 0849 Last Action: Converted on 05/16/201208 by KATELYNN REYNA MD Scheduled PRN Ondansetron (Ondansetron Odt) 4 Mg Tab.rapdis, 1 TAB PO PRN Q6-8HRS PRN for NAUSEA, #16 Prescribed by: OLY SANCHEZ D.O. on 01/11/20 1354 Last Action: Continued on 05/16/201208 by KATELYNN REYNA MD Oxycodone/Apap 7.5-325 (Percocet 7.5-325 Mg Tablet ) 1 Each Tablet, 1 TAB PO PRN Q6HRS PRN for SEVERE PAIN for 7 Days Prescribed by: TAN CARTER on 08/26/19 1218 Last Action: HELD on 05/16/201208 by KATELYNN REYNA MD Discontinued Medications Hydrocodone/Apap 5-325 ([place] 5-325 Tablet) 1 Each Tablet, 1-2 TAB PO Q4-6HRS PRN for PAIN, #12 Prescribed by: ERIKA JUAREZ on 11/20/19 173 Methocarbamol (Robaxin-750) 750 Mg Tablet, 1 TAB PO TID PRN for MUSCLE SPASMS, #21 Ref 0 Prescribed by: ERIKA JUAREZ on 11/20/19 173 Last Action: HELD on 05/16/201208 by KATELYNN REYNA MD Orphenadrine Citrate (Orphenadrine Citrate) 100 Mg Tablet.er, 1 TAB PO BID, #20 Ref 0 Prescribed by: Paige Rogel APRN on 04/29/207 Last Action: HELD on 05/16/201208 by KATELYNN REYNA MD Tramadol Hcl (Tramadol Hcl) 50 Mg Tablet, 1 TAB PO PRN BID PRN for PAIN, (Reported) Entered as Reported by: CAMILA BORRERO RN on 05/15/209 Last Action: HELD on 05/16/201208 by KATELYNN REYNA MD [Percogesic] , 1 TAB PO 1X PRN for PAIN, #14 Prescribed by: MAGGY DAWKINS MD on 12/31/19 1116 Last Action: HELD on 05/16/201208 by KATELYNN REYNA MD Justicifation of Admission Dx: Justifications for Admission: Justification of Admission Dx: N/A KATELYNN REYNA MD May 17, 2020 14:42
[2020-05-17 15:00] VITALS: BP 163/85
[2020-05-18 01:08] LABS: HEMOGLOBIN A1C 10.1 % (4.8-5.6)
[2020-05-23] MEDS ORDERED: OXYC1TAB15 PO (13:34)
[2020-05-23] MEDS ORDERED: INSU100V37 SQ (13:34)
[2020-05-23] MEDS ORDERED: METO-239 PO (13:34)
== END 2020-05-17 16:10 | disposition home or self-care (01) | DRG 562 ==
LOC: ER 16:38 → 2 SOUTH 21:10
PROVIDERS: ADMIT Internal Medicine; ATTEND Internal Medicine
DX: S82.832A Other fracture of upper and lower end of left fibula, initial encounter for closed fracture (principal); N17.0 Acute kidney failure with tubular necrosis; E87.1 Hypo-osmolality and hyponatremia; E11.65 Type 2 diabetes mellitus with hyperglycemia; E78.00 Pure hypercholesterolemia, unspecified; E78.5 Hyperlipidemia, unspecified; E86.0 Dehydration; E87.6 Hypokalemia; F17.210 Nicotine dependence, cigarettes, uncomplicated; I10 Essential (primary) hypertension; J44.9 Chronic obstructive pulmonary disease, unspecified; M62.838 Other muscle spasm; G89.29 Other chronic pain; M54.5 Low back pain; W18.30XA Fall on same level, unspecified, initial encounter; Y93.89 Activity, other specified; Y92.89 Other specified places as the place of occurrence of the external cause; Y99.8 Other external cause status; Z79.4 Long term (current) use of insulin; Z79.84 Long term (current) use of oral hypoglycemic drugs; Z79.899 Other long term (current) drug therapy; Z85.41 Personal history of malignant neoplasm of cervix uteri; Z90.710 Acquired absence of both cervix and uterus
CPT/HCPCS: 36415; 70450; 71045; 72125; 73562; 73610; 73700; 80048; 80053; 82962; 83036; 84484; 84703; 85025; 93005; 93306; 96360; J1644; J1815; J7030; 97116-GP; 97530-GP; 99285-25; G0378

== ENCOUNTER 2020-05-24 10:23 | Observation (INO) | payer BC ==
[2020-05-24] VITALS (9 sets, daily range): BP systolic 150–182; BP diastolic 72–99
[~2020-05-24] VITALS: Ht 160 cm; Wt 104.1 kg
[~2020-05-24 10:23] MED LIST changes: +GABA300C9 PO; +HYDROmorphone 2 MG/ML VIAL IV PRN; +INSU100V37 SQ; +IV RINGERS,LACTATED 1000ML 1,000 ML IV SCH; +LIDOCAINE 1% PF 2 ML VIAL. ID PRN; +METO-239 PO; +MORPHINE SULFATE 2 MG/ML VIAL. IV PRN; +ONDANSETRON PF 4 MG/2 ML VIAL. IV PRN; +PROCHLORPERAZINE 10 MG/2 ML VIAL. IV PRN; +fentaNYL PF VIAL 100 MCG/2 ML VIAL IV PRN
[2020-05-24] MEDS ORDERED: MIDAZOLAM HCL/PF 2 MG/2 ML VIAL. ONE (10:35)
[2020-05-24] MEDS ORDERED: PROPOFOL 10 MG/ML (20ML) VIAL. IV ONE (10:35)
[2020-05-24] MEDS ORDERED: LIDOCAINE 2% PF 5 ML VIAL. ONE (10:35)
[2020-05-24] MEDS ORDERED: fentaNYL PF VIAL 100 MCG/2 ML VIAL ONE ×2 (10:36→15:18)
[2020-05-24] MEDS: INSULIN LISPRO 100 UNIT/ML 3ML VIAL for OP,RR ONLY. SQ PRN ×2 (11:19→12:23)
[2020-05-24] MEDS ORDERED: INSULIN LISPRO 100 UNIT/ML 3ML VIAL for OP,RR ONLY. SQ ONE ×2 (12:30)
[2020-05-24] MEDS ORDERED: DEXAMETHASONE SOD PHOS 4 MG/ML VIAL ONE (14:19)
[2020-05-24] MEDS ORDERED: ONDANSETRON PF 4 MG/2 ML VIAL. ONE (14:19)
[2020-05-24] MEDS ORDERED: SEVOFLURANE 61 TO 120 MINUTES. IH ONE (14:30)
[2020-05-24] MEDS ORDERED: oxyCODONE/APAP 7.5/325 1 TAB TABLET PO ONE (15:15)
[2020-05-24] MEDS ORDERED: PROCHLORPERAZINE 10 MG/2 ML VIAL. ONE (15:43)
[2020-05-24] MEDS ORDERED: oxyCODONE IR 5 MG TABLET PO PRN (16:00)
[2020-05-24] MEDS ORDERED: HYDROcodone/APAP 7.5/325MG 1 TAB TABLET PO PRN ×2 (16:00)
[2020-05-24] MEDS ORDERED: ONDANSETRON PF 4 MG/2 ML VIAL. IVP PRN (16:00)
[2020-05-24] MEDS ORDERED: POLYETHYLENE GLYCOL 3350 17 GM PACKET. PO PRN (16:00)
[2020-05-24] MEDS ORDERED: MORPHINE SULFATE 4 MG/ML VIAL. IVP PRN (16:00)
[2020-05-24] MEDS ORDERED: DEXTROSE 50% 25 GM / 50ML DISP.SYRIN. IV PRN (16:00)
[2020-05-24] MEDS ORDERED: fentaNYL PF VIAL 100 MCG/2 ML VIAL IVP PRN (16:00)
--- NOTE | 2020-05-24 17:01 | NUR ---
Patient Romelia Padilla, 45 year old female s/p ORIF, closed fracture of left distal fibula arrived on the unit at 1645 via gurney. She's alert, oriented x 4, reports pain 4/10 in the left leg, VSS. Belongings checked, she was oriented to the unit , call light placed within reach.
--- NOTE | 2020-05-24 19:01 | PDOC4 ---
Operative Note Operative Note Date of surgery: 05/24/2020 Preoperative diagnosis: Displaced left distal fibula fracture with syndesmotic disruption and lateral talar shift Postoperative diagnosis: Same Operative procedure: ORIF of left distal fibula fracture with syndesmosis fixation Surgeon: Lani Photostat Operator Helper: Isai hernández Anesthesia: General Estimated blood loss: 5 cc Complications: None Operative indications: Please see my dictated orthopedic clinic note for detailed operative indications and note that patient was initially treated nonoperatively but on return to clinic was noted to have loss of reduction of the distal fibula fracture with lateral talar shift and I went through with her the necessity of operative fixation and the possibility of syndesmotic fixation which would potentially result in screw placement across the syndesmosis and later require removal in about 3 to 4 months. We talked about early elevation and nonweightbearing until wound healing with progressive activity afterward and the possibility of infection nonhealing nerve or blood vessel damage continued pain stiffness medical or other anesthetic complications among others all her questions were answered and she wishes to proceed with surgical evaluation and treatment. Operative text: Patient was identified procedure verified patient placed in the supine position on the operating table. After adequate amounts of general anesthesia were administered the left lower extremity was prepped and draped in standard sterile fashion. After timeout was performed patient procedure identified and verified the left lower extremity was exsanguinated by Esmarch bandage tourniquet inflated to 350 mmHg and a lateral incision was made over the distal fibula and subperiosteal dissection was carried out. Anatomic reduction was carried out of the distal fibula and a 6-hole Merry distal fibular locking plate was placed and secured by a single bicortical screw and by a total of 2 distal locking screws in the distal fragment. Under fluoroscopic guidance there was still some lateral talar shift and opening of the syndesmosis. Syndesmotic fixation was carried out with a total of 2 screws placed under fluoroscopic guidance and the syndesmosis and ankle mortise joint space was restored anatomically. The remainder of the nonlocking proximal bicortical screws was placed as well as the locking distal screws and anatomic alignment noted under multiple fluoroscopic views and the hardware length and positioning was checked throughout. There irrigation carried out normal saline solution subcutaneous closure with buried Vicryl suture skin closure with ra a well-padded posterior Ortho-Glass splint was placed toes were noted be warm pink following deflation of the tourniquet patient was returned to recovery room in stable condition having tolerated procedure well. Isai hernández was present for the procedure and assisted in the prepping draping retraction wound closure and dressings LYNN FLOREZ MD May 24, 2020 19:01
[2020-05-24] MEDS ORDERED: ATORVASTATIN CALCIUM 20 MG TABLET PO SCH (21:00)
[2020-05-24] MEDS ORDERED: INSULIN GLARGINE SYRINGE. SQ SCH (21:00)
[2020-05-24] MEDS: LISINOPRIL 20 MG TABLET PO SCH (21:31)
[2020-05-24] MEDS: METOPROLOL SUCC 24HR ER 25 MG TAB.ER.24H. PO SCH (21:31)
[2020-05-24] MEDS: GABAPENTIN 300 MG CAPSULE. PO SCH (21:32)
[2020-05-24] MEDS: CYCLOBENZAPRINE 10 MG TABLET. PO SCH (21:32)
[2020-05-24] MEDS: DOCUSATE SODIUM 100 MG CAPSULE. PO SCH (21:32)
[2020-05-24] MEDS: PREGABALIN 50 MG CAPSULE PO SCH (21:32)
[2020-05-25 03:00] VITALS: BP 141/83
[2020-05-25] MEDS ORDERED: MAGNESIUM HYDROXIDE 2,400 MG/30 ML ORAL.SUSP. PO PRN (06:00)
[2020-05-25 07:00] VITALS: BP 142/72
[2020-05-25] MEDS ORDERED: INSULIN LISPRO 300 UNITS/3 ML VIAL. SQ SCH (08:00)
[2020-05-25] MEDS ORDERED: metFORMIN 500 MG TABLET PO SCH (08:00)
[2020-05-25] MEDS: PREGABALIN 50 MG CAPSULE PO SCH (08:52)
[2020-05-25] MEDS: DOCUSATE SODIUM 100 MG CAPSULE. PO SCH (08:52)
[2020-05-25] MEDS: GABAPENTIN 300 MG CAPSULE. PO SCH (08:52)
[2020-05-25] MEDS: CYCLOBENZAPRINE 10 MG TABLET. PO SCH (08:52)
[2020-05-25 08:53] VITALS: BP 142/72
[2020-05-25] MEDS: LISINOPRIL 20 MG TABLET PO SCH (08:53)
[2020-05-25] MEDS: METOPROLOL SUCC 24HR ER 25 MG TAB.ER.24H. PO SCH (08:53)
[2020-05-25] MEDS ORDERED: LINAGLIPTIN 5 MG TABLET PO SCH (09:00)
--- NOTE | 2020-05-25 10:15 | PDOC ---
ORTHO PROGRESS NOTES DATE: 05/25/20 TIME: 10:12 Subjective She tells me that she has some ankle pain, she tells me it feels better this morning. Vitals Vital Signs Date Time Temp Pulse Resp B/P (MAP) Pulse Ox O2 Delivery O2 Flow Rate FiO2 05/25/20 10:10 Room Air 05/25/20 08:53 98 142/72 05/25/20 07:00 98.0 18 93 98.0 05/24/20 23:51 5.0 Labs Laboratory Tests Test 05/24/20 10:40 05/24/20 11:05 05/24/20 12:18 05/24/20 15:30 Coronavirus (PCR) Not detected (Not Detected) SARS-CoV-2 Antigen (Rapid) Negative (NEGATIVE) Glucose (Fingerstick) 206 mg/dL (70-99) 159 mg/dL (70-99) 75 mg/dL (70-99) Test 05/24/20 17:53 05/24/20 20:25 05/25/20 07:34 Glucose (Fingerstick) 123 mg/dL (70-99) 216 mg/dL (70-99) 231 mg/dL (70-99) Laboratory Tests Test 05/24/20 10:40 05/24/20 11:05 05/24/20 12:18 05/24/20 15:30 Coronavirus (PCR) Not detected (Not Detected) SARS-CoV-2 Antigen (Rapid) Negative (NEGATIVE) Glucose (Fingerstick) 206 mg/dL (70-99) 159 mg/dL (70-99) 75 mg/dL (70-99) Test 05/24/20 17:53 05/24/20 20:25 05/25/20 07:34 Glucose (Fingerstick) 123 mg/dL (70-99) 216 mg/dL (70-99) 231 mg/dL (70-99) Notes She is awake and alert and sitting in a chair. Splint is intact and dry. She can wiggle her toes. Toes are pink and warm Assessment and Plan She can be discharged home today. Activity as per her discussion with Lani. She should follow-up with him in 2 weeks. MAGDA AC II, MD May 25, 2020 10:15
--- NOTE | 2020-05-25 10:20 | DISCH ---
DISCHARGE INSTRUCTIONS Condition on Discharge Condition on Discharge: Stable Activity After Discharge Activity Instructions for Disc: Other, see below Lifting Instructions after Dis: No heavy lifting, No pulling or pushing, Do not lift >10 pounds Exercise Instruction after Dis: Exercise per therapy Driving Instructions after Dis: Do not drive today Weight Bearing Status after Di: As tolerated Diet after Discharge Diet after Discharge: Diabetic No Calorie Level Diet Texture: Regular Liquid Texture: Thin Liquid Swallowing Supervision: None needed Wound Incision Care Wound/Incision Care: Ice to area for comfort, Keep wound/cast CDI, Keep wound elevated, Do not change dressing Checks after Discharge Checks after discharge: Check blood press - daily, Check blood sugar, ac/hs Contacting the DR. after DC Call your doctor for: Concerns you may have Follow-Up Follow up with: Lani in 2 wks Treatment/Equipment after DC Adaptive Equipment Issued: None MAGDA AC II, MD May 25, 2020 10:20
--- NOTE | 2020-05-25 11:35 | NUR ---
Pt discharged home with self care. Discharge instructions and prescriptions discussed. Pt verbalized understanding and denied questions. IV removed. Assisted pt to wheelchair and was taken to main entrance and secured in car with .
== END 2020-05-25 11:15 | disposition home or self-care (01) ==
LOC: SURG 10:23 → 4 NORTH 16:35
PROVIDERS: ADMIT Orthopaedic Surgery; ATTEND Orthopaedic Surgery
DX: S82.62XA Displaced fracture of lateral malleolus of left fibula, initial encounter for closed fracture (principal); Z20.828 Contact with and (suspected) exposure to other viral communicable diseases; X58.XXXA Exposure to other specified factors, initial encounter; Y93.89 Activity, other specified; Y92.89 Other specified places as the place of occurrence of the external cause; Y99.8 Other external cause status
CPT/HCPCS: 27792; 76000; 82962; 87426; 96365; 96366; 96372; 96375; 97162; 97166; 97535; G0378; G0379; J0690; J0780; J1100; J1815; J2270; J2405; J2704; J3010; U0003; A7015; C1713; J2250

== ENCOUNTER → 2020-09-12 | Outpatient (CLI) | payer BC ==
[~2020-09-12] MED LIST changes: -ETOD500T PO; +ETOD500T4 PO; +FLUT1BLS3 IH; +GABA-585 PO; -HYDROmorphone 2 MG/ML VIAL IV PRN; -IV RINGERS,LACTATED 1000ML 1,000 ML IV SCH; +LIDO700A21 TP; -LIDOCAINE 1% PF 2 ML VIAL. ID PRN; +LISI-517 PO; -MORPHINE SULFATE 2 MG/ML VIAL. IV PRN; +MULT-742 PO; -ONDANSETRON PF 4 MG/2 ML VIAL. IV PRN; -PROCHLORPERAZINE 10 MG/2 ML VIAL. IV PRN; +SEMA1PEN SQ; -fentaNYL PF VIAL 100 MCG/2 ML VIAL IV PRN
== END ==
LOC: LAB 13:00
PROVIDERS: ATTEND Orthopaedic Surgery
DX: Z01.812 Encounter for preprocedural laboratory examination (principal); T84.84XA Pain due to internal orthopedic prosthetic devices, implants and grafts, initial encounter; Z20.828 Contact with and (suspected) exposure to other viral communicable diseases
CPT/HCPCS: U0003

== ENCOUNTER 2020-09-17 11:01 | Day surgery (SDC) | payer BC ==
[~2020-09-17] VITALS: Ht 160 cm; Wt 105.2 kg
[~2020-09-17 11:01] MED LIST changes: +ETOD500T PO; -ETOD500T4 PO; -GABA-585 PO; +HYDROmorphone 2 MG/ML VIAL IV PRN; +IV RINGERS,LACTATED 1000ML 1,000 ML IV SCH; -LIDO700A21 TP; +LIDOCAINE 2% PF 5 ML VIAL. ONE; +LISI-338 PO; -LISI-517 PO; +MIDAZOLAM HCL/PF 2 MG/2 ML VIAL. ONE; +MORPHINE SULFATE 2 MG/ML VIAL. IV PRN; +ONDANSETRON PF 4 MG/2 ML VIAL. IV PRN; +PROCHLORPERAZINE 10 MG/2 ML VIAL. IV PRN; +PROPOFOL 10 MG/ML (20ML) VIAL. IV ONE; +fentaNYL PF VIAL 100 MCG/2 ML VIAL IV PRN; +fentaNYL PF VIAL 250 MCG/5 ML VIAL ONE
[2020-09-17] MEDS ORDERED: INSULIN LISPRO 100 UNIT/ML 3ML VIAL for OP,RR ONLY. SQ PRN (11:30)
[2020-09-17] MEDS ORDERED: BUPIVACAINE MPF 0.5% 30 ML VIAL. ONE (12:14)
[2020-09-17] MEDS ORDERED: ONDANSETRON PF 4 MG/2 ML VIAL. ONE (13:28)
[2020-09-17] MEDS ORDERED: SEVOFLURANE 61 TO 120 MINUTES. IH ONE (13:28)
[2020-09-17] MEDS ORDERED: DEXAMETHASONE SOD PHOS 4 MG/ML VIAL ONE (13:28)
[2020-09-17] MEDS ORDERED: fentaNYL PF VIAL 100 MCG/2 ML VIAL ONE (14:07)
--- NOTE | 2020-09-17 14:15 | DISCH ---
DISCHARGE INSTRUCTIONS Condition on Discharge Condition on Discharge: Stable Activity After Discharge Activity Instructions for Disc: Activity as tolerated Driving Instructions after Dis: Do not drive today Weight Bearing Status after Di: As tolerated Diet after Discharge Diet after Discharge: Diabetic No Calorie Level Wound Incision Care Wound/Incision Care: Ice to area for comfort, Change dressing (May remove dressing in 3 days, keep wound covered to avoid any abrasion from clothing) Contacting the DRAlbaro after DC Call your doctor for: Concerns you may have Follow-Up Follow up with: Dr. Garibay 10 days Treatment/Equipment after DC Adaptive Equipment Issued: None LYNN GARIBAY MD Sep 17, 2020 14:15
[2020-09-17] MEDS ORDERED: oxyCODONE/APAP 5/325 1 TAB TABLET PO ONE (14:30)
[2020-09-17 14:45] VITALS: BP 128/78
--- NOTE | 2020-09-17 15:51 | PDOC4 ---
Operative Note Operative Note Date of surgery: 09/17/2020 Preoperative diagnosis: Retained hardware status post fixation of left distal fibula fracture with syndesmotic fixation for instability Postoperative diagnosis: Same with healed ankle joint mortise with anatomic reduction and healing of syndesmosis Operative procedure: Removal of syndesmotic screws x2 Surgeon: Lani Research Manager: Isai hernández Anesthesia: General Estimated blood loss: 10 cc Complications: None Operative indications: Please see my orthopedic clinic note for detailed operative indications Operative text: Patient was identified procedure verified patient placed in the supine position on the operating table. After adequate amounts of general anesthesia were administered the left lower extremity was prepped and draped in standard sterile fashion with a thigh tourniquet. After timeout was performed patient procedure identified and verified placement of the syndesmotic screws was located under fluoroscopic guidance and a small incision was carried out to expose both of the screws after dissection of deep tissue. Both screws were removed and ankle stability checked under fluoroscopic guidance to verify hardware removal as well as the intact nature of the ankle joint mortise and syndesmosis. There irrigation carried out normal saline solution closure accomplished with buried Vicryl suture skin closure with nylon suture. Sterile dressings were applied and patient was returned to recovery room in stable condition having tolerated procedure well. Isai hernández was present for the procedure assisted in patient prepping draping closure and dressings LYNN FLOREZ MD Sep 17, 2020 15:51
== END 2020-09-17 15:00 | disposition home or self-care (01) ==
LOC: SURG 11:01
PROVIDERS: ATTEND Orthopaedic Surgery
DX: T84.84XA Pain due to internal orthopedic prosthetic devices, implants and grafts, initial encounter (principal); E78.00 Pure hypercholesterolemia, unspecified; I10 Essential (primary) hypertension; J44.9 Chronic obstructive pulmonary disease, unspecified; E66.9 Obesity, unspecified; G47.30 Sleep apnea, unspecified; E11.9 Type 2 diabetes mellitus without complications; M19.90 Unspecified osteoarthritis, unspecified site; K21.9 Gastro-esophageal reflux disease without esophagitis; F17.210 Nicotine dependence, cigarettes, uncomplicated; Z87.440 Personal history of urinary (tract) infections; Z90.49 Acquired absence of other specified parts of digestive tract; Z90.710 Acquired absence of both cervix and uterus; Z98.890 Other specified postprocedural states; Z79.899 Other long term (current) drug therapy; Z79.82 Long term (current) use of aspirin; Z79.84 Long term (current) use of oral hypoglycemic drugs; Z68.41 Body mass index [BMI] 40.0-44.9, adult; X58.XXXA Exposure to other specified factors, initial encounter; Y93.89 Activity, other specified; Y92.89 Other specified places as the place of occurrence of the external cause; Y99.8 Other external cause status
CPT/HCPCS: 20680; 82962; J0690; J1100; J2405; J2704; J3010; J3490; 76000; J2250

== ENCOUNTER 2020-11-05 18:47 | Emergency (ER) | payer BC ==
[~2020-11-05] VITALS: Ht 162.6 cm; Wt 50.6 kg
[~2020-11-05 18:47] MED LIST changes: -HYDROmorphone 2 MG/ML VIAL IV PRN; -IV RINGERS,LACTATED 1000ML 1,000 ML IV SCH; -LIDOCAINE 2% PF 5 ML VIAL. ONE; -LISI-338 PO; +LISI-517 PO; -MIDAZOLAM HCL/PF 2 MG/2 ML VIAL. ONE; -MORPHINE SULFATE 2 MG/ML VIAL. IV PRN; -ONDANSETRON PF 4 MG/2 ML VIAL. IV PRN; -PROCHLORPERAZINE 10 MG/2 ML VIAL. IV PRN; -PROPOFOL 10 MG/ML (20ML) VIAL. IV ONE; -fentaNYL PF VIAL 100 MCG/2 ML VIAL IV PRN; -fentaNYL PF VIAL 250 MCG/5 ML VIAL ONE
[2020-11-05 18:56] VITALS: BP 201/98
--- NOTE | 2020-11-05 19:08 | PHYS DOC ---
Past Medical History Past Medical History: COPD, Diabetes-Type II, High Cholesterol, Hypertension, Sciatica, Other Additional Past Medical Histor: sleep apnea,CHRONIC LOWER BACK PAIN/SLIPPED DISCS/TACHYCARDIA Past Surgical History: , Hysterectomy, Other Additional Past Surgical Histo: cervical cancer, R hand Smoking Status: Current Every Day Smoker Alcohol Use: None Drug Use: None General Adult EDM: Chief Complaint: BACK PAIN - NO INJURY HPI: HPI: 45-year-old female significant history of chronic low back pain as a consequence of degenerative disc disease, with radiation to the right lower extremity, who presents for evaluation of acute on chronic low back pain. She is pending an upcoming consultation for a pain stimulator at [facility] next week . She is typically on oxycodone for pain. She reports worsening of her baseline chronic low back pain. No new features. No bowel or bladder dysfunction, or focal weakness. No recent fall or trauma. Review of Systems: Review of Systems: Gen: No fever, chills. Eyes: No blurred vision, diplopia. ENT: No nasal congestion, sore throat. CV: No CP, palpitations. Resp. No SOB, cough. GI: No abd pain, N/V. : No dysuria, hematuria, bowel or bladder dysfunction. Neuro: No CASTORENA, dizziness, weakness. MSK: No myalgia, arthralgia. Reports back pain. Skin: No acute rash or lesion. Heart Score: Risk Factors: Risk Factors: DM, Current or recent (<one month) smoker, HTN, HLP, family history of CAD, obesity. Risk Scores: Score 0 - 3: 2.5% MACE over next 6 weeks - Discharge Home Score 4 - 6: 20.3% MACE over next 6 weeks - Admit for Clinical Observation Score 7 - 10: 72.7% MACE over next 6 weeks - Early Invasive Strategies Current Medications: Current Medications Medications (Trade) Dose Ordered Sig/Xiao Start Time Stop Time Status Last Admin Dose Admin Diazepam (Valium) 5 mg 1X ONCE 11/05/20 19:15 11/05/20 19:16 UNV Lidocaine (Lidoderm) 1 patch 1X 11/05/20 19:15 UNV Morphine Sulfate (Morphine Sulfate) 4 mg 1X ONCE 11/05/20 19:15 11/05/20 19:16 UNV Allergies: Allergies: Allergies Coded Allergies Type Severity Reaction Last Updated Verified No Known Drug Allergies 1/5/21 No Physical Exam: PE: Gen: NAD. Well nourished. Head: NC/AT. Eyes: No scleral icterus. No conjunctival injection. ENT: MMM. Neck: Supple. CV: RRR. Peripheral pulses intact. Resp: CTAB. Abd: Soft. NT. ND. MSK: No peripheral cyanosis. No edema. Back: Primarily right-sided thoracolumbar tenderness without overlying skin changes. No midline step-off. Neuro: A&Ox3. Strength & sensation grossly intact throughout. Skin. Warm. Dry. Psych: Appropriate mood & affect. EKG: EKG: [] Radiology/Procedures: Radiology/Procedures: [] Course & Med Decision Making: Course & Med Decision Making Pertinent Labs and Imaging studies reviewed. (See chart for details) In summary, 45-year-old female with history of chronic low back pain with radiation to the right lower extremity, who presents for evaluation of acute exacerbation of low back pain. No focal neurological deficits. No clinical signs or symptoms concerning for acute compressive myelopathy requiring emergent neurosurgical consultation. The patient has had prior imaging studies done, and is pending an upcoming appointment for a neurostimulator implantation. Patient was given lidocaine patch, Valium, and morphine IM, with efficacy. The patient states that she is only on Tylenol Motrin. No muscle relaxants or neuropathic pain medication. As such, the patient will be started on Neurontin 100 milligrams 3 times daily, lidocaine patches, cyclobenzaprine. Do not feel that repeat spine imaging would liner roll changer at this point. Will home. Outpatient follow-up. Return precautions given. Miriam Disclaimer: Miriam Disclaimer: This electronic medical record was generated, in whole or in part, using a voice recognition dictation system. Departure Departure Impression: Primary Impression: Chronic lower back pain Disposition: 01 DC HOME SELF CARE/HOMELESS Condition: STABLE Referrals: MARLENE AVILA MD (PCP) Patient Instructions: Back Pain, Adult, [id number] Scripts Cyclobenzaprine Hcl (CYCLOBENZAPRINE HCL) 10 Mg Tablet 1 TAB PO TID, #21 TAB Prov: LE,EMELY H DO 11/05/20 Lidocaine (Lidocaine PATCH ) 1 Each Adh..patch 1 EACH TP DAILY for FOR LOCAL PAIN, #10 PATCH REMOVE AFTER 12 HOURS Prov: LE,EMELY H DO 11/05/20 Gabapentin (NEURONTIN ) 100 Mg Capsule 100 MG PO TID for NEUROGENIC PAIN, #30 CAP Prov: EMELY GRUBBS DO 11/05/20 EMELY GRUBBS DO Nov 05, 2020 19:08
[2020-11-05] MEDS ORDERED: diazePAM 5 MG TABLET PO ONE (19:15)
[2020-11-05] MEDS ORDERED: LIDOCAINE (700MG/PATCH) PATCH. TD SCH (19:15)
[2020-11-05] MEDS ORDERED: MORPHINE SULFATE 4 MG/ML VIAL. IM ONE (19:15)
[2020-11-05] MEDS ORDERED: GABA-585 PO (21:04)
[2020-11-05] MEDS ORDERED: LIDO700A21 TP (21:04)
[2020-11-05] MEDS ORDERED: CYCL10TA2 PO (21:04)
== END 2020-11-05 21:14 | disposition home or self-care (01) ==
LOC: ER 18:47
DX: G89.29 Other chronic pain (principal); M54.5 Low back pain; J44.9 Chronic obstructive pulmonary disease, unspecified; E11.9 Type 2 diabetes mellitus without complications; E78.00 Pure hypercholesterolemia, unspecified; I10 Essential (primary) hypertension; F17.200 Nicotine dependence, unspecified, uncomplicated; Z90.710 Acquired absence of both cervix and uterus; Z98.890 Other specified postprocedural states
CPT/HCPCS: 96372; 99283; J2270

== ENCOUNTER → 2020-12-26 | Outpatient (CLI) | payer BC ==
[~2020-12-26] MED LIST changes: +GABA-585 PO; +LIDO700A21 TP
--- NOTE | 2020-12-26 09:37 | EKG ---
[facility] [address] [place] [address] Test Date: 2020-12-26 Test Time: 09:34:44 Pat Name: DANYEL GARAY Department: Room: Gender: F Log Sorting Supervisor: VALDEMAR : 1975 Requested By: KENNY CHICAS Order Number: [id number] Reading MD: Chuy Gaitan MD Measurements Intervals [place] Rate: 100 P: 66 VA: 160 QRS: 43 QRSD: 88 T: 44 QT: 314 QTc: 408 Interpretive Statements SINUS RHYTHM Electronically Signed On 12-26-2020 10:13:29 CDT by Chuy Gaitan MD
== END ==
LOC: EKG 09:17
PROVIDERS: ATTEND Anesthesiology
DX: Z01.810 Encounter for preprocedural cardiovascular examination (principal); Z86.39 Personal history of other endocrine, nutritional and metabolic disease
CPT/HCPCS: 93005

== ENCOUNTER 2021-02-17 19:16 | Emergency (ER) | payer BC ==
[~2021-02-17 19:16] MED LIST changes: -ETOD500T PO; +ETOD500T4 PO
[2021-02-17 20:43] VITALS: BP 197/97
== END 2021-02-17 22:33 | disposition left against medical advice (07) ==
LOC: ER 19:16
DX: M79.621 Pain in right upper arm (principal); Z53.21 Procedure and treatment not carried out due to patient leaving prior to being seen by health care provider

== ENCOUNTER 2021-04-21 00:04 | Emergency (ER) | payer OTHER, BC ==
[~2021-04-21] VITALS: Ht 162.6 cm; Wt 105.9 kg
[2021-04-21] MEDS ORDERED: fentaNYL PF VIAL 100 MCG/2 ML VIAL IVP ONE (01:00)
[2021-04-21 01:14] LABS: BASO % 1 % (0-3); EOS # 0.2 x10^3/uL (0.0-0.7); EOS % 2 % (0-3); HEMATOCRIT 40.4 % (36.0-47.0); HEMOGLOBIN 13.9 g/dL (12.0-15.5); LYMPH # 2.7 x10^3/uL (1.0-4.8); LYMPH % 31 % (24-48); MEAN CORPUSCULAR HEMOGLOBIN 31 pg (25-35); MEAN CORPUSCULAR HGB CONC 34 g/dL (31-37); MEAN CORPUSCULAR VOLUME 89 fL (79-100); MONO # 0.6 x10^3/uL (0.0-1.1); MONO % 7 % (0-9); NEUT # 5.2 x10^3/uL (1.8-7.7); NEUT % 60 % (31-73); PLATELET COUNT 297 x10^3/uL (140-400); RED BLOOD COUNT 4.55 x10^6/uL (3.50-5.40); RED CELL DISTRIBUTION WIDTH 13.1 % (11.5-14.5); WHITE BLOOD COUNT 8.7 x10^3/uL (4.0-11.0)
[2021-04-21 01:29] LABS: CALCIUM 9.4 mg/dL (8.5-10.1); CREATININE 0.7 mg/dL (0.6-1.0); GFR 90.1; PREG TEST PT QUAL NEGATIVE (NEG)
[2021-04-21 01:34] LABS: ALBUMIN 3.7 g/dL (3.4-5.0); ALBUMIN/GLOBULIN RATIO 1.2 (1.0-1.7); TOTAL BILIRUBIN 0.2 mg/dL (0.2-1.0); TOTAL PROTEIN 6.8 g/dL (6.4-8.2)
--- NOTE | 2021-04-21 01:38 | EKG ---
[facility] [address] [place] [address] Test Date: 2021-04-21 Test Time: 01:00:51 Pat Name: DANYEL GARAY Department: Room: Gender: F Social Economist: : 1975 Requested By: GOPAL LAWSON Order Number: [id number] Reading MD: Measurements Intervals [place] Rate: 98 P: 66 MS: 176 QRS: 31 QRSD: 92 T: 49 QT: 322 QTc: 413 Interpretive Statements SINUS RHYTHM NORMAL ECG RI6.02 No previous ECG available for comparison
[2021-04-21 01:45] LABS: BILIRUBIN,URINE NEGATIVE (NEG); CLARITY,URINE CLEAR; COLOR,URINE YELLOW; NITRITE,URINE NEGATIVE (NEG); PH,URINE 6.5 (<5.0-8.0); PROTEIN,URINE NEGATIVE (NEG-TRACE); UROBILINOGEN,URINE 0.2 mg/dL (0.2 mg/dL)
[2021-04-21] MEDS ORDERED: CONTRAST GIVEN. MC PRN (01:45)
[2021-04-21] MEDS ORDERED: IOHEXOL 350 MG/ML 100 ML VIAL. IV ONE (01:45)
[2021-04-21 01:51] LABS: BACTERIA,URINE FEW /HPF (0-FEW); RBC,URINE 0 /HPF (0-2); WBC,URINE OCC /HPF (0-4); YEAST,URINE PRESENT /HPF
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
[2021-04-21 03:12] VITALS: BP 159/72
--- NOTE | 2021-04-21 04:57 | RAD ---
Study: XR CHEST 1V Indication: Chest pain. Comparison: 05/15/2020 Findings: The cardiomediastinal silhouette and lovely are within normal limits. No localized airspace opacity, pl eural effusion or pneumothorax. Spinal cord stimulator device. Impression: No acute radiographic abnormality of the chest. Electronically signed by: ADDY ROJO MD (04/21/2021 4:55 AM) [facility]
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
== END 2021-04-21 03:29 | disposition home or self-care (01) ==
LOC: ER 00:04
DX: S20.312A Abrasion of left front wall of thorax, initial encounter (principal); M54.2 Cervicalgia; R10.9 Unspecified abdominal pain; J44.9 Chronic obstructive pulmonary disease, unspecified; E11.9 Type 2 diabetes mellitus without complications; E78.00 Pure hypercholesterolemia, unspecified; I10 Essential (primary) hypertension; G89.29 Other chronic pain; F17.200 Nicotine dependence, unspecified, uncomplicated; V43.52XA Car driver injured in collision with other type car in traffic accident, initial encounter; Y93.I9 Activity, other involving external motion; Y92.89 Other specified places as the place of occurrence of the external cause; Y99.8 Other external cause status
CPT/HCPCS: 36415; 71045; 71275; 72170; 74174; 80053; 81001; 83690; 84484; 84703; 85025; 86850; 86900; 86901; 93005; 96374; 99285; J3010; Q9967

== ENCOUNTER 2021-05-29 19:57 | Emergency (ER) | payer BC, OTHER ==
[~2021-05-29] VITALS: Ht 162.6 cm; Wt 106.0 kg
--- NOTE | 2021-05-29 20:44 | PHYS DOC ---
Past Medical History Past Medical History: COPD, Diabetes-Type II, High Cholesterol, Hypertension, Sciatica, Other Additional Past Medical Histor: sleep apnea,CHRONIC LOWER BACK PAIN/SLIPPED DISCS/TACHYCARDIA Past Surgical History: , Hysterectomy, Other Additional Past Surgical Histo: cervical cancer, R hand, SPINAL STIMULATOR Smoking Status: Current Every Day Smoker Alcohol Use: None Drug Use: None General Adult EDM: Chief Complaint: BACK PAIN - NO INJURY HPI: HPI: Patient is a 46 year old female past medical history of chronic back pain presents with a chief complaint of acute exacerbation of chronic back pain. Patient's back pain is located in her lumbar region. Patient is under the care of the pain management clinic she has a pain neurostimulator placed 5 months ago. Patient states over the last few days pain has been uncontrollable. Patient has been taking her oxycodone with minimal relief. Tonight patient called pain clinic and was advised to go to the emergency department. Pain is in the typical location in her lumbar region with radiation down her back. She denies any loss of bowel or bladder center or saddle anesthesia. Patient ambulated into the ER. She arrived by private vehicle. She appears in no acute distress. Review of Systems: Review of Systems: Review of systems: Constitutional symptoms- No fever, no chills. Eyes- No Discharge, No Visual Loss Respiratory symptoms- No shortness of breath, No wheezing, No Dyspnea on Exertion Cardiovascular Systems; No chest pain, No Palpitations, No syncope Gastrointestinal symptoms: NO abdominal pain, no nausea, no vomiting or diarrhea. Genitourinary symptoms: No dysuria. Musculoskeletal symptoms: Positive back pain No extremity pain. NEUROLOGICAL Symptoms: No headache, no generalized weakness; No focal Weakness Skin: No rash. Heart Score: C/O Chest Pain: N/A Risk Factors: Risk Factors: DM, Current or recent (<one month) smoker, HTN, HLP, family history of CAD, obesity. Risk Scores: Score 0 - 3: 2.5% MACE over next 6 weeks - Discharge Home Score 4 - 6: 20.3% MACE over next 6 weeks - Admit for Clinical Observation Score 7 - 10: 72.7% MACE over next 6 weeks - Early Invasive Strategies Current Medications: Current Medications Medications (Trade) Dose Ordered Sig/Xiao Start Time Stop Time Status Last Admin Dose Admin Morphine Sulfate (Morphine Sulfate) 4 mg 1X ONCE 05/29/21 20:45 05/29/21 20:46 Allergies: Allergies: Allergies Coded Allergies Type Severity Reaction Last Updated Verified No Known Drug Allergies 09/17/20 No Physical Exam: PE: Constitutional: Well developed, well nourished, no acute distress, non-toxic appearance. [] HENT: Normocephalic, atraumatic, bilateral external ears normal, oropharynx moist, no oral exudates, nose normal. [] Eyes: PERRLA, EOMI, conjunctiva normal, no discharge. [] Neck: Normal range of motion, no tenderness, supple, no stridor. [] Cardiovascular:Heart rate regular rhythm, no murmur [] Lungs & Thorax: Bilateral breath sounds clear to auscultation [] Abdomen: Bowel sounds normal, soft, no tenderness, no masses, no pulsatile masses. [] Skin: Warm, dry, no erythema, no rash. [] Back: No tenderness, no CVA tenderness. [] Extremities: No tenderness, no cyanosis, no clubbing, ROM intact, no edema. [] Neurologic: Alert and oriented X 3, normal motor function, normal sensory function, no focal deficits noted. [] Psychologic: Affect normal, judgement normal, mood normal. [] EKG: EKG: [] Radiology/Procedures: Radiology/Procedures: [] Course & Med Decision Making: Course & Med Decision Making Pertinent Labs and Imaging studies reviewed. (See chart for details) [] Patient with chronic back pain. She was treated with morphine and discharged. Patient advised to follow-up with pain clinic. Miriam Disclaimer: Miriam Disclaimer: This electronic medical record was generated, in whole or in part, using a voice recognition dictation system. Departure Departure Referrals: MARLENE AVILA MD (PCP) DONTE HERNANDEZ DO May 29, 2021 20:43
[2021-05-29] MEDS ORDERED: MORPHINE SULFATE 4 MG/ML INJ. IM ONE (20:45)
[2021-05-29 21:24] VITALS: BP 146/77
== END 2021-05-29 21:37 | disposition home or self-care (01) ==
LOC: ER 19:57
DX: M54.5 Low back pain (principal); G89.29 Other chronic pain; J44.9 Chronic obstructive pulmonary disease, unspecified; E11.9 Type 2 diabetes mellitus without complications; E78.00 Pure hypercholesterolemia, unspecified; I10 Essential (primary) hypertension; F17.200 Nicotine dependence, unspecified, uncomplicated; Z98.890 Other specified postprocedural states; Z90.710 Acquired absence of both cervix and uterus
CPT/HCPCS: 96372; 99283; J2270

== ENCOUNTER 2021-09-22 09:23 | Emergency (ER) | payer BC ==
[~2021-09-22] VITALS: Ht 162.6 cm; Wt 109.0 kg
[~2021-09-22 09:23] MED LIST changes: +CYCL10TA19 PO; -CYCL10TA2 PO; -DULO60CA6 PO; +DULO60CA7 PO; +ETOD500T3 PO; -ETOD500T4 PO; -LISI-517 PO; +LISI5TAB15 PO
[2021-09-22 09:38] VITALS: BP 198/95
[2021-09-22] MEDS ORDERED: ORPHENADRINE CITRATE 60 MG/2 ML VIAL. IM ONE (10:00)
[2021-09-22] MEDS ORDERED: KETOROLAC 60 MG/2 ML VIAL. IM ONE (10:00)
[2021-09-22 10:14] LABS: BILIRUBIN,URINE NEGATIVE (NEG); CLARITY,URINE CLEAR; COLOR,URINE YELLOW; NITRITE,URINE NEGATIVE (NEG); PH,URINE 5.5 (<5.0-8.0); PROTEIN,URINE NEGATIVE (NEG-TRACE); UROBILINOGEN,URINE 0.2 mg/dL (0.2 mg/dL)
--- NOTE | 2021-09-22 10:15 | PHYS DOC ---
Past Medical History Past Medical History: COPD, Diabetes-Type II, High Cholesterol, Hypertension, Sciatica, Other Additional Past Medical Histor: sleep apnea,CHRONIC LOWER BACK PAIN/SLIPPED DISCS/TACHYCARDIA Past Surgical History: , Hysterectomy, Other Additional Past Surgical Histo: cervical cancer, R hand, [employer] Smoking Status: Current Every Day Smoker Alcohol Use: Rarely Drug Use: None General Adult EDM: Chief Complaint: BACK PAIN - NO INJURY HPI: HPI: Patient is a 46 year old female with history of chronic low back pain with sciatica and diabetic neuropathy who presents with 3-day history of left-sided low back pain with radiation into her left lower extremity. Patient states her symptoms began on Wednesday or Wednesday and have worsened since. She reports she follows with her primary care doctor as well as pain management for her symptoms. When she called her pain management doctor this morning, they advised that she seek treatment in the emergency department. She states she took oxycodone at home once, but it did not help. Patient reports her pain is worse when she has a full bladder and when she walks. She denies dysuria, hematuria, saddle anesthesia, bowel or bladder incontinence, IV drug use. Review of Systems: Review of Systems: Constitutional: Denies fever, chills or generalized weakness Eyes: Denies change in visual acuity, visual field deficits or discharge HENT: Denies ear pain, nasal congestion or sore throat Respiratory: Denies cough or shortness of breath Cardiovascular: Denies chest pain, palpitations or edema GI: Denies abdominal pain, nausea, vomiting, bloody stools or diarrhea : See HPI Musculoskeletal: See HPI Integument: Denies rash or other skin lesion Neurologic: See HPI Heart Score: C/O Chest Pain: No Allergies: Allergies: Allergies Coded Allergies Type Severity Reaction Last Updated Verified No Known Drug Allergies 09/17/20 No Physical Exam: PE: Constitutional: Well developed, well nourished, no acute distress, non-toxic appearance. Neck: Normal range of motion, no step-off, no tenderness, supple, no stridor. Cardiovascular: Heart rate regular rhythm, no murmur. Lungs & Thorax: Bilateral breath sounds clear to auscultation. Abdomen: Bowel sounds normal, soft, no tenderness, no masses, no pulsatile masses. Skin: Warm, dry, no erythema, no rash. Back: No step-off, no midline tenderness, left-sided high lumbar paraspinal spasm and tenderness appreciated, no CVA tenderness. Extremities: No tenderness, no cyanosis, no clubbing, ROM intact, no edema. Neurologic: Alert and oriented x4, normal motor function, sensory function intact, no focal deficits noted. [] Current Patient Data: Labs: Laboratory Tests Test 09/22/21 10:00 Urine Collection Type Unknown Urine Color Yellow Urine Clarity Clear Urine pH 5.5 (<5.0-8.0) Urine Specific [place] >=1.030 (1.000-1.030) Urine Protein Negative mg/dL (NEG-TRACE) Urine Glucose (UA) Negative mg/dL (NEG) Urine Ketones (Stick) Trace mg/dL (NEG) Urine Blood Negative (NEG) Urine Nitrite Negative (NEG) Urine Bilirubin Negative (NEG) Urine Urobilinogen Dipstick 0.2 mg/dL (0.2 mg/dL) Urine Leukocyte Esterase Negative (NEG) Urine RBC 0 /HPF (0-2) Urine WBC 1-4 /HPF (0-4) Urine Squamous Epithelial Cells Mod /LPF Urine Bacteria Few /HPF (0-FEW) Urine Mucus Mod /LPF Vital Signs: Vital Signs Date Time Temp Pulse Resp B/P (MAP) Pulse Ox O2 Delivery O2 Flow Rate FiO2 09/22/21 09:38 97.5 108 22 198/95 (129) 95 Room Air 97.5 Course & Med Decision Making: Course & Med Decision Making Pertinent Labs and Imaging studies reviewed. (See chart for details) Patient is a 46-year-old diabetic female with history of "slipped discs" presents with 3-day history of exacerbation of chronic back pain. Patient denies any strenuous activity, injury or trauma. Paraspinal muscle spasm appreciated on high lumbar left side. Patient provided with IM Toradol and Norflex. Will perform urinalysis as well. 1040: On reevaluation, patient's pain is improved. Discussed use of muscle re laxer combined with NSAID and nonpharmacologic strategies to target muscle spasm. No abx treatment necessary at this time. Patient will be dc to home with e-rx for norflex PO. Patient advised to follow up with her pain management doctor for further treatment and PCP for blood pressure. She understands and is agreeable to dc plan. Miriam Disclaimer: Miriam Disclaimer: This electronic medical record was generated, in whole or in part, using a voice recognition dictation system. Departure Departure Impression: Primary Impression: Acute exacerbation of chronic low back pain Additional Impression: Diabetic neuropathy Qualified Codes: E11.42 - Type 2 diabetes mellitus with diabetic polyneuropathy Disposition: HOME / SELF CARE / HOMELESS Condition: STABLE Referrals: MARLENE AVILA MD (PCP) Patient Instructions: Back Exercises, [id number], Diabetic Neuropathy, Sciatica, [id number] Additional Instructions: EMERGENCY DEPARTMENT GENERAL DISCHARGE INSTRUCTIONS Thank you for coming to [facility] Emergency Department (ED) today and trusting us with you care. We trust that you had a positive experience in our Emergency Department. If you wish to speak to the department management, you may call the Director at . YOUR FOLLOW UP INSTRUCTIONS ARE FOLLOWS: 1. Follow up with your primary doctor and/or your painting technician for further management. 2. A lab test or culture has been done, your results will be reviewed and you will be notified if you need a change in treatment. 3. Take the Norflex (orphenadrine citrate) as prescribed. You should also take Aleve (naproxen) per box instructions for pain and inflammation. ADDITIONAL INSTRUCTIONS AND INFORMATION: 1. Your care today has been supervised by a physician who is specially trained in emergency care. Many problems require more than one evaluation for a complete diagnosis and treatment. We recommend that you schedule your follow up appointment as recommended to ensure complete treatment of you illness or injury. If you are unable to obtain follow up care and continue to have a problem, or if your condition worsens, we recommend that you return to the ED. 2. We are not able to safely determine your condition over the phone nor are we able to give sound medical advice over the phone. For these safety reasons, if you call for medical advice we will ask you to come to the ED for further ev aluation. 3. If you have any questions regarding these discharge instructions please call the ED at . SAFETY INFORMATION: In the interest of safety, wellness, and injury prevention; we encourage you to wear your seat belt, if you smoke; quite smoking, and we encourage family to use a protective helmet for bicycling and other sporting events that present an increased risk for head injury. IF YOUR SYMPTOMS WORSEN OR NEW SYMPTOMS DEVELOP, OR YOU HAVE CONCERNS ABOUT YOUR CONDITION; OR IF YOUR CONDITION WORSENS WHILE YOU ARE WAITING FOR YOUR FOLLOW UP APPOINTMENT; EITHER CONTACT YOUR PRIMARY CARE DOCTOR, THE PHYSICIAN WHOSE NAME AND NUMBER YOU WERE GIVEN, OR RETURN TO THE ED IMMEDIATELY. Scripts Orphenadrine Citrate (ORPHENADRINE CITRATE) 100 Mg Tablet.er 1 TAB PO Q12HR, #10 TAB 1 Refill Prov: SHRUTHI LEE 09/22/21 SHRUTHI LEE Sep 22, 2021 10:14
[2021-09-22 10:42] LABS: BACTERIA,URINE FEW /HPF (0-FEW); RBC,URINE 0 /HPF (0-2)
[2021-09-22] MEDS ORDERED: ORPH100T PO (10:49)
== END 2021-09-22 11:11 | disposition home or self-care (01) ==
LOC: ER 09:23
DX: G89.29 Other chronic pain (principal); M54.40 Lumbago with sciatica, unspecified side; E11.40 Type 2 diabetes mellitus with diabetic neuropathy, unspecified; J44.9 Chronic obstructive pulmonary disease, unspecified; E78.00 Pure hypercholesterolemia, unspecified; I10 Essential (primary) hypertension; F17.200 Nicotine dependence, unspecified, uncomplicated
CPT/HCPCS: 81001; 96372; 99284; J1885; J2360

== ENCOUNTER → 2022-02-10 | Outpatient (CLI) | payer BC ==
[2022-01-05 15:05] VITALS: BP 160/72
[~2022-02-10] MED LIST changes: +REGADENOSON 0.4 MG/5 ML DISP.SYRIN. IV ONE
--- NOTE | 2022-02-10 12:27 | RAD ---
MR#: [id number] Date of Study: 02/10/2022 Ordering Physician: TRACEY PRICE, Referring Physician: RAGHAVENDRA NEWTON Tech: RT Hiro MazariegosR) (N) APPROVED REPORT Test Type: Pharmacological Stress Nurse/Tech: Raeann Kraus RN Test Indications: Chest pain,tachycardia,family history Cardiac History: Family history, Hypertension, Diabetes,smoker Medications: See Electronic Medical Record Medical History: See Electronic Medical Record Resting ECG: SR Resting Heart Rate: 87 bpm Resting Blood Pressure: 138/76mmHg Pretest Chest Pain: No chest pain Nurse/Tech Notes S1,S2 and lungs diminished in the bases. Consent: The procedure was explained to the patient in lay terms. Informed consent was witnessed. Andrew eout was entered into [employer]. History and Stress Test performed by RT Delilah (R) (N) Pharm. Details Pharmacologic stress testing was performed using 0.4mg per 5ml of regadenoson given intravenously ove r 7-10 seconds. Stress Symptoms Dyspnea,chest pain 5/10 during first 2 minutes of injection which subsided by end of study POST EXERCISE Reason for Termination: Infusion complete Target HR: Yes Max HR: 161 bpm 109% of Maximum Predicted HR: 147 bpm Max Blood Pressure: 150/59mmHg Blood Pressure response to exercise: Normal blood pressure response during stress. Heart Rate response to exercise: WNL Chest Pain: Yes. see note above Arrhythmia: No. ST Change: No. INTERPRETATION Stress EKG Conclusion: No evidence of stress-induced EKG changes Imaging Protocol IMAGE PROTOCOL: Rest Tc-99m/stress Tc-99m 1 day Rest: Stress: Viability: Radiopharm.Tc99m [id number] Sestamibi Dose10.2mCi 31mCi Duration 15min. 10min. Img Date 02/10/2022 02/10/2022 Inj-Img [id number]. 60min. Rest Admin Site:IV - Right AntecubitalAdministrator:ZACK Reeves, ARRT (R)(N) Stress Admin Site: IV - Right AntecubitalAdministrator: An Sevilla, NMTCB, ARRT (R)(N) STRESS DATA End Diast. Vol.63.0mlAv. Heart Rate96.0bpm End Syst. Vol.12.0mlCO Index BSA0.0L/min Myocardial Tuyx185.0gEject. Clxklvii49.0% Stress Rates Pk. Fill Rate5.68EDV/secLVtime Pk. Fill 168.72msec Pk. Empty Rate5.90ESV/secLVtime Pk. Vhttv558.59msec 09/15 Pk. Fill1.52EDV/sec Stress Scores Regional WT0.00Summed WT0.00 Regional WM0.00Summed WM1.00 The rest and stress images show normal perfusion, normal contraction and thickening. LV Perf. Quant 17 Seg. SSS4.00 17 Seg. SRS6.00 17 Seg. SDS1.00 Stress Defect Extent (% LAD)11.90Rest Defect Extent (% LAD)23.80Rev. Defect Extent (% LAD)0.00 Stress Defect Extent (% LCX) 11.30Rest Defect Extent (% LCX)13.80Rev. Defect Extent (% LCX)0.00 Stress Defect Extent (% RCA)0.00Rest Defect Extent (% RCA)0.00Rev. Defect Extent (% RCA)0.00 Stress Defect Extent (% REJI)6.10Rest Defect Extent (% REJI)10.70Rev. Defect Extent (% REJI)0.00 Other Information Quality:Average Risk Assessment: Low Risk Conclusion 1. No evidence of EKG changes with stress testing. 2. Normal perfusion at stress/rest. 3. Breast attenuation artifact noted. 4. Low risk study. 5. EF > 60%. Signed by : Chuy Gaitan, Electronically Approved : 02/10/2022 12:27:04
== END ==
LOC: NM 08:15
PROVIDERS: ATTEND Internal Medicine Cardiovascular Disease
DX: R07.9 Chest pain, unspecified (principal)
CPT/HCPCS: 78452; 93017; A9500; J2785